=== PATIENT | female | born 1955 | race Caucasian/White ===

== ENCOUNTER 2017-11-28 13:17 | Inpatient (IN) | payer OTHER ==
[2017-11-28] MEDS ORDERED: IPRATROPIUM-ALBUTEROL 3 ML NEB INHALATION STA ×2 (13:33→14:51)
[2017-11-28] MEDS ORDERED: methylPREDNISolone SOD SUCCI 125 MG/2 ML VIAL IV STA (13:33)
[2017-11-28 14:12] LABS: Basophils % (A) 1 %; Eosinophils % (A) 1 %; HCT 40.2 % (34.0-46.0); HGB 12.9 gm/dL (11.4-16.0); Lymphocytes % (A) 22 %; MCH 25.7 pg (25.0-35.0); MCHC 32.1 g/dL (31.0-37.0); MCV 80.1 fL (80.0-100.0); Mean Platelet Volume 8.1; Monocytes # (A) 0.2 k/uL (0-1.0); Monocytes % (A) 5 %; Neutrophils # (A) 3.1 k/uL (1.3-7.7); Neutrophils % (A) 71 %; Platelet Count 164 k/uL (150-450); RBC 5.02 m/uL (3.80-5.40); RDW 14.1 % (11.5-15.5); WBC 4.4 k/uL (3.8-10.6)
[2017-11-28 14:23] LABS: ALT 155 U/L (9-52); AST 149 U/L (14-36); Albumin 4.1 g/dL (3.5-5.0); Alkaline Phosphatase 77 U/L (38-126); Anion Gap 15 mmol/L; Blood Urea Nitrogen 7 mg/dL (7-17); Calcium 9.5 mg/dL (8.4-10.2); Carbon Dioxide 24 mmol/L (22-30); Chloride 101 mmol/L (98-107); Glucose 136 mg/dL (74-99); Potassium 3.5 mmol/L (3.5-5.1); Sodium 140 mmol/L (137-145); Total Bilirubin 0.4 mg/dL (0.2-1.3); Total Protein 7.3 g/dL (6.3-8.2)
--- NOTE | 2017-11-28 14:26 | ED ---
General Adult HPI - General Chief complaint: Upper Respiratory Infection Stated complaint: FRANSISCA Time Seen by Provider: 11/28/17 13:25 Source: patient, RN notes reviewed Mode of arrival: ambulatory Limitations: no limitations - History of Present Illness Initial comments: Patient 61-year-old female with significant past medical history for asthma presenting today with a chief complaint of increased cough congestion and shortness of breath. She does admit that symptoms started 1 week ago was at the family doctor's office and received a Rocephin shot and steroids. States she was going out of and started on azithromycin and prednisone. She states took this when she came back home followed up with the family physician who again gave her another shot of steroids and antibiotics. States she still not having any improvement of the symptoms. She does not that she's been trying breathing treatments at home with little relief. Denies any other complaints or symptoms. Patient denies any recent fever, chills, chest pain, back pain, abdominal pain, nausea or vomiting, numbness or tingling, dysuria or hematuria, constipation or diarrhea, headaches or visual changes, or any other complaints. - Related Data Home Medications Medication Instructions Recorded Confirmed Albuterol Sulfate [Proventil Hfa] 2 puff INHALATION RT-Q4H PRN 11/28/17 11/28/17 Cholecalciferol [Vitamin D3] 5,000 unit PO DAILY 11/28/17 11/28/17 Clobetasol Propionate [Temovate 1 applic TOPICAL BID 11/28/17 11/28/17 0.05% Cream] Loratadine [Claritin] 10 mg PO HS 11/28/17 11/28/17 Losartan [Cozaar] 25 mg PO HS 11/28/17 11/28/17 Magnesium 30mg 30 mg PO DAILY 11/28/17 11/28/17 Metoprolol Succinate (ER) [Toprol 50 mg PO DAILY 11/28/17 11/28/17 Xl] Mometasone/Formoterol [Dulera 200 2 puff INHALATION RT-BID 11/28/17 11/28/17 Mcg/5 Mcg Inhaler] Montelukast [Singulair] 10 mg PO HS 11/28/17 11/28/17 Omeprazole 20 mg PO BID 11/28/17 11/28/17 Ranitidine HCl 150 mg PO BID 11/28/17 11/28/17 Sucralfate [Carafate] 1 gm PO AC-TID PRN 11/28/17 11/28/17 hydrOXYzine HCL [Atarax] 12.5 mg PO HS PRN 11/28/17 11/28/17 metFORMIN HCL 1,000 mg PO BID 11/28/17 11/28/17 sitaGLIPtin [Januvia] 100 mg PO DAILY 11/28/17 11/28/17 Allergies Allergy/AdvReac Type Severity Reaction Status Date / Time codeine Allergy Rash/Hives Verified 11/28/17 13:46 Review of Systems ROS Statement: Those systems with pertinent positive or pertinent negative responses have been documented in the HPI. ROS Other: All systems not noted in ROS Statement are negative. Past Medical History Past Medical History: Asthma, Diabetes Mellitus History of Any Multi-Drug Resistant Organisms: None Reported Past Surgical History: Section, Hysterectomy, Tonsillectomy Past Psychological History: No Psychological Hx Reported Smoking Status: Never smoker Past Alcohol Use History: None Reported Past Drug Use History: None Reported General Exam - General Exam Comments Initial Comments: General: The patient is awake and alert, in no distress, and does not appear acutely ill. Eye: Pupils are equal, round and reactive to light, extra-ocular movements are intact. No nystagmus. There is normal conjunctiva bilaterally. No signs of icterus. Ears, nose, mouth and throat: There are moist mucous membranes and no oral lesions. Neck: The neck is supple, there is no tenderness or JVD. Cardiovascular: There is a regular rate and rhythm. No murmur, rub or gallop is appreciated. Respiratory: Bilateral expiratory wheeze. respirations are non-labored, breath sounds are equal. No stridor, rales, or rhonchi.: Musculoskeletal: Normal ROM, no tenderness. Strength 5/5. Sensation intact. Pulses equal bilaterally 2+. Neurological: A&O x 3. CN II-XII intact, There are no obvious motor or sensory deficits. Coordination appears grossly intact. Speech is normal. Skin: Skin is warm and dry and no rashes or lesions are noted. Psychiatric: Cooperative, appropriate mood & affect, normal judgment. Limitations: no limitations Course Vital Signs 11/28/17 11/28/17 11/28/17 13:22 13:53 14:03 Temperature 98.7 F Pulse Rate 104 H 94 91 Respiratory 20 16 16 Rate Blood Pressure 108/67 O2 Sat by Pulse 94 L Oximetry 11/28/17 11/28/17 11/28/17 14:30 14:58 15:08 Temperature 98.9 F Pulse Rate 105 H 94 92 Respiratory 20 16 16 Rate Blood Pressure 125/80 O2 Sat by Pulse 92 L Oximetry Medical Decision Making - Medical Decision Making Patient reexamined at this time still has some bilateral expiratory wheeze. Her chest x-ray does show a lingular pneumonia. Patient's pulse ox remaining at 92% here in emergency room. Has been given 2 breathing treatments here in the emergency room along with steroids. Started on antibiotics cefepime and vancomycin as patient was recently treated with azithromycin and Levaquin. Patient will be admitted to the hospital. - Lab Data Result diagrams: 11/28/17 14:03 11/28/17 14:03 Lab Results 11/28/17 11/28/17 11/28/17 Range/Units 14:03 14:03 15:00 WBC 4.4 (3.8-10.6) k/uL RBC 5.02 (3.80-5.40) m/uL Hgb 12.9 (11.4-16.0) gm/dL Hct 40.2 (34.0-46.0) % MCV 80.1 (80.0-100.0) fL MCH 25.7 (25.0-35.0) pg MCHC 32.1 (31.0-37.0) g/dL RDW 14.1 (11.5-15.5) % Plt Count 164 (150-450) k/uL Neutrophils % 71 % Lymphocytes % 22 % Monocytes % 5 % Eosinophils % 1 % Basophils % 1 % Neutrophils # 3.1 (1.3-7.7) k/uL Lymphocytes # 1.0 (1.0-4.8) k/uL Monocytes # 0.2 (0-1.0) k/uL Eosinophils # 0.0 (0-0.7) k/uL Basophils # 0.0 (0-0.2) k/uL Sodium 140 (137-145) mmol/L Potassium 3.5 (3.5-5.1) mmol/L Chloride 101 (98-107) mmol/L Carbon Dioxide 24 (22-30) mmol/L Anion Gap 15 mmol/L BUN 7 (7-17) mg/dL Creatinine 0.65 (0.52-1.04) mg/dL Est GFR (MDRD) Af Amer >60 (>60 ml/min/1.73 sqM) Est GFR (MDRD) Non-Af >60 (>60 ml/min/1.73 sqM) Glucose 136 H (74-99) mg/dL Plasma Lactic Acid Joshua 3.8 H* (0.7-2.0) mmol/L Calcium 9.5 (8.4-10.2) mg/dL Total Bilirubin 0.4 (0.2-1.3) mg/dL AST 149 H (14-36) U/L ALT 155 H (9-52) U/L Alkaline Phosphatase 77 (38-126) U/L Total Protein 7.3 (6.3-8.2) g/dL Albumin 4.1 (3.5-5.0) g/dL Disposition Clinical Impression: CAP (community acquired pneumonia), Failure of outpatient treatment Disposition: ADMITTED IP TO THIS [facility] Condition: Stable Referrals: Denzel Elise MD [Primary Care Provider] - 1-2 days Time of Disposition: 15:01
--- NOTE | 2017-11-28 14:38 | XR ---
EXAMINATION TYPE: XR chest 2V DATE OF EXAM: 11/28/2017 COMPARISON: NONE INDICATION: Cough influenza pneumonia TECHNIQUE: Frontal and lateral views of the chest are obtained. FINDINGS: The heart size is normal. The pulmonary vasculature is normal. There is a mild infiltrate through the lingula. Minimal perihilar infiltrate is present.. IMPRESSION: 1. Bilateral perihilar and a lingular infiltrate. Correlate for pneumonia
[2017-11-28] MEDS ORDERED: VANCOMYCIN IV PER PHARMACY 1 EACH MISC MISCELLANE PRN (14:53)
[2017-11-28] MEDS ORDERED: CEFEPIME 2 GM in SODIUM CHLORIDE 0.9% 50 ML IVPB STA (14:53)
[2017-11-28] MEDS ORDERED: VANCOMYCIN 1,250 MG in SODIUM CHLORIDE 0.9% 250 ML IVPB STA (14:53)
[2017-11-28] MEDS ORDERED: NALOXONE 0.4 MG/ML 1 ML VIAL IV PRN (15:21)
[2017-11-28] MEDS ORDERED: ONDANSETRON 4 MG/2 ML VIAL IVP PRN (15:21)
[2017-11-28] MEDS ORDERED: IBUPROFEN 400 MG TAB PO PRN (15:21)
[2017-11-28] MEDS ORDERED: ACETAMINOPHEN TAB 325 MG TAB PO PRN (15:21)
[2017-11-28] MEDS ORDERED: SODIUM CHLORIDE 0.9% 1,000 ML IV STA ×2 (15:34)
[2017-11-28] MEDS ORDERED: SODIUM CHLORIDE 0.9% 1,000 ML IV ONE (15:43)
[2017-11-28 17:13] LABS: Glucose,Whole Blood 172 mg/dL (75-99)
[2017-11-28] MEDS ORDERED: SUCRALFATE 1 GM TAB PO PRN (18:00)
[2017-11-28] MEDS ORDERED: ALPRAZolam 0.25 MG TAB PO PRN (18:02)
[2017-11-28] MEDS ORDERED: TEMAZEPAM 15 MG CAP PO PRN (18:02)
[2017-11-28 18:07] VITALS: BMI 26.6
[2017-11-28] MEDS: PANTOPRAZOLE 40 MG TABLET PO SCH (18:45)
[2017-11-28] MEDS: metFORMIN 500 MG TAB PO SCH (18:45)
--- NOTE | 2017-11-28 19:24 | HP ---
HISTORY AND PHYSICAL DATE OF SERVICE: 11/28/2017 CHIEF COMPLAINT: Shortness of breath with cough and sputum and congestion. HISTORY OF PRESENT ILLNESS: This 61-year-old woman with a past medical history of multiple medical problems including history of asthma, diabetes mellitus, section, hysterectomy, being followed by Dr. Elise in the outpatient setting for the last several weeks. The patient had multiple courses of antibiotics including intravenous Rocephin and intramuscular Rocephin and Zithromax and steroid pack. Because of lack of improvement the patient came to [facility] and was found to have bilateral pneumonia. Patient admitted for further evaluation and treatment. There is no history of any fever, rigors. No headache, loss of consciousness, seizures. PAST MEDICAL HISTORY: Asthma, diabetes mellitus, section, hysterectomy. MEDICATIONS PRIOR TO ADMISSION: Include home medications are: 1. Toprol-XL 50 mg p.o. daily. 2. Vitamin D3 5000 daily. 3. Ranitidine 150 mg p.o. b.i.d. 4. Omeprazole 20 mg p.o. b.i.d. 5. Singular 10 mg q.h.s. 6. Proventil 2 puffs q.4h p.r.n. 7. Metformin 1000 mg p.o. b.i.d. 8. Magnesium 30 mg b.i.d. 9. Cozaar 25 mg q.h.s. 10.Januvia 100 mg p.o. daily. 12.Claritin 10 mg. 13.Temovate 0.05 b.i.d. 14.Carafate 1 g a.c. t.i.d. p.r.n. ALLERGIES: CODEINE. FAMILY HISTORY: No history of heart disease or strokes in the family. SOCIAL HISTORY: No history of smoking. No history of alcohol intake. REVIEW OF SYSTEMS: ENT: No diminished hearing or vision. CARDIOVASCULAR: No angina. RESPIRATORY: As mentioned earlier. GI: No nausea or vomiting. : No dysuria. NERVOUS SYSTEM: No numbness, weakness. ALLERGY/IMMUNOLOGY: As mentioned. MUSCULOSKELETAL: As mentioned. HEMATOLOGY: No history anemia. ENDOCRINE: History of diabetes. No hypothyroid. CONSTITUTIONAL: As mentioned earlier. DERMATOLOGY: Negative. RHEUMATOLOGY: Negative. PSYCHIATRY: As mentioned earlier. PHYSICAL EXAMINATION: Alert, oriented x3. Pulse 92, blood pressure 104/57, respirations 20, temperature 98.2, pulse ox 97% on room air. HEENT: Conjunctivae normal. Oral mucosa moist. NECK: No jugular venous distention. No carotid bruit. No lymph node enlargement. CARDIOVASCULAR: S1, S2. RESPIRATORY: Breath sounds diminished in the bases. Breathing efforts are markedly increased. Bilateral scattered rhonchi and expiratory wheezing and crackles mainly in the bases posteriorly. ABDOMEN: Soft, nontender. No mass palpable. LEGS: No edema, no swelling. NERVOUS SYSTEM: Higher functions as mentioned earlier. Moves all four limbs. No focal motor deficits LYMPHATICS: No lymphadenopathy in the neck, axillae, groin. SKIN: No ulcers, rash, bleeding. LAB STUDIES: At this time shows CBC within normal limits. Glucose 136. Lactic acid 3.8. LFTs are noted. ASSESSMENT: 1. Acute bronchial asthma acute exacerbation with bibasilar pneumonia possibly gram- negative. 2. Elevated lactic acid with possible sepsis. 3. Increased AST, ALT, possibly hepatitis secondary to pneumonia. 4. Asthma. 5. Diabetes mellitus type 2. 6. History of section. 7. History of hysterectomy. 8. History of tonsillectomy. RECOMMENDATIONS AND DISCUSSION: This 61-year-old woman who presented with multiple complex medical issues, will monitor the patient closely. Continue the current management and symptomatic treatment. Will initiate broad-spectrum IV antibiotics, intensive bronchodilators and also steroids. Otherwise, patient is started on combination of and vancomycin. Once the patient is better, we can downgrade antibiotics. Otherwise I will monitor the patient closely currently. I would also recommend insulin drip if the sugars are more than 250. Otherwise, continue to monitor. DVT prophylaxis. Prognosis guarded because of multiple complex medical issues. Further recommendations to follow. A copy of dictation forwarded to Dr. Denzel Elise who is the primary physician. Home medication are reconciled. MMODL / IJN: [id number] / MTDD
[2017-11-28] MEDS ORDERED: IPRATROPIUM-ALBUTEROL 3 ML NEB INHALATION SCH (20:00)
[2017-11-28] MEDS ORDERED: NON-FORMULARY DRUG (Mometasone/Formoterol [Dulera 200 Mcg/5 Mcg Inhaler] 2 PUFF) INHALATION SCH (20:00)
[2017-11-28 20:16] LABS: Glucose,Whole Blood 231 mg/dL (75-99)
[2017-11-28] MEDS: FORMOTEROL FUMARATE 20 MCG/2 ML NEBU INHALATION SCH (20:35)
[2017-11-28] MEDS: BUDESONIDE 1 MG/2 ML NEBU INHALATION SCH (20:35)
[2017-11-28] MEDS ORDERED: IPRATROPIUM-ALBUTEROL 3 ML NEB INHALATION PRN (20:41)
[2017-11-28] MEDS: methylPREDNISolone SOD SUCCI 125 MG/2 ML VIAL IV SCH (21:02)
[2017-11-28] MEDS: CLOBETASOL PROP 0.05% CR 15GM TOPICAL SCH (21:02)
[2017-11-28] MEDS: MONTELUKAST 10 MG TAB PO SCH (21:03)
[2017-11-28] MEDS: INSULIN ASPART 100 UNIT/ML 1 ML 10 ML VIAL SQ SCH (21:03)
[2017-11-28] MEDS: LORATADINE 10 MG TAB PO SCH (21:03)
[2017-11-28] MEDS: FAMOTIDINE 20 MG TAB PO SCH (21:03)
[2017-11-28] MEDS: LOSARTAN 25 MG TAB PO SCH (21:45)
[2017-11-28] MEDS: CEFEPIME 2 GM in SODIUM CHLORIDE 0.9% 50 ML IVPB SCH (23:55)
[2017-11-29] MEDS: methylPREDNISolone SOD SUCCI 125 MG/2 ML VIAL IV SCH ×4 (01:26→17:57)
[2017-11-29] MEDS ORDERED: VANCOMYCIN 1,250 MG in SODIUM CHLORIDE 0.9% 250 ML IVPB SCH (06:00)
[2017-11-29 06:55] LABS: Glucose,Whole Blood 217 mg/dL (75-99)
[2017-11-29 07:25] LABS: Basophils % (A) 0 %; Eosinophils % (A) 1 %; HCT 35.4 % (34.0-46.0); Hypochromasia Slight; Lymphocytes # (A) 0.5 k/uL (1.0-4.8); Lymphocytes % (A) 18 %; MCH 25.1 pg (25.0-35.0); MCHC 31.1 g/dL (31.0-37.0); MCV 80.8 fL (80.0-100.0); Mean Platelet Volume 8.3; Monocytes # (A) 0.1 k/uL (0-1.0); Monocytes % (A) 3 %; Neutrophils # (A) 2.1 k/uL (1.3-7.7); Neutrophils % (A) 78 %; Platelet Count 172 k/uL (150-450); RBC 4.38 m/uL (3.80-5.40); RDW 14.1 % (11.5-15.5); WBC 2.7 k/uL (3.8-10.6)
[2017-11-29] MEDS ORDERED: PANTOPRAZOLE 40 MG TABLET PO SCH (07:30)
[2017-11-29 07:38] LABS: ALT 112 U/L (9-52); AST 75 U/L (14-36); Albumin 3.3 g/dL (3.5-5.0); Alkaline Phosphatase 66 U/L (38-126); Anion Gap 11 mmol/L; Blood Urea Nitrogen 8 mg/dL (7-17); Calcium 9.2 mg/dL (8.4-10.2); Carbon Dioxide 22 mmol/L (22-30); Chloride 105 mmol/L (98-107); Glucose 222 mg/dL (74-99); Potassium 3.8 mmol/L (3.5-5.1); Sodium 138 mmol/L (137-145); Total Bilirubin 0.3 mg/dL (0.2-1.3); Total Protein 6.2 g/dL (6.3-8.2)
[2017-11-29] MEDS: metFORMIN 500 MG TAB PO SCH ×2 (07:56→17:55)
[2017-11-29] MEDS: PANTOPRAZOLE 40 MG TABLET PO SCH ×2 (07:56→17:55)
[2017-11-29] MEDS: MAGNESIUM OXIDE 400 MG TAB PO SCH (07:56)
[2017-11-29] MEDS: METOPROLOL SUCCINATE (ER) 50 MG TAB.ER.24H PO SCH (07:56)
[2017-11-29] MEDS: CLOBETASOL PROP 0.05% CR 15GM TOPICAL SCH ×2 (07:57→22:01)
[2017-11-29] MEDS: CEFEPIME 2 GM in SODIUM CHLORIDE 0.9% 50 ML IVPB SCH (07:57)
[2017-11-29] MEDS: INSULIN ASPART 100 UNIT/ML 1 ML 10 ML VIAL SQ SCH ×4 (07:57→22:31)
[2017-11-29] MEDS: FAMOTIDINE 20 MG TAB PO SCH ×2 (07:58→22:02)
[2017-11-29] MEDS: FORMOTEROL FUMARATE 20 MCG/2 ML NEBU INHALATION SCH ×2 (08:03→18:56)
[2017-11-29] MEDS: IPRATROPIUM-ALBUTEROL 3 ML NEB INHALATION SCH ×4 (08:03→18:56)
[2017-11-29] MEDS: BUDESONIDE 1 MG/2 ML NEBU INHALATION SCH ×2 (08:03→18:56)
[2017-11-29] MEDS ORDERED: LINAGLIPTIN 5 MG TABLET PO SCH (09:00)
[2017-11-29] MEDS: NICOTINE 14MG/24HR PATCH TRANSDERM SCH (10:00)
[2017-11-29 11:10] LABS: Glucose,Whole Blood 177 mg/dL (75-99)
--- NOTE | 2017-11-29 11:17 | P.CNPUL ---
History of Present Illness Consult date: 11/29/17 Reason for consult: dyspnea, cough, asthma, pneumonia, abnormal CXR/CT Chief complaint: Shortness of breath, cough, upper respiratory infection History of present illness: Consultation dated 11/29/2017 This is a 61-year-old female with a history of chronic bronchial asthma. Her asthma is relatively mild controlled on a rescue inhaler Singulair and a combination long-acting beta agonist and inhaled corticosteroid. The last week and a half or so she hasn't been feeling well. She saw her family doctor in [place] and was prescribed a Depo-Medrol shot a Rocephin injection and sent on her way with a Z-Lenard and a Medrol Dosepak. She did not get any better and she came back and he got similar treatment. The patient states that her complaints included increasing shortness of breath chest congestion coughing wheezing. There is no fever or chills. The patient feels like she initially had influenza. She apparently was not tested but given a prescription for Tamiflu but lost it. She never took the Tamiflu. She eventually came into the emergency room where she was evaluated and found to have some patchy bilateral infiltrates and was admitted with a diagnosis of pneumonia. Likely, her asthma was a bit active as well. She sees my partner for her as much as relatively well-controlled as mentioned above. The patient seemed be resting relatively well. Maybe feels a bit better today than she did yesterday in the emergency department. She is a nonsmoker. Works as a massage therapist. Review of Systems A 12 point review of system is positive for shortness breath chest tightness wheezing cough chest congestion and minimal phlegm production. No fever or chills at the current time. Likely had the flu maybe 7-10 days ago and did have fever at that time. She was never tested for influenza, was given a prescription for Tamiflu, but never took it because she lost the prescription. Past Medical History Past Medical History: Asthma, Diabetes Mellitus History of Any Multi-Drug Resistant Organisms: None Reported Past Surgical History: Section, Hysterectomy, Tonsillectomy Past Anesthesia/Blood Transfusion Reactions: No Reported Reaction Past Psychological History: No Psychological Hx Reported Smoking Status: Never smoker Past Alcohol Use History: None Reported Past Drug Use History: None Reported - Past Family History Father Family Medical History: Diabetes Mellitus Mother Family Medical History: Dementia, Osteoarthritis (OA) Medications and Allergies Home Medications Medication Instructions Recorded Confirmed Type Albuterol Sulfate [Proventil Hfa] 2 puff INHALATION RT-Q4H PRN 11/28/17 History Cholecalciferol [Vitamin D3] 5,000 unit PO DAILY 11/28/17 11/28/17 History Clobetasol Propionate [Temovate 1 applic TOPICAL BID 11/28/17 11/28/17 History 0.05% Cream] Loratadine [Claritin] 10 mg PO HS 11/28/17 11/28/17 History Losartan [Cozaar] 25 mg PO HS 11/28/17 11/28/17 History Magnesium 30mg 30 mg PO DAILY 11/28/17 11/28/17 History Metoprolol Succinate (ER) [Toprol 50 mg PO DAILY 11/28/17 11/28/17 History Xl] Mometasone/Formoterol [Dulera 200 2 puff INHALATION RT-BID 11/28/17 11/28/17 History Mcg/5 Mcg Inhaler] Montelukast [Singulair] 10 mg PO HS 11/28/17 11/28/17 History Omeprazole 20 mg PO BID 11/28/17 11/28/17 History Ranitidine HCl 150 mg PO BID 11/28/17 11/28/17 History Sucralfate [Carafate] 1 gm PO AC-TID PRN 11/28/17 11/28/17 History hydrOXYzine HCL [Atarax] 12.5 mg PO HS PRN 11/28/17 11/28/17 History metFORMIN HCL 1,000 mg PO BID 11/28/17 11/28/17 History sitaGLIPtin [Januvia] 100 mg PO DAILY 11/28/17 11/28/17 History Allergies Allergy/AdvReac Type Severity Reaction Status Date / Time codeine Allergy Rash/Hives Verified 11/28/17 13:46 Physical Exam Osteopathic Statement: *. No significant issues noted on an osteopathic structural exam other than those noted in the History and Physical/Consult. Vitals: Vital Signs Temp Pulse Pulse Resp BP BP Pulse Ox 11/29/17 08:23 118 H 11/29/17 08:15 115 H 11/29/17 08:03 113 H 11/29/17 08:00 105 H 18 11/29/17 07:00 98.1 F 105 H 18 125/59 92 L 11/29/17 05:34 84 11/29/17 05:26 84 11/28/17 23:55 16 11/28/17 22:49 97.4 F L 91 16 113/55 95 11/28/17 22:48 97.4 F L 91 16 113/55 95 11/28/17 20:49 84 11/28/17 20:35 84 11/28/17 16:15 98.3 F 99 18 135/63 98 11/28/17 15:31 98.2 F 92 20 104/57 97 11/28/17 15:08 92 16 11/28/17 14:58 94 16 11/28/17 14:30 98.9 F 105 H 20 125/80 92 L 11/28/17 14:03 91 16 11/28/17 13:53 94 16 11/28/17 13:22 98.7 F 104 H 20 108/67 94 L Intake and Output 11/28/17 11/29/17 11/29/17 22:59 06:59 14:59 Intake Total 590 1040 Balance 590 1040 Intake: Intake, IV Titration 800 Amount Sodium Chloride 0.9% 1, 800 000 ml @ 100 mls/hr IV . Q10H STA Rx#:[id number] Oral 590 240 Other: Voiding Method Toilet # Voids 2 1 Weight 70.307 kg No acute distress, oriented 3. HEENT examination is grossly unremarkable. Mucous membranes are moist. No oral lesions. Neck supple. Full range of motion. No adenopathy thyromegaly or neck vein distention. Cardiovascular examination reveals regular rhythm rate. S1-S2 normal. No S3 or S4. No discernible murmur noted. Lungs reveal few scattered rhonchi bilaterally. There is slight prolongation on forced maneuver. Some minimal high-pitched wheezes are noted. Breath sounds are equal bilaterally. Most adventitious lung sounds are noted in the left lung. Abdomen soft bowel sounds are heard. No masses or tenderness. Extremities are intact. No cyanosis clubbing or edema. Skin is without rash or lesion. Neurologic examination is brief but nonfocal. Results - Laboratory Findings CBC and BMP: 11/29/17 06:48 11/29/17 06:48 Abnormal lab findings: Abnormal Labs 0311/28/17 11/28/17 14:03 15:00 17:11 WBC Hgb Lymphocytes # Creatinine Glucose 136 H POC Glucose (mg/dL) 172 H Plasma Lactic Acid Joshua 3.8 H* AST 149 H ALT 155 H Total Protein Albumin 11/28/17 11/28/17 11/29/17 19:01 20:15 06:48 WBC 2.7 L Hgb 11.0 L Lymphocytes # 0.5 L Creatinine Glucose POC Glucose (mg/dL) 231 H Plasma Lactic Acid Joshua 3.2 H* AST ALT Total Protein Albumin 11/29/17 11/29/17 06:48 06:53 WBC Hgb Lymphocytes # Creatinine 0.44 L Glucose 222 H POC Glucose (mg/dL) 217 H Plasma Lactic Acid Joshua AST 75 H ALT 112 H Total Protein 6.2 L Albumin 3.3 L - Diagnostic Findings Chest x-ray: image reviewed (Patient interviewed and examined. Labs medications and x-rays are reviewed.) Assessment and Plan Assessment: Assessment Bilateral patchy pneumonia with mild exacerbation of asthma in a patient who may have had influenza 7 or 10 days ago. Multiple environmental ALLERGIES Vitamin D deficiency Hypertension Diabetes mellitus Gastroesophageal reflux disease Previous history of hysterectomy and tonsillectomy Lifelong nonsmoker. Plan: Plan dated 11/29/2017 X-rays labs and medications are all reviewed. The patient's a bit better today than she was yesterday. We'll make sure that she is on appropriate medications including short acting beta agonist, short acting muscarinic antagonist, long- acting beta agonist, inhaled corticosteroids, systemic corticosteroids, and antibiotics. Additional recommendations and suggestions are forthcoming. Prognosis is guarded. We'll continue to follow closely. Time with Patient: Greater than 30
[2017-11-29] MEDS ORDERED: AZITHROMYCIN 500 MG TAB PO SCH (12:00)
[2017-11-29] MEDS ORDERED: SODIUM CHLORIDE 0.9% 1,000 ML IV ONE (12:08)
[2017-11-29] MEDS: CHOLECALCIFEROL 1,000 UNIT TAB PO SCH (12:21)
[2017-11-29] MEDS ORDERED: SODIUM CHLORIDE 0.9% 500 ML IV ONE (16:21)
[2017-11-29] MEDS ORDERED: VANCOMYCIN IV PER PHARMACY 1 EACH MISC MISCELLANE PRN (16:40)
[2017-11-29] MEDS ORDERED: PIPERACILLIN-TAZOBACTAM 3.375 GM in DEXTROSE/WATER 1 50ML.BAG IVPB SCH (17:00)
[2017-11-29 17:06] LABS: Glucose,Whole Blood 194 mg/dL (75-99)
[2017-11-29] MEDS: VANCOMYCIN 1,250 MG in SODIUM CHLORIDE 0.9% 250 ML IVPB SCH (17:53)
[2017-11-29 17:56] LABS: Hemoglobin A1C 8.2 % (4.0-6.0)
--- NOTE | 2017-11-29 19:16 | PN ---
PROGRESS NOTE DATE OF SERVICE: 11/29/2017 This 61-year-old woman is admitted with cough and sputum with possible bibasilar pneumonia. The patient also has features of sepsis. Lactic acid elevated. Patient has severe shortness of breath. Dr. Erazo is following the patient closely. PAST MEDICAL HISTORY: Reviewed. REVIEW OF SYSTEMS: CARDIOVASCULAR: No angina. RESPIRATORY: As mentioned earlier. GI: No nausea. : No dysuria. NERVOUS SYSTEM: No numbness, weakness. CURRENT MEDICATIONS: Current medications are reviewed and include: 1. Tylenol 650 q.6h p.r.n. 2. DuoNeb q.i.d. and p.r.n. 3. Xanax 0.5 q.h.s. 4. Pulmicort 1 mg b.i.d. 5. Vitamin D3 5000 daily. 6. Temovate 1 application b.i.d. 7. Pepcid 20 mg b.i.d. 8. Perforomist 20 mg b.i.d. 9. Atarax 12.5 mg q.h.s. 10.Motrin 400 mg q.6h p.r.n. 11.NovoLog q.a.c. and at bedtime. 12.Tradjenta 5 mg. 13.Claritin 10 mg daily. 14.Cozaar 25 mg q.h.s. 15.Magnesium oxide 400 mg daily. 16.Glucophage 1000 mg b.i.d. 17.Solu-Medrol 60 IV q.6. 18.Toprol-XL 50 mg p.o. daily. 19.Narcan 0.2 q.2h p.r.n. 20.Habitrol 14 daily. 21.Zofran 4 mg IV q.8. 22.Protonix 40 mg b.i.d. 23.Zosyn 3.5 IV q.8h. 24.Carafate 1 g a.c. t.i.d. 25.Restoril 50 mg q.h.s. p.r.n. 26.Vancomycin 1.25 mg q.8h. PHYSICAL EXAM: Patient is alert and oriented x3. Pulse 112. The patient is extremely short of breath. The blood pressure is 140/61, respiration 18, temperature 98 degrees, pulse ox 98% room air. HEENT: Conjunctivae normal. Oral mucosa moist. NECK: No jugular venous distention. CARDIOVASCULAR: S1, S2. RESPIRATORY: Breath sounds diminished in the bases. Bilateral scattered rhonchi and crackles. Expiratory wheezing also present. ABDOMEN: Soft, nontender. No mass palpable. LEGS: No edema. NERVOUS SYSTEM: Higher function as mentioned earlier, moves all 4 limbs, no focal deficits. LYMPHATIC: No lymphadenopathy in the neck, axillae, groin. SKIN: No ulcer, rash or bleeding. LAB STUDIES: WBC 2.2, hemoglobin 11, 217. Lactic acid 5 and 6.1. ASSESSMENT: 1. Acute bronchial asthma acute exacerbation with bibasilar pneumonia possibly gram- negative with sepsis, present on admission. 2. Elevated lactic acid with sepsis. 3. Increased AST, ALT possibly hepatitis secondary to pneumonia. 4. Asthma. 5. Diabetes mellitus type 2. 6. section. 7. History of hysterectomy. 8. History of tonsillectomy. RECOMMENDATIONS AND DISCUSSION: I recommend to continue current management, continue symptomatic treatment with bronchodilators. Continue with empiric antibiotics. Closely follow. Guarded prognosis. Further recommendations to follow. MMODL / IJN: [id number] / MTDD
[2017-11-29] MEDS: PIPERACILLIN-TAZOBACTAM 3.375 GM in DEXTROSE/WATER 1 50ML.BAG IVPB SCH (20:01)
[2017-11-29 20:06] LABS: Glucose,Whole Blood 278 mg/dL (75-99)
[2017-11-29] MEDS ORDERED: INSULIN REGULAR 100 UNIT in SODIUM CHLORIDE 0.9% 100 ML IV SCH (22:00)
[2017-11-29] MEDS: LOSARTAN 25 MG TAB PO SCH (22:02)
[2017-11-29] MEDS: LORATADINE 10 MG TAB PO SCH (22:02)
[2017-11-29] MEDS: MONTELUKAST 10 MG TAB PO SCH (22:02)
[2017-11-29 22:21] LABS: Glucose,Whole Blood 188 mg/dL (75-99)
[2017-11-29 22:55] LABS: Glucose,Whole Blood 185 mg/dL (75-99)
--- NOTE | 2017-11-29 23:52 | CONS ---
CONSULTATION DATE OF SERVICE: 11/29/2017. REASON FOR CONSULTATION: Pneumonia and antibiotic recommendation. HISTORY OF PRESENT ILLNESS: The patient is a 61-year-old female with a past medical history of asthma, started getting sick about 2 weeks ago. 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 The very next day she started with a runny nose, sore throat, and generalized body aches. Apparently the patient went to a family doctor who did give her a dose of Rocephin and steroids. The patient was started on Zithromax and prednisone. No flu testing was done at that time. With these symptoms not improving, she went back in to be evaluated by the physician where the patient's antibiotic was switched over to her Levaquin. However, the patient's symptoms continued to get worse. Her main symptom has been increasing shortness of breath with minimal exertion. The patient also have a cough and bringing up some whitish to yellow sputum. No hemoptysis. No significant chest pain. No nausea, vomiting, abdominal pain, or any diarrhea. With these symptoms, the patient came to the [facility] ER where the patient was evaluated by the ER physician. Chest x-ray showed bilateral perihilar and lingular infiltrate, could be related to pneumonia. The patient has been started on Zithromax and Rocephin and admitted to the hospital. ID was consulted for further recommendations regarding antibiotic therapy. REVIEW OF SYSTEMS: CONSTITUTIONAL: Positive for weakness along with some chills. EYES: No complaints. ENT: As per HPI. RESPIRATORY: As per HPI. CARDIOVASCULAR: No complaint. GENITOURINARY: No complaints. GASTROINTESTINAL: No complaint. MUSCULOSKELETAL: No complaint. INTEGUMENTARY: No complaint. PSYCHOLOGICAL: No complaint. ENDOCRINE: No complaint. NEUROLOGIC: No complaint. PAST MEDICAL HISTORY: Significant for asthma, diabetes mellitus. PAST SURGICAL HISTORY: , hysterectomy, tonsillectomy. SOCIAL HISTORY: No history of smoking, drinking, or drug use. FAMILY HISTORY: No pertinent findings noticed. ALLERGIES: CODEINE. MEDICATIONS: Include the patient is currently on Rocephin, Zithromax, Xanax, Pulmicort, vitamin D3, Pepcid, antibiotics, Motrin, Tradjenta, Claritin, Cozaar, Mag oxide, Glucophage, Solu- Medrol, Toprol-XL, Singulair, Narcan, Zofran (Protonix). EXAMINATION: Blood pressure is 114/54 with a pulse of 110, temperature of 98. She is 90% on room air. GENERAL DESCRIPTION: A middle aged female lying in bed in no distress. No tachypnea or accessory muscle of respiration use. HEENT: Shows no pallor or scleral icterus. Oral mucosa is dry. Minimal surrounding erythema. No thrush. NECK: Trachea central, no thyromegaly. LUNGS: Unlabored breathing. Decreased breath sounds. Occasional wheeze. HEART: Heart S1, S2. Regular rate and rhythm. ABDOMEN: Soft, no tenderness. No guarding or rigidity. EXTREMITIES: No edema of the feet. SKIN: No rashes. No masses palpable. NEUROLOGIC: The patient is awake, alert, oriented x3. Mood affect normal. LABS: Hemoglobin 11, white count 2.7, BUN of 8, creatinine 0.44. White count has been normal. Lactic acid 3.2 up to 5.0. Liver enzymes slightly elevated. Influenza serology has been negative. Chest x-ray with bilateral perihilar infiltrate. DIAGNOSTIC IMPRESSION AND PLAN: Patient admitted to the hospital with increasing shortness of breath and cough. The symptoms has been going on for almost 2 weeks. Patient has failed outpatient Zithromax as well as Levaquin therapy. The patient initially had symptoms more likely of acute influenza-type picture, now with pneumonia, likely post influenza pneumonia, for which we will need to cover for the resistant gram-positive as well as gram-negative pathogen to be the likely etiology. PLAN: 1. We will try to obtain sputum for Gram stain culture. 2. Discontinue Rocephin and Zithromax. The patient failed dosed antibiotic in the outpatient setting. 3. We will start the patient on vancomycin pharmacy to dose, target 15, avoid nephrotoxicity, watch kidney function very closely. 4. Zosyn 3.375 every 8 hours. 5. Depending upon the clinical response as well as cultures, will adjust her medications further if needed. Thank you for this consultation. Will follow this patient along with you. MMODL / IJN: [id number] /
[2017-11-30] MEDS: methylPREDNISolone SOD SUCCI 125 MG/2 ML VIAL IV SCH ×5 (00:19→23:38)
[2017-11-30] MEDS: VANCOMYCIN 1,250 MG in SODIUM CHLORIDE 0.9% 250 ML IVPB SCH ×4 (00:19→23:37)
[2017-11-30 00:37] LABS: Glucose,Whole Blood 144 mg/dL (75-99)
[2017-11-30] MEDS: PIPERACILLIN-TAZOBACTAM 3.375 GM in DEXTROSE/WATER 1 50ML.BAG IVPB SCH ×3 (02:23→18:35)
[2017-11-30 05:03] LABS: Glucose,Whole Blood 165 mg/dL (75-99)
[2017-11-30 06:58] LABS: Glucose,Whole Blood 141 mg/dL (75-99)
[2017-11-30] MEDS ORDERED: VANCOMYCIN TROUGH DUE 1 EACH MISC MISCELLANE ONE (07:00)
[2017-11-30] MEDS: BUDESONIDE 1 MG/2 ML NEBU INHALATION SCH ×2 (07:14→19:14)
[2017-11-30] MEDS: IPRATROPIUM-ALBUTEROL 3 ML NEB INHALATION SCH ×4 (07:14→19:14)
[2017-11-30] MEDS: FORMOTEROL FUMARATE 20 MCG/2 ML NEBU INHALATION SCH ×2 (07:14→19:14)
[2017-11-30] MEDS: metFORMIN 500 MG TAB PO SCH ×2 (07:17→17:20)
[2017-11-30] MEDS: PANTOPRAZOLE 40 MG TABLET PO SCH ×2 (07:17→17:20)
[2017-11-30] MEDS: FAMOTIDINE 20 MG TAB PO SCH ×2 (07:17→21:13)
[2017-11-30 07:18] LABS: Basophils % (A) 0 %; Eosinophils % (A) 0 %; HCT 31.9 % (34.0-46.0); HGB 9.9 gm/dL (11.4-16.0); Lymphocytes # (A) 0.8 k/uL (1.0-4.8); Lymphocytes % (A) 10 %; MCV 80.6 fL (80.0-100.0); Mean Platelet Volume 8.3; Monocytes # (A) 0.4 k/uL (0-1.0); Monocytes % (A) 4 %; Neutrophils # (A) 7.2 k/uL (1.3-7.7); Neutrophils % (A) 85 %; Platelet Count 201 k/uL (150-450); RBC 3.95 m/uL (3.80-5.40); RDW 14.4 % (11.5-15.5); WBC 8.5 k/uL (3.8-10.6)
[2017-11-30] MEDS: NICOTINE 14MG/24HR PATCH TRANSDERM SCH ×2 (07:18→08:41)
[2017-11-30] MEDS: METOPROLOL SUCCINATE (ER) 50 MG TAB.ER.24H PO SCH (07:18)
[2017-11-30] MEDS: MAGNESIUM OXIDE 400 MG TAB PO SCH (07:18)
[2017-11-30] MEDS: CLOBETASOL PROP 0.05% CR 15GM TOPICAL SCH ×2 (07:19→21:13)
[2017-11-30 07:33] LABS: ALT 80 U/L (9-52); AST 47 U/L (14-36); Albumin 2.8 g/dL (3.5-5.0); Alkaline Phosphatase 49 U/L (38-126); Anion Gap 11 mmol/L; Blood Urea Nitrogen 9 mg/dL (7-17); Calcium 8.9 mg/dL (8.4-10.2); Carbon Dioxide 22 mmol/L (22-30); Chloride 109 mmol/L (98-107); Glucose 140 mg/dL (74-99); Potassium 3.4 mmol/L (3.5-5.1); Sodium 142 mmol/L (137-145); Total Bilirubin 0.3 mg/dL (0.2-1.3); Total Protein 5.4 g/dL (6.3-8.2)
[2017-11-30] MEDS ORDERED: cefTRIAXone IN SWFI 1,000 MG/10 ML SYRINGE IVP SCH (09:00)
[2017-11-30 11:12] LABS: Glucose,Whole Blood 212 mg/dL (75-99)
[2017-11-30] MEDS: 0.9% NACL WITH KCL 40 MEQ/L 1,000 ML IV SCH ×2 (11:55→19:50)
[2017-11-30] MEDS: CHOLECALCIFEROL 1,000 UNIT TAB PO SCH (11:56)
--- NOTE | 2017-11-30 12:03 | XR ---
EXAMINATION TYPE: XR chest 1V portable DATE OF EXAM: 11/30/2017 COMPARISON: Prior chest x-ray 11/28/2017 HISTORY: Pneumonia TECHNIQUE: Single frontal view of the chest is obtained. FINDINGS: Bilateral patchy areas of airspace disease are again noted, some of which are more conspic uous. No evident pneumothorax or pleural effusion. Heart size is stable. Patient is rotated. IMPRESSION: Findings could represent bilateral pneumonia, correlate, follow-up is recommended.
--- NOTE | 2017-11-30 16:06 | P.PN ---
Subjective Progress Note Date: 11/30/17 61-year-old female patient is being seen in follow-up. The patient is a lifetime nonsmoker. She has history of bronchial asthma maintained on a combination of Dulera and Singulair on outpatient basis. She is also diabetic. She came in for pneumonia, asthma exacerbation and some mild leukocytosis. Her lactic acid level has been fluctuating still and a venous lactate was high as 6.1. After achieving it was a level of 3.2 at this noontime the lactic acid came back at 5.7. The patient is was resuscitated IV fluids. The patient is also covered with broad-spectrum antibiotics and currently the patient is receiving a combination of Zosyn and vancomycin. Renal function is within normal limits. The patient is taking metformin yet the patient did not take any contrast material. The patient has no leukocytosis and the white cell count is at 8.5. A follow-up chest x-ray was done today and the patient was found to have bilateral pneumonia and bilateral patchy airspace disease was noted some of which are more conspicuous. There is no evidence of any pleural effusion or pneumothorax. Patient remains on 2 L of oxygen nasal cannula and the pulse ox is around 96%. Vancomycin trough was 17.9 from today. 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 The patient check negative for influenza. Objective - Vital Signs Vital signs: Vital Signs Temp 97.5 F L 11/30/17 15:44 Pulse 80 11/30/17 15:44 Resp 16 11/30/17 15:44 BP 138/65 11/30/17 15:44 Pulse Ox 96 11/30/17 15:44 Intake & Output 11/29/17 11/30/17 11/30/17 18:59 06:59 18:59 Intake Total 200 5.459 1400 Balance 200 5.459 1400 Intake: Intake, IV Titration 5.459 950 Amount 0.9% NaCl with KCl 40 Meq 150 /l 1,000 ml @ 75 mls/hr IV .[id number] [facility] Rx#: [id number] Insulin Regular 100 unit 5.459 In Sodium Chloride 0.9% 100 ml @ Titrate IV .Q0M [facility] Rx#:[id number] Piperacillin-Tazobactam 3 50 .375 gm In Dextrose/Water 1 50ml.bag @ 12.5 mls/hr IVPB Q8H [facility] Rx#: [id number] Sodium Chloride 0.9% 500 500 ml @ 999 mls/hr IV .Q31M [facility] Rx#:[id number] Vancomycin 1,250 mg In 250 Sodium Chloride 0.9% 250 ml @ 125 mls/hr IVPB Q8HR [facility] Rx#:[id number] Oral 200 450 Other: Voiding Method Toilet Toilet Toilet # Voids 3 1 4 # Bowel Movements 1 - Exam No acute distress, oriented 3. HEENT examination is grossly unremarkable. Mucous membranes are moist. No oral lesions. Neck supple. Full range of motion. No adenopathy thyromegaly or neck vein distention. Cardiovascular examination reveals regular rhythm rate. S1-S2 normal. No S3 or S4. No discernible murmur noted. Lungs reveal few scattered rhonchi bilaterally. There is slight prolongation on forced maneuver. Some minimal high-pitched wheezes are noted. Breath sounds are equal bilaterally. Most adventitious lung sounds are noted in the left lung. Abdomen soft bowel sounds are heard. No masses or tenderness. Extremities are intact. No cyanosis clubbing or edema. Skin is without rash or lesion. Neurologic examination is brief but nonfocal. - Labs CBC & Chem 7: 11/30/17 07:00 11/30/17 07:00 Labs: Abnormal Lab Results - Last 24 Hours (Table) 11/29/17 11/29/17 11/29/17 Range/Units 06:48 17:04 20:01 Hgb (11.4-16.0) gm/dL Hct (34.0-46.0) % Lymphocytes # (1.0-4.8) k/uL Potassium (3.5-5.1) mmol/L Chloride (98-107) mmol/L Glucose (74-99) mg/dL POC Glucose (mg/dL) 194 H 278 H (75-99) mg/dL Hemoglobin A1c 8.2 H (4.0-6.0) % Plasma Lactic Acid Joshua (0.7-2.0) mmol/L AST (14-36) U/L ALT (9-52) U/L Total Protein (6.3-8.2) g/dL Albumin (3.5-5.0) g/dL 11/29/17 11/29/17 11/29/17 Range/Units 20:17 22:18 22:51 Hgb (11.4-16.0) gm/dL Hct (34.0-46.0) % Lymphocytes # (1.0-4.8) k/uL Potassium (3.5-5.1) mmol/L Chloride (98-107) mmol/L Glucose (74-99) mg/dL POC Glucose (mg/dL) 188 H 185 H (75-99) mg/dL Hemoglobin A1c (4.0-6.0) % Plasma Lactic Acid Joshua 5.5 H* (0.7-2.0) mmol/L AST (14-36) U/L ALT (9-52) U/L Total Protein (6.3-8.2) g/dL Albumin (3.5-5.0) g/dL 11/30/17 11/30/17 11/30/17 Range/Units 00:00 00:36 04:59 Hgb (11.4-16.0) gm/dL Hct (34.0-46.0) % Lymphocytes # (1.0-4.8) k/uL Potassium (3.5-5.1) mmol/L Chloride (98-107) mmol/L Glucose (74-99) mg/dL POC Glucose (mg/dL) 144 H 165 H (75-99) mg/dL Hemoglobin A1c (4.0-6.0) % Plasma Lactic Acid Joshua 5.1 H* (0.7-2.0) mmol/L AST (14-36) U/L ALT (9-52) U/L Total Protein (6.3-8.2) g/dL Albumin (3.5-5.0) g/dL 11/30/17 11/30/17 11/30/17 Range/Units 06:56 07:00 07:00 Hgb 9.9 L (11.4-16.0) gm/dL Hct 31.9 L (34.0-46.0) % Lymphocytes # 0.8 L (1.0-4.8) k/uL Potassium 3.4 L (3.5-5.1) mmol/L Chloride 109 H (98-107) mmol/L Glucose 140 H (74-99) mg/dL POC Glucose (mg/dL) 141 H (75-99) mg/dL Hemoglobin A1c (4.0-6.0) % Plasma Lactic Acid Joshua (0.7-2.0) mmol/L AST 47 H (14-36) U/L ALT 80 H (9-52) U/L Total Protein 5.4 L (6.3-8.2) g/dL Albumin 2.8 L (3.5-5.0) g/dL 11/30/17 11/30/17 11/30/17 Range/Units 07:00 11:05 11:45 Hgb (11.4-16.0) gm/dL Hct (34.0-46.0) % Lymphocytes # (1.0-4.8) k/uL Potassium (3.5-5.1) mmol/L Chloride (98-107) mmol/L Glucose (74-99) mg/dL POC Glucose (mg/dL) 212 H (75-99) mg/dL Hemoglobin A1c (4.0-6.0) % Plasma Lactic Acid Joshua 3.2 H* 5.7 H* (0.7-2.0) mmol/L AST (14-36) U/L ALT (9-52) U/L Total Protein (6.3-8.2) g/dL Albumin (3.5-5.0) g/dL Microbiology - Last 24 Hours (Table) 11/28/17 14:03 Blood Culture - Preliminary Blood No Growth after 24 hours Assessment and Plan Plan: Assessment -Bilateral patchy pneumonia with mild exacerbation of asthma in a patient who may have had influenza 7 or 10 days ago. Possibility of a superinfection with a bacterial pneumonia cannot be completely ruled out. Influenza screen was negative during this current admission. Patient and accommodation of Zosyn and vancomycin. The patient still has persistent poorly patchy infiltrates which are more conspicuous. Lactic acid level is also fluctuating and after he dropped, the patient lactic acid level is up to 5.7. -Multiple environmental ALLERGIES -Vitamin D deficiency -Hypertension -Diabetes mellitus -Gastroesophageal reflux disease -Previous history of hysterectomy and tonsillectomy -Lifelong nonsmoker. Plan Continue same treatment and consider bronchoscopy if no improvement in the patchy right the pulmonary infiltrates. Repeat chest x-ray in the morning. We will plan for bronchoscopy if no improvement. Monitor lactic acid levels.
[2017-11-30 17:07] LABS: Glucose,Whole Blood 223 mg/dL (75-99)
--- NOTE | 2017-11-30 19:53 | PN ---
PROGRESS NOTE DATE OF SERVICE: 11/30/2017. INTERVAL HISTORY: This 61-year-old woman who was admitted with acute bronchial asthma acute exacerbation bibasilar pneumonia. She also had features of sepsis. No chest pain. No palpitations. No fever. EXAM: Alert and oriented times three. Pulse 80, blood pressure 130/64, respiration 16, temperature is 97.4, pulse of 97% on 3 L. HEENT: Conjunctivae normal. Neck: No jugular venous distention. Cardiovascular: S1, S2 muffled. Respiratory: Breath sounds diminished at the bases. A few scattered rhonchi. No crackles and expiratory wheezing also present. Abdomen is soft, nontender. Legs are no edema, no swelling. Central nervous system: No focal deficits. LABS: Hemoglobin 9.9, and sodium 142, potassium 3.4. Plasma lactic acid 3.2 and 5.7. ASSESSMENT: 1. Acute bronchial asthma acute exacerbation with bibasilar pneumonia possibly gram- negative with sepsis present on admission. 2. Elevated lactic acid sepsis. 3. Increased AST/ALT possibly hepatitis secondary to pneumonia. 4. Asthma. 5. Diabetes type 2. 6. section. 7. History of hysterectomy. 8. History of tonsillectomy. RECOMMENDATIONS AND DISCUSSION: Recommend to continue current medication, continue with monitoring and symptomatic treatment. Otherwise at this time I would recommend continued antibiotics, IV fluids, closely follow with Pulmonary and Infectious Disease. Guarded prognosis. Further recommendations to follow. MMODL / IJN: [id number] /
[2017-11-30 20:01] LABS: Glucose,Whole Blood 230 mg/dL (75-99)
[2017-11-30] MEDS: INSULIN ASPART 100 UNIT/ML 1 ML 10 ML VIAL SQ SCH (21:12)
[2017-11-30] MEDS: LORATADINE 10 MG TAB PO SCH (21:13)
[2017-11-30] MEDS: LOSARTAN 25 MG TAB PO SCH (21:14)
[2017-11-30] MEDS: MONTELUKAST 10 MG TAB PO SCH (21:14)
--- NOTE | 2017-11-30 23:14 | PN ---
PROGRESS NOTE DATE OF SERVICE: 11/30/2017. REASON FOR FOLLOWUP VISIT: Pneumonia. INTERVAL HISTORY: The patient is afebrile. She is breathing slightly comfortably. She did have some cough and was bringing up some sputum. Was able to sputum sample. No chest pain. No nausea, vomiting. No abdominal pain, no diarrhea. EXAMINATION: Blood pressure 137/61 with a pulse of 84, temperature 97.7. She is 91% on room air. GENERAL DESCRIPTION: A middle-aged female up in the bed in no distress. RESPIRATORY SYSTEM: Unlabored breathing, decreased . No wheeze. HEART: S1, S2. Regular rate and rhythm. ABDOMEN: Soft, no tenderness. EXTREMITIES: No edema of the feet. LABS: Hemoglobin 9.1, white count 8.5. down to 4.4. Blood culture negative. Sputum is currently pending. DIAGNOSTIC IMPRESSION AND PLAN: Patient in the hospital with pneumonia, likely post influenza. Continue patient on Zosyn and vanc while waiting for the sputum cultures to finalize. Family present at bedside. Their questions were answered. MMODL / IJN: [id number] /
[2017-12-01] MEDS: PIPERACILLIN-TAZOBACTAM 3.375 GM in DEXTROSE/WATER 1 50ML.BAG IVPB SCH ×3 (01:56→19:03)
[2017-12-01] MEDS: 0.9% NACL WITH KCL 40 MEQ/L 1,000 ML IV SCH ×3 (03:03→23:45)
[2017-12-01] MEDS: methylPREDNISolone SOD SUCCI 125 MG/2 ML VIAL IV SCH ×4 (05:30→23:45)
[2017-12-01 06:56] LABS: Glucose,Whole Blood 276 mg/dL (75-99)
--- NOTE | 2017-12-01 07:20 | XR ---
EXAMINATION TYPE: XR chest 2V DATE OF EXAM: 12/01/2017 COMPARISON: 11/30/2017 TECHNIQUE: PA and lateral views submitted. HISTORY: Pneumonia FINDINGS: Bilateral areas of infiltrate stable. No sizable pleural effusion or pneumothorax. Heart size stable. IMPRESSION: 1. Diffuse bilateral areas of infiltrate are stable. May be on the basis of pneumonia. Follow resolut ion to exclude other etiologies including CHF or neoplasm.
[2017-12-01] MEDS: FORMOTEROL FUMARATE 20 MCG/2 ML NEBU INHALATION SCH ×2 (07:29→18:56)
[2017-12-01] MEDS: BUDESONIDE 1 MG/2 ML NEBU INHALATION SCH ×2 (07:29→18:56)
[2017-12-01] MEDS: IPRATROPIUM-ALBUTEROL 3 ML NEB INHALATION SCH ×4 (07:29→18:56)
[2017-12-01 07:30] LABS: Basophils % (A) 0 %; Eosinophils % (A) 0 %; HCT 31.8 % (34.0-46.0); HGB 9.8 gm/dL (11.4-16.0); Hypochromasia Slight; Lymphocytes # (A) 0.6 k/uL (1.0-4.8); Lymphocytes % (A) 10 %; MCH 24.6 pg (25.0-35.0); MCHC 30.7 g/dL (31.0-37.0); MCV 80.1 fL (80.0-100.0); Mean Platelet Volume 8.7; Monocytes # (A) 0.2 k/uL (0-1.0); Monocytes % (A) 3 %; Neutrophils # (A) 5.9 k/uL (1.3-7.7); Neutrophils % (A) 87 %; Platelet Count 216 k/uL (150-450); RBC 3.97 m/uL (3.80-5.40); RDW 14.9 % (11.5-15.5); WBC 6.8 k/uL (3.8-10.6)
[2017-12-01] MEDS: INSULIN ASPART 100 UNIT/ML 1 ML 10 ML VIAL SQ SCH ×4 (07:33→22:23)
[2017-12-01] MEDS: metFORMIN 500 MG TAB PO SCH ×2 (07:34→17:28)
[2017-12-01] MEDS: VANCOMYCIN 1,250 MG in SODIUM CHLORIDE 0.9% 250 ML IVPB SCH ×2 (07:34→16:26)
[2017-12-01] MEDS: PANTOPRAZOLE 40 MG TABLET PO SCH ×2 (07:34→17:28)
[2017-12-01] MEDS: MAGNESIUM OXIDE 400 MG TAB PO SCH (07:35)
[2017-12-01] MEDS: NICOTINE 14MG/24HR PATCH TRANSDERM SCH (07:35)
[2017-12-01] MEDS: FAMOTIDINE 20 MG TAB PO SCH ×2 (07:36→22:11)
[2017-12-01] MEDS: METOPROLOL SUCCINATE (ER) 50 MG TAB.ER.24H PO SCH (07:36)
[2017-12-01] MEDS: CLOBETASOL PROP 0.05% CR 15GM TOPICAL SCH ×2 (07:37→22:11)
[2017-12-01 07:58] LABS: ALT 75 U/L (9-52); AST 50 U/L (14-36); Albumin 2.9 g/dL (3.5-5.0); Alkaline Phosphatase 51 U/L (38-126); Anion Gap 13 mmol/L; Blood Urea Nitrogen 10 mg/dL (7-17); Calcium 8.7 mg/dL (8.4-10.2); Carbon Dioxide 19 mmol/L (22-30); Chloride 110 mmol/L (98-107); Glucose 241 mg/dL (74-99); Potassium 4.1 mmol/L (3.5-5.1); Sodium 142 mmol/L (137-145); Total Bilirubin 0.3 mg/dL (0.2-1.3); Total Protein 5.6 g/dL (6.3-8.2)
[2017-12-01 11:20] LABS: Glucose,Whole Blood 175 mg/dL (75-99)
--- NOTE | 2017-12-01 12:04 | P.PN ---
Subjective Progress Note Date: 12/01/17 61-year-old female patient is being seen in follow-up. The patient is a lifetime nonsmoker. She has history of bronchial asthma maintained on a combination of Dulera and Singulair on outpatient basis. She is also diabetic. She came in for pneumonia, asthma exacerbation and some mild leukocytosis. Her lactic acid level has been fluctuating still and a venous lactate was high as 6.1. After achieving it was a level of 3.2 at this noontime the lactic acid came back at 5.7. The patient is was resuscitated IV fluids. The patient is also covered with broad-spectrum antibiotics and currently the patient is receiving a combination of Zosyn and vancomycin. Renal function is within normal limits. The patient is taking metformin yet the patient did not take any contrast material. The patient has no leukocytosis and the white cell count is at 8.5. A follow-up chest x-ray was done today and the patient was found to have bilateral pneumonia and bilateral patchy airspace disease was noted some of which are more conspicuous. There is no evidence of any pleural effusion or pneumothorax. Patient remains on 2 L of oxygen nasal cannula and the pulse ox is around 96%. Vancomycin trough was 17.9 from today. 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 The patient check negative for influenza. On 12/01/2017 the patient is being seen in the follow-up. Systolic the same. The patient is still hypoxic on 3 L of oxygen by nasal cannula saturating on 90% . She is still having difficulties in breathing. Loose diarrhea. No fever or chills. A repeat chest x-ray was done today and it showed bilateral pulmonary infiltrates slightly worse compared to yesterday. Note that the patient's influenza screen was negative. Since admission the patient was kept on a combination of Zosyn and vancomycin. Cultures of been all negative. Note that the patient received also Rocephin on outpatient basis through her primary care physician. Based on all this, a CAT scan of the chest will be done with concentration a bronchoscopy in a.m. if no improvement and all worsening of the pulmonary infiltrates. The chest x-ray from today showed diffuse bilateral pulmonary infiltrates. This is most likely consistent with pneumonia. Objective - Vital Signs Vital signs: Vital Signs Temp 97.6 F 12/01/17 07:37 Pulse 80 12/01/17 11:48 Resp 18 12/01/17 07:37 BP 137/65 12/01/17 07:37 Pulse Ox 90 L 12/01/17 07:37 Intake & Output 11/30/17 12/01/17 12/01/17 18:59 06:59 18:59 Intake Total 1400 Balance 1400 Intake: Intake, IV Titration 950 Amount 0.9% NaCl with KCl 40 Meq 150 /l 1,000 ml @ 125 mls/hr IV .Q8H [facility] Rx#:[id number] Piperacillin-Tazobactam 3 50 .375 gm In Dextrose/Water 1 50ml.bag @ 12.5 mls/hr IVPB Q8H [facility] Rx#: [id number] Sodium Chloride 0.9% 500 500 ml @ 999 mls/hr IV .Q31M [facility] Rx#:[id number] Vancomycin 1,250 mg In 250 Sodium Chloride 0.9% 250 ml @ 125 mls/hr IVPB Q8HR [facility] Rx#:[id number] Oral 450 Other: Voiding Method Toilet Toilet Toilet # Voids 4 1 1 # Bowel Movements 1 1 - Exam No acute distress, oriented 3. HEENT examination is grossly unremarkable. Mucous membranes are moist. No oral lesions. Neck supple. Full range of motion. No adenopathy thyromegaly or neck vein distention. Cardiovascular examination reveals regular rhythm rate. S1-S2 normal. No S3 or S4. No discernible murmur noted. Lungs reveal few scattered rhonchi bilaterally. There is slight prolongation on forced maneuver. Some minimal high-pitched wheezes are noted. Breath sounds are equal bilaterally. Most adventitious lung sounds are noted in the left lung. Abdomen soft bowel sounds are heard. No masses or tenderness. Extremities are intact. No cyanosis clubbing or edema. Skin is without rash or lesion. Neurologic examination is brief but nonfocal. - Labs CBC & Chem 7: 12/01/17 07:04 12/01/17 07:04 Labs: Abnormal Lab Results - Last 24 Hours (Table) 11/30/17 11/30/17 11/30/17 Range/Units 11:45 17:06 17:30 Hgb (11.4-16.0) gm/dL Hct (34.0-46.0) % MCH (25.0-35.0) pg MCHC (31.0-37.0) g/dL Lymphocytes # (1.0-4.8) k/uL Chloride (98-107) mmol/L Carbon Dioxide (22-30) mmol/L Creatinine (0.52-1.04) mg/dL Glucose (74-99) mg/dL POC Glucose (mg/dL) 223 H (75-99) mg/dL Plasma Lactic Acid Joshua 5.7 H* 4.4 H* (0.7-2.0) mmol/L AST (14-36) U/L ALT (9-52) U/L Total Protein (6.3-8.2) g/dL Albumin (3.5-5.0) g/dL 11/30/17 11/30/17 12/01/17 Range/Units 19:59 21:21 06:54 Hgb (11.4-16.0) gm/dL Hct (34.0-46.0) % MCH (25.0-35.0) pg MCHC (31.0-37.0) g/dL Lymphocytes # (1.0-4.8) k/uL Chloride (98-107) mmol/L Carbon Dioxide (22-30) mmol/L Creatinine (0.52-1.04) mg/dL Glucose (74-99) mg/dL POC Glucose (mg/dL) 230 H 276 H (75-99) mg/dL Plasma Lactic Acid Joshua 6.9 H* (0.7-2.0) mmol/L AST (14-36) U/L ALT (9-52) U/L Total Protein (6.3-8.2) g/dL Albumin (3.5-5.0) g/dL 12/01/17 12/01/17 12/01/17 Range/Units 07:04 07:04 07:04 Hgb 9.8 L (11.4-16.0) gm/dL Hct 31.8 L (34.0-46.0) % MCH 24.6 L (25.0-35.0) pg MCHC 30.7 L (31.0-37.0) g/dL Lymphocytes # 0.6 L (1.0-4.8) k/uL Chloride 110 H (98-107) mmol/L Carbon Dioxide 19 L (22-30) mmol/L Creatinine 0.50 L (0.52-1.04) mg/dL Glucose 241 H (74-99) mg/dL POC Glucose (mg/dL) (75-99) mg/dL Plasma Lactic Acid Joshua 4.9 H* (0.7-2.0) mmol/L AST 50 H (14-36) U/L ALT 75 H (9-52) U/L Total Protein 5.6 L (6.3-8.2) g/dL Albumin 2.9 L (3.5-5.0) g/dL 12/01/17 12/01/17 Range/Units 11:18 11:18 Hgb (11.4-16.0) gm/dL Hct (34.0-46.0) % MCH (25.0-35.0) pg MCHC (31.0-37.0) g/dL Lymphocytes # (1.0-4.8) k/uL Chloride (98-107) mmol/L Carbon Dioxide (22-30) mmol/L Creatinine (0.52-1.04) mg/dL Glucose (74-99) mg/dL POC Glucose (mg/dL) 175 H (75-99) mg/dL Plasma Lactic Acid Joshua 6.5 H* (0.7-2.0) mmol/L AST (14-36) U/L ALT (9-52) U/L Total Protein (6.3-8.2) g/dL Albumin (3.5-5.0) g/dL Microbiology - Last 24 Hours (Table) 11/30/17 07:30 Gram Stain - Preliminary Sputum 11/28/17 14:03 Blood Culture - Preliminary Blood No Growth after 48 hours Assessment and Plan Plan: Assessment -Bilateral patchy pneumonia with mild exacerbation of asthma in a patient who may have had influenza 7 or 10 days ago. Possibility of a superinfection with a bacterial pneumonia cannot be completely ruled out. Influenza screen was negative during this current admission. Patient and accommodation of Zosyn and vancomycin. The patient still has persistent poorly patchy infiltrates which are more conspicuous. Lactic acid level is also fluctuating and after he dropped, the patient lactic acid level has been fluctuating in the most recent lactic acid level is down to 4.7. Nevertheless, despite hydration antibiotic treatment the patient lactic acid level never normalized. Rule out drug effect causing some degree of lactic acidosis. In any rate, the patient is still being treated with a combination of Zosyn and vancomycin on today's evaluation there is worsening of the bilateral pulmonary filtrates more so on the left. Will need a CAT scan of the chest with possible bronchoscopy in a.m. -Multiple environmental ALLERGIES -Vitamin D deficiency -Hypertension -Diabetes mellitus -Gastroesophageal reflux disease -Previous history of hysterectomy and tonsillectomy -Lifelong nonsmoker. Plan We'll proceed with a CAT scan of the chest. We'll proceed with a bronchoscopy in a.m. Continue same antibiotic coverage for now. Note that the patient was not covered for any atypical microbes. Would consider addition of Levaquin. Sent also Legionella urine antigen. We'll continue to follow. We'll monitor lactic acid levels.
[2017-12-01] MEDS: CHOLECALCIFEROL 1,000 UNIT TAB PO SCH (12:36)
--- NOTE | 2017-12-01 14:12 | CT ---
EXAMINATION TYPE: CT chest wo con DATE OF EXAM: 12/01/2017 COMPARISON: Chest x-ray same date HISTORY: Pneumonia-bilaterally CT DLP: 616 mGycm. Automated Exposure Control for Dose Reduction was Utilized. TECHNIQUE: CT scan of the thorax is performed without IV contrast. FINDINGS: Lack of contrast could compromise sensitivity. LUNGS: The lungs are remarkable for bilateral areas of groundglass opacity both peripherally, and the re is a peribronchial distribution in upper and lower lobes. Nodular density along the right hemidia phragm on axial image 34 may represent local consolidation rather than mass. There are small bilatera l pleural effusions, no pneumothorax seen. Some mild prominence of reticular densities noted towards the lung bases, interlobular septal lines. The tracheobronchial tree is patent. MEDIASTINUM: Lack of IV contrast is noted to limit evaluation for mediastinal and especially hilar ad enopathy. There are no definitive greater than 1 cm hilar or mediastinal lymph nodes. No cardiomega ly or pericardial effusion is seen. OTHER: Liver shows low attenuation possibly due to hepatic steatosis. Patient is post cholecystectomy . IMPRESSION: Consider cryptogenic organizing pneumonia, chronic eosinophilic pneumonia, alveolar prote inosis.
[2017-12-01 17:01] LABS: Glucose,Whole Blood 181 mg/dL (75-99)
--- NOTE | 2017-12-01 18:18 | PN ---
PROGRESS NOTE DATE OF SERVICE: 12/01/2017 This 61-year-old woman who was admitted with acute acute exacerbation also had bilateral pneumonia. The chest x-ray showed bilateral pneumonia. The lactic acid level is still elevated. CT scan showed possible cryptogenic organizing pneumonia or chronic eosinophilic pneumonia or alveolar proteinosis. Prominent reticular densities noted. Dr. Peraza is tentatively planning bronchoscopy. No chest pain. No palpitations. No fever. On exam, alert and oriented x3. Pulse 80, blood pressure 138/60, respiration 18, temperature 97.0, pulse ox 94% on 2 L. HEENT: Conjunctivae normal. NECK: No jugular venous distention. CARDIOVASCULAR SYSTEM: S1, S2 muffled. RESPIRATORY SYSTEM: Breath sounds diminished at the bases. A few scattered rhonchi and crackles. ABDOMEN: Soft, non-tender. No mass palpable. LEGS: No edema. No swelling. NERVOUS SYSTEM: No focal deficit. LABS: Hemoglobin 8.8, sodium 142, potassium 4.1, glucose 241. Albumin is 2.9. ASSESSMENT: 1. Acute bronchial asthma, acute exacerbation, with possible bibasilar pneumonia , possibly Gram-negative with sepsis, present on admission. 2. Elevated lactic acid and sepsis. 3. Rule out alveolar proteinosis and other interstitial opacities causing opacities. 4. Increased AST, ALT, possibly hepatitis secondary to pneumonia. 5. Asthma. 6. Diabetes mellitus, type 2. 7. section. 8. History of hysterectomy. 9. History of tonsillectomy. RECOMMENDATIONS AND DISCUSSION: I recommend to continue current medication, continue symptomatic treatment. Otherwise at this time I would recommend continuing with the broad-spectrum IV antibiotics , bronchodilators, steroids and closely follow with Dr. Peraza. Possible bronchoscopy. Further recommendations to follow. MMODL / IJN: [id number] / MTDD
[2017-12-01 19:50] LABS: Glucose,Whole Blood 237 mg/dL (75-99)
[2017-12-01 20:02] LABS: Appearance,Urine Clear (Clear); Bilirubin,Urine Negative (Negative); Blood,Urine Negative (Negative); Color,Urine Light Yellow; Glucose,Urine (UA) Trace (Negative); Ketones,Urine Negative (Negative); Leukocyte Esterase,Urine Negative (Negative); Nitrite,Urine Negative (Negative); Protein,Urine Negative (Negative); Urobilinogen,Urine <2.0 mg/dL (<2.0)
--- NOTE | 2017-12-01 21:24 | PN ---
PROGRESS NOTE DATE OF SERVICE: 12/01/2017 REASON FOR FOLLOWUP: Pneumonia. INTERVAL HISTORY: The patient is afebrile. She seems to be breathing slightly more comfortably today. No nausea. No vomiting. Cough is less productive. No chest pain. No abdominal pain. No diarrhea. PHYSICAL EXAMINATION: Blood pressure is 132/63 with a pulse of 80, temperature 97.1. She is 95% on 2 L nasal cannula. General description is a middle-aged female lying in bed in no distress. RESPIRATORY SYSTEM: Unlabored breathing. Decreased intensity of breath sounds. No wheeze. HEART: S1, S2. Regular rate and rhythm. ABDOMEN: Soft. No tenderness. EXTREMITIES: No edema of the feet. LABS: Hemoglobin 9.8, white count of 6.8. BUN of 10, creatinine 0.50. Sputum with Jenise albicans. Blood culture negative so far. DIAGNOSTIC IMPRESSION AND PLAN: Patient with shortness of breath, multifactorial, with a component of possible pneumonia with CT suggestive of cryptogenic organizing pneumonia as well as pneumonitis. Sputum with jenise. Currently on Zosyn, Solu-Medrol and vancomycin. As no resistant organism has been grown, discontinue the vancomycin. Continue with supportive care. MMODL / IJN: [id number] /
[2017-12-01] MEDS: MONTELUKAST 10 MG TAB PO SCH (22:11)
[2017-12-01] MEDS: LORATADINE 10 MG TAB PO SCH (22:11)
[2017-12-01] MEDS: LOSARTAN 25 MG TAB PO SCH (22:12)
[2017-12-02] MEDS: PIPERACILLIN-TAZOBACTAM 3.375 GM in DEXTROSE/WATER 1 50ML.BAG IVPB SCH ×3 (02:31→19:03)
[2017-12-02] MEDS: 0.9% NACL WITH KCL 40 MEQ/L 1,000 ML IV SCH (05:44)
[2017-12-02] MEDS: methylPREDNISolone SOD SUCCI 125 MG/2 ML VIAL IV SCH ×3 (06:02→17:49)
[2017-12-02] MEDS ORDERED: FUROSEMIDE 10 MG/ML 4 ML VIAL IV STA (06:26)
[2017-12-02 07:11] LABS: Glucose,Whole Blood 198 mg/dL (75-99)
[2017-12-02] MEDS: FORMOTEROL FUMARATE 20 MCG/2 ML NEBU INHALATION SCH ×2 (07:22→20:23)
[2017-12-02] MEDS: BUDESONIDE 1 MG/2 ML NEBU INHALATION SCH ×2 (07:22→20:23)
[2017-12-02] MEDS: IPRATROPIUM-ALBUTEROL 3 ML NEB INHALATION SCH ×4 (07:22→20:23)
[2017-12-02] MEDS: FAMOTIDINE 20 MG TAB PO SCH ×2 (08:12→20:33)
[2017-12-02] MEDS: PANTOPRAZOLE 40 MG TABLET PO SCH ×2 (08:12→17:49)
[2017-12-02] MEDS: metFORMIN 500 MG TAB PO SCH ×2 (08:12→17:49)
[2017-12-02] MEDS: INSULIN ASPART 100 UNIT/ML 1 ML 10 ML VIAL SQ SCH ×4 (08:12→20:33)
[2017-12-02] MEDS: NICOTINE 14MG/24HR PATCH TRANSDERM SCH (08:12)
[2017-12-02] MEDS: METOPROLOL SUCCINATE (ER) 50 MG TAB.ER.24H PO SCH (08:13)
[2017-12-02] MEDS: MAGNESIUM OXIDE 400 MG TAB PO SCH (08:13)
[2017-12-02] MEDS: CLOBETASOL PROP 0.05% CR 15GM TOPICAL SCH ×2 (08:14→20:34)
[2017-12-02 08:58] LABS: Basophils % (A) 0 %; Eosinophils % (A) 0 %; HCT 34.1 % (34.0-46.0); Lymphocytes # (A) 0.8 k/uL (1.0-4.8); Lymphocytes % (A) 9 %; MCH 25.1 pg (25.0-35.0); MCHC 32.2 g/dL (31.0-37.0); Mean Platelet Volume 8.4; Monocytes # (A) 0.3 k/uL (0-1.0); Monocytes % (A) 3 %; Neutrophils # (A) 8.3 k/uL (1.3-7.7); Neutrophils % (A) 88 %; Platelet Count 249 k/uL (150-450); RBC 4.37 m/uL (3.80-5.40); RDW 14.9 % (11.5-15.5); WBC 9.4 k/uL (3.8-10.6)
[2017-12-02 09:18] LABS: ALT 96 U/L (9-52); AST 64 U/L (14-36); Albumin 3.6 g/dL (3.5-5.0); Alkaline Phosphatase 62 U/L (38-126); Anion Gap 12 mmol/L; Blood Urea Nitrogen 11 mg/dL (7-17); Calcium 9.3 mg/dL (8.4-10.2); Carbon Dioxide 25 mmol/L (22-30); Chloride 103 mmol/L (98-107); Glucose 218 mg/dL (74-99); Potassium 3.9 mmol/L (3.5-5.1); Sodium 140 mmol/L (137-145); Total Bilirubin 0.7 mg/dL (0.2-1.3); Total Protein 6.4 g/dL (6.3-8.2)
[2017-12-02 11:08] LABS: Glucose,Whole Blood 218 mg/dL (75-99)
[2017-12-02] MEDS ORDERED: LIDOCAINE 2% INJ 20 MG/ML INTRATRACH ONE ×2 (11:44→12:48)
[2017-12-02] MEDS: CHOLECALCIFEROL 1,000 UNIT TAB PO SCH (11:59)
[2017-12-02] MEDS ORDERED: IV FLUID CONTINUATION 500 ML IV ONE ×2 (12:04)
[2017-12-02] MEDS ORDERED: LIDOCAINE 1% INJ 10MG/ML (20 ML MDV) ONE (12:10)
[2017-12-02] MEDS ORDERED: KETAMINE 10 MG/ML 20 ML VIAL ONE (12:10)
[2017-12-02] MEDS ORDERED: GLYCOPYRROLATE 0.2 MG/ML 2 ML VIAL ONE (12:10)
--- NOTE | 2017-12-02 12:59 | P.PN ---
Subjective Progress Note Date: 12/02/17 61-year-old female patient is being seen in follow-up. The patient is a lifetime nonsmoker. She has history of bronchial asthma maintained on a combination of Dulera and Singulair on outpatient basis. She is also diabetic. She came in for pneumonia, asthma exacerbation and some mild leukocytosis. Her lactic acid level has been fluctuating still and a venous lactate was high as 6.1. After achieving it was a level of 3.2 at this noontime the lactic acid came back at 5.7. The patient is was resuscitated IV fluids. The patient is also covered with broad-spectrum antibiotics and currently the patient is receiving a combination of Zosyn and vancomycin. Renal function is within normal limits. The patient is taking metformin yet the patient did not take any contrast material. The patient has no leukocytosis and the white cell count is at 8.5. A follow-up chest x-ray was done today and the patient was found to have bilateral pneumonia and bilateral patchy airspace disease was noted some of which are more conspicuous. There is no evidence of any pleural effusion or pneumothorax. Patient remains on 2 L of oxygen nasal cannula and the pulse ox is around 96%. Vancomycin trough was 17.9 from today. 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 The patient check negative for influenza. On 12/01/2017 the patient is being seen in the follow-up. Systolic the same. The patient is still hypoxic on 3 L of oxygen by nasal cannula saturating on 90% . She is still having difficulties in breathing. Loose diarrhea. No fever or chills. A repeat chest x-ray was done today and it showed bilateral pulmonary infiltrates slightly worse compared to yesterday. Note that the patient's influenza screen was negative. Since admission the patient was kept on a combination of Zosyn and vancomycin. Cultures of been all negative. Note that the patient received also Rocephin on outpatient basis through her primary care physician. Based on all this, a CAT scan of the chest will be done with concentration a bronchoscopy in a.m. if no improvement and all worsening of the pulmonary infiltrates. The chest x-ray from today showed diffuse bilateral pulmonary infiltrates. This is most likely consistent with pneumonia. On 12/02/2017 of seeing this patient for a follow-up. The patient is being treated for multilobar pneumonia. I was concerned that the patient was not showing the signs of improvement that she is supposed to get with broad- spectrum antibiotic coverage. Based on that, I performed a CAT scan of the chest that was completed yesterday showed multilobar pneumonia with more involvement of the left upper lobe in the lingular segment and to lesser extent in the lower lobes bilaterally. Based on this, and based on her ongoing hypoxemia and respiratory distress, I planned to proceed with a bronchoscopy and obtain a lavage from the left lung to establish an microbial diagnosis. The patient is on Zosyn and vancomycin. Levaquin will be added. The patient is also on IV Solu-Medrol. The patient was seen preoperatively of the bronchoscopy suite. The patient was on 3 L of oxygen by nasal cannula. The patient was completed and the patient will be moved back to the medical floor. An infection disease consultation will be also obtained. She is hemodynamically stable at this point. An echocardiogram was also added. A dose of Lasix was also given to the patient yesterday. She is having progressive worsening shortness of breath Objective - Vital Signs Vital signs: Vital Signs Temp 97.5 F L 12/02/17 08:27 Pulse 80 12/02/17 11:37 Resp 20 12/02/17 07:08 BP 145/85 12/02/17 07:08 Pulse Ox 92 L 12/02/17 07:08 Intake & Output 12/01/17 12/02/17 12/02/17 18:59 06:59 18:59 Intake Total 1300 1425 Balance 1300 1425 Intake: IV 1125 0.9% NaCl with KCl 40 Meq 1125 /l 1,000 ml @ 125 mls/hr IV .Q8H VAUGHN Rx#:[id number] Intake, IV Titration 1300 100 Amount 0.9% NaCl with KCl 40 Meq 1000 /l 1,000 ml @ 125 mls/hr IV .Q8H VAUGHN Rx#:[id number] Piperacillin-Tazobactam 3 50 100 .375 gm In Dextrose/Water 1 50ml.bag @ 12.5 mls/hr IVPB Q8H VAUGHN Rx#: [id number] Vancomycin 1,250 mg In 250 Sodium Chloride 0.9% 250 ml @ 125 mls/hr IVPB Q8HR VAUGHN Rx#:[id number] Oral 200 Other: Voiding Method Toilet Toilet Toilet # Voids 4 1 # Bowel Movements 1 1 - Exam No acute distress, oriented 3. HEENT examination is grossly unremarkable. Mucous membranes are moist. No oral lesions. Neck supple. Full range of motion. No adenopathy thyromegaly or neck vein distention. Cardiovascular examination reveals regular rhythm rate. S1-S2 normal. No S3 or S4. No discernible murmur noted. Lungs reveal few scattered rhonchi bilaterally. There is slight prolongation on forced maneuver. Some minimal high-pitched wheezes are noted. Breath sounds are equal bilaterally. Most adventitious lung sounds are noted in the left lung. Abdomen soft bowel sounds are heard. No masses or tenderness. Extremities are intact. No cyanosis clubbing or edema. Skin is without rash or lesion. Neurologic examination is brief but nonfocal. - Labs CBC & Chem 7: 12/02/17 08:07 12/02/17 08:07 Labs: Abnormal Lab Results - Last 24 Hours (Table) 12/01/17 12/01/17 12/01/17 Range/Units 16:59 19:27 19:48 Hgb (11.4-16.0) gm/dL MCV (80.0-100.0) fL Neutrophils # (1.3-7.7) k/uL Lymphocytes # (1.0-4.8) k/uL Glucose (74-99) mg/dL POC Glucose (mg/dL) 181 H 237 H (75-99) mg/dL Plasma Lactic Acid Joshua (0.7-2.0) mmol/L AST (14-36) U/L ALT (9-52) U/L Urine Glucose (UA) Trace H (Negative) 12/02/17 12/02/17 12/02/17 Range/Units 07:10 08:07 08:07 Hgb 11.0 L (11.4-16.0) gm/dL MCV 78.0 L (80.0-100.0) fL Neutrophils # 8.3 H (1.3-7.7) k/uL Lymphocytes # 0.8 L (1.0-4.8) k/uL Glucose 218 H (74-99) mg/dL POC Glucose (mg/dL) 198 H (75-99) mg/dL Plasma Lactic Acid Joshua (0.7-2.0) mmol/L AST 64 H (14-36) U/L ALT 96 H (9-52) U/L Urine Glucose (UA) (Negative) 12/02/17 12/02/17 Range/Units 11:07 11:40 Hgb (11.4-16.0) gm/dL MCV (80.0-100.0) fL Neutrophils # (1.3-7.7) k/uL Lymphocytes # (1.0-4.8) k/uL Glucose (74-99) mg/dL POC Glucose (mg/dL) 218 H (75-99) mg/dL Plasma Lactic Acid Joshua 2.9 H* (0.7-2.0) mmol/L AST (14-36) U/L ALT (9-52) U/L Urine Glucose (UA) (Negative) Microbiology - Last 24 Hours (Table) 11/30/17 07:30 Gram Stain - Final Sputum Sputum Culture - Final Jenise albicans 11/28/17 14:03 Blood Culture - Preliminary Blood No Growth after 72 hours Assessment and Plan Plan: Assessment -Bilateral patchy pneumonia with mild exacerbation of asthma in a patient who may have had influenza 7 or 10 days ago. Possibility of a superinfection with a bacterial pneumonia cannot be completely ruled out. Influenza screen was negative during this current admission. Patient and accommodation of Zosyn and vancomycin. The patient still has persistent poorly patchy infiltrates which are more conspicuous. Lactic acid level is also fluctuating and after he dropped, the patient lactic acid level has been fluctuating in the most recent lactic acid level is down to 4.7. Nevertheless, despite hydration antibiotic treatment the patient lactic acid level never normalized. Rule out drug effect causing some degree of lactic acidosis. In any rate, the patient is still being treated with a combination of Zosyn and vancomycin on today's evaluation there is worsening of the bilateral pulmonary filtrates more so on the left. Will need a CAT scan of the chest with possible bronchoscopy in a.m. On 12/03/2007 and I'm seeing this patient for a follow-up. There is extensive bilateral pulmonary infiltrates with groundglass infiltration and some patchy infiltration with peribronchial distribution in the upper and lower lobes more so on the left. The patient underwent a bronchoscopy today and the bronchial lavage of the lingula was obtained. Unable to do the biopsy and the patient was quite unstable and she would desaturate easily under conscious sedation. The patient completed the procedure without any complication. Levaquin will be added to broaden antibiotic coverage. -Multiple environmental ALLERGIES -Vitamin D deficiency -Hypertension -Diabetes mellitus -Gastroesophageal reflux disease -Previous history of hysterectomy and tonsillectomy -Lifelong nonsmoker. Plan The patient underwent the procedure. Postprocedure she was placed on 6 L of oxygen by nasal cannula to maintain a saturation above 90%. The patient will be kept on the same antibiotic coverage. Levaquin will be added. Continue IV Solu-Medrol. Continue bronchodilators. Mode this patient to selective with telemetry with the intention of possibly moving into intensive care unit if her condition remains unchanged and oriented there is any worsening. Meanwhile, the lactic acid level has dropped down to 2.9 and the patient does not have any significant leukocytosis. Echocardiogram is still pending. We'll continue to follow.
[2017-12-02] MEDS ORDERED: LEVOFLOXACIN 750MG-D5W PMX 750 MG in DEXTROSE/WATER 1 150ML.BAG IVPB SCH (13:00)
--- NOTE | 2017-12-02 13:05 | P.PCN ---
Date of Procedure: 12/02/17 Preoperative Diagnosis: Bilateral pneumonia, acute hypoxic respiratory failure Postoperative Diagnosis: Acute hypoxic respiratory failure, bilateral pneumonia Procedure(s) Performed: bronchoscopy, BAL Anesthesia: INDIRA Surgeon: Soy Peraza Estimated Blood Loss (ml): 0 Pathology: none sent Condition: other Disposition: PACU Operative Findings: The patient was brought into the bronchoscopy suite. Preoperatively, the patient wasn't liters of oxygen on nasal cannula and she was saturating around 90-91%. The patient was not using his muscles of breathing. She was awake and alert. The patient was given a total of 20 mg of ketamine dropped down to 80%. I was able to provide that a high flow oxygen through nasal cannula in addition to a facemask. After waking 4 on 2 minutes, pulse ox came up to 90-91% . At that point, I proceeded with a bronchoscopy and a very rapid fashion and the procedure took less than the minutes. I was easily able to pass the bronchoscope through the left nostril and passed pharynx and larynx and quick examination of the vocal cords was done and 1% lidocaine was applied a total of 2 MIs and following that I intubated this patient and move the bronchoscope to the superior segment of the lingula with a quick bronchioloalveolar lavage was done. A total of 80 amount of fluid was infused and 25-30 mL infection back. Unable to complete the examination as I was concerned that the patient would desaturate as the patient WAS dropping again her pulse oximeter down to 88% range and she was becoming progressively more tachycardic. A quick therapeutic airway suctioning was done. The visualized airways into the trachea back and mainstem bronchi the various segments of the upper and lower lobes bilaterally and all of these airways were patent. No mucous plugging was identified. Underlying bronchial mucosa was somewhat inflamed and erythematous. Bronchoscope was removed. Following that the patient was kept on [address] simple facemask. Her heart rate today is rate 120. I think she is settling down. We'll observe for another 30 minutes and is stable she can go back to the medical floor. Otherwise I'll take her to a monitored bed in the intensive care unit. We will update the family on her condition. The bronchial lavage will be sent for microbial analysis.
[2017-12-02 16:23] LABS: Appearance,BF Bloody; Nucleated Cells, Body Fluid 125 /uL; RBC, Body Fluid 19650 /uL
[2017-12-02 16:24] LABS: Mononuclear WBC,Body Fluid 94 %; Polynuclear WBC,Body Fluid 6 %; Total Cells Counted,Body Fluid 100
--- NOTE | 2017-12-02 17:07 | ECHOF ---
Referral Reason:CHF MEASUREMENTS -------- HEIGHT: 162.6 cm WEIGHT: 70.3 kg BP: 137/65 RVIDd: 2.6 cm (< 3.3) IVSd: 1.0 cm (0.6 - 1.1) LVIDd: 4.1 cm (3.9 - 5.3) LVPWd: 0.9 cm (0.6 - 1.1) IVSs: 1.5 cm LVIDs: 2.7 cm LVPWs: 1.6 cm LA Diam: 3.1 cm (2.7 - 3.8) LAESV Index (A-L): 26.37 ml/m Ao Diam: 2.7 cm (2.0 - 3.7) AV Cusp: 1.8 cm (1.5 - 2.6) MV EXCURSION: 15.510 mm (> 18.000) MV EF SLOPE: 174 mm/s (70 - 150) EPSS: 0.5 cm MV E Guillermo: 1.28 m/s MV DecT: 114 ms MV A Guillermo: 0.99 m/s MV E/A Ratio: 1.29 RAP: 5.00 mmHg RVSP: 35.69 mmHg FINDINGS -------- Sinus rhythm. This was a technically good study. The left ventricular size is normal. Left ventricular wall thickness is normal. Overall left vent ricular systolic function is normal with, an EF between 60 - 65 %. The right ventricle is normal in size. Normal LA size by volume 22+/-6 ml/m2. The right atrium is normal in size. The aortic valve is trileaflet and appears structurally normal. Mild mitral annular calcification present. Mild mitral regurgitation is present. Mild tricuspid regurgitation present. There is mild pulmonary hypertension. The right ventricular systolic pressure, as measured by Doppler, is 35.69mmHg. There is no pulmonic regurgitation present. The aortic root size is normal. Normal inferior vena cava with normal inspiratory collapse consistent with estimated right atrial pre ssure of 5 mmHg. The inferior vena cava is mildly dilated. There is no pericardial effusion. CONCLUSIONS -------- 1. Sinus rhythm. 2. This was a technically good study. 3. The left ventricular size is normal. 4. Left ventricular wall thickness is normal. 5. Overall left ventricular systolic function is normal with, an EF between 60 - 65 %. 6. The right ventricle is normal in size. 7. Normal LA size by volume 22+/-6 ml/m2. 8. The right atrium is normal in size. 9. The aortic valve is trileaflet and appears structurally normal. 10. Mild mitral annular calcification present. 11. Mild mitral regurgitation is present. 12. Mild tricuspid regurgitation present. 13. There is mild pulmonary hypertension. 14. The right ventricular systolic pressure, as measured by Doppler, is 35.69mmHg. 15. There is no pulmonic regurgitation present. 16. The aortic root size is normal. 17. Normal inferior vena cava with normal inspiratory collapse consistent with estimated right atrial pressure of 5 mmHg. 18. The inferior vena cava is mildly dilated. 19. There is no pericardial effusion. SHOP BLACKSMITH: Hiral Fragoso RDCS
[2017-12-02 17:14] LABS: Glucose,Whole Blood 194 mg/dL (75-99)
[2017-12-02 20:00] LABS: Glucose,Whole Blood 201 mg/dL (75-99)
[2017-12-02] MEDS: MONTELUKAST 10 MG TAB PO SCH (20:33)
[2017-12-02] MEDS: LORATADINE 10 MG TAB PO SCH (20:33)
[2017-12-02] MEDS: LOSARTAN 25 MG TAB PO SCH (20:33)
--- NOTE | 2017-12-02 20:49 | PN ---
PROGRESS NOTE DATE OF SERVICE: 12/02/2017 This 61-year-old woman was admitted with bilateral pneumonia, is improving. The patient also had hypoxic respiratory failure. Patient underwent a bronchoscopy and a BAL by Dr. Peraza to rule out other etiologies. No chest pain. No palpitation. EXAM: Alert and oriented x3. Pulse 101, blood pressure 130/60, respirations 16, temperature normal, pulse ox 100% on 3L. HEENT: Conjunctivae normal. NECK: No jugular venous distention. CARDIOVASCULAR: S1, S2 muffled. RESPIRATORY: Breath sounds diminished in the bases. A few scattered rhonchi. No crackles. ABDOMEN: Soft. LEGS: No edema. NERVOUS SYSTEM: No focal deficits. LABS: WBC 9, hemoglobin is 11 and glucose is 218. ASSESSMENT: 1. Acute bronchial asthma acute exacerbation with possible bibasilar pneumonia, possibly gram-negative sepsis, present on admission. 2. Elevated lactic acid and sepsis. 3. Status post bronchoscopy. 4. Increased AST, ALT possibly hepatitis secondary to pneumonia. 5. Asthma. 6. Diabetes mellitus type 2. 7. History of section. 8. History of hysterectomy. 9. History of tonsillectomy. RECOMMENDATIONS AND DISCUSSION: I recommend continuing current medical management and symptomatic treatment. Otherwise at this time, I recommend continuing the antibiotics, steroids and . Otherwise, continue to follow with Dr. Peraza. The ejection fraction was found to be 60% -65% on 2D echo. Further recommendations to follow. MMODL / IJN: [id number] / MTDD
--- NOTE | 2017-12-02 22:49 | PN ---
PROGRESS NOTE DATE OF SERVICE: 12/02/2017. REASON FOR FOLLOWUP: Pneumonia. INTERVAL HISTORY: The patient is afebrile. She was seen on rounds this morning. The patient waiting for her bronch to be done this afternoon. The patient remains symptom being shortness of breath. Minimal exertion. She did have some cough which is dry in nature. No nausea, vomiting, abdominal pain, no diarrhea. EXAMINATION: Blood pressure 133/68 with a pulse of 84, temperature of 98. She is 100% on 3 L nasal cannula. General description is an elderly female up in the bed in no distress. Respiratory system: Unlabored breathing with decreased breath sounds at the bases. No wheeze. Heart S1, S2 regular rate and rhythm. Abdomen soft, no tenderness. LABS: Lactic acid 1.9. Sputum with Jenise albicans. Bronch culture currently pending. DIAGNOSTIC IMPRESSION AND PLAN: Patient with pneumonia failing outpatient Zithromax and Levaquin currently on Zosyn and Levaquin today. Waiting for the bronch culture to finalize to adjust medication further if needed. Continue supportive care. MMODL / IJN: [id number] /
[2017-12-03] MEDS: methylPREDNISolone SOD SUCCI 125 MG/2 ML VIAL IV SCH ×5 (00:21→23:19)
[2017-12-03] MEDS: hydrOXYzine HCL 25 MG TAB PO PRN ×2 (01:19→21:25)
[2017-12-03] MEDS: PIPERACILLIN-TAZOBACTAM 3.375 GM in DEXTROSE/WATER 1 50ML.BAG IVPB SCH ×3 (02:23→17:28)
[2017-12-03] MEDS: FORMOTEROL FUMARATE 20 MCG/2 ML NEBU INHALATION SCH ×2 (06:55→19:32)
[2017-12-03] MEDS: BUDESONIDE 1 MG/2 ML NEBU INHALATION SCH ×2 (06:55→19:32)
[2017-12-03] MEDS: IPRATROPIUM-ALBUTEROL 3 ML NEB INHALATION SCH ×4 (06:55→19:32)
[2017-12-03 07:13] LABS: Glucose,Whole Blood 231 mg/dL (75-99)
[2017-12-03 07:43] LABS: Basophils % (A) 0 %; Eosinophils % (A) 0 %; HCT 33.5 % (34.0-46.0); HGB 11.1 gm/dL (11.4-16.0); Lymphocytes # (A) 0.7 k/uL (1.0-4.8); Lymphocytes % (A) 9 %; MCH 26.1 pg (25.0-35.0); MCHC 33.1 g/dL (31.0-37.0); MCV 78.9 fL (80.0-100.0); Mean Platelet Volume 7.9; Monocytes # (A) 0.3 k/uL (0-1.0); Monocytes % (A) 4 %; Neutrophils # (A) 7.1 k/uL (1.3-7.7); Neutrophils % (A) 86 %; Platelet Count 226 k/uL (150-450); RBC 4.25 m/uL (3.80-5.40); RDW 14.5 % (11.5-15.5); WBC 8.3 k/uL (3.8-10.6)
[2017-12-03] MEDS: INSULIN ASPART 100 UNIT/ML 1 ML 10 ML VIAL SQ SCH ×4 (07:53→21:24)
[2017-12-03] MEDS: metFORMIN 500 MG TAB PO SCH ×2 (08:00→17:23)
[2017-12-03] MEDS: FAMOTIDINE 20 MG TAB PO SCH ×2 (08:00→20:01)
[2017-12-03] MEDS: PANTOPRAZOLE 40 MG TABLET PO SCH ×2 (08:00→17:24)
[2017-12-03] MEDS: METOPROLOL SUCCINATE (ER) 50 MG TAB.ER.24H PO SCH (08:01)
[2017-12-03] MEDS: NICOTINE 14MG/24HR PATCH TRANSDERM SCH (08:01)
[2017-12-03] MEDS: CLOBETASOL PROP 0.05% CR 15GM TOPICAL SCH ×2 (08:01→19:58)
[2017-12-03] MEDS: MAGNESIUM OXIDE 400 MG TAB PO SCH (08:01)
[2017-12-03 08:02] LABS: Albumin 3.1 g/dL (3.5-5.0); Anion Gap 10 mmol/L; Calcium 8.6 mg/dL (8.4-10.2); Carbon Dioxide 25 mmol/L (22-30); Chloride 102 mmol/L (98-107); Glucose 223 mg/dL (74-99); Sodium 137 mmol/L (137-145); Total Bilirubin 0.8 mg/dL (0.2-1.3); Total Protein 5.7 g/dL (6.3-8.2)
[2017-12-03 08:09] LABS: ALT 105 U/L (9-52); AST 72 U/L (14-36); Alkaline Phosphatase 46 U/L (38-126); Blood Urea Nitrogen 11 mg/dL (7-17); Potassium 3.9 mmol/L (3.5-5.1)
[2017-12-03 11:03] LABS: Glucose,Whole Blood 194 mg/dL (75-99)
[2017-12-03] MEDS: CHOLECALCIFEROL 1,000 UNIT TAB PO SCH (12:39)
--- NOTE | 2017-12-03 15:12 | P.PN ---
Subjective Progress Note Date: 12/03/17 61-year-old female patient is being seen in follow-up. The patient is a lifetime nonsmoker. She has history of bronchial asthma maintained on a combination of Dulera and Singulair on outpatient basis. She is also diabetic. She came in for pneumonia, asthma exacerbation and some mild leukocytosis. Her lactic acid level has been fluctuating still and a venous lactate was high as 6.1. After achieving it was a level of 3.2 at this noontime the lactic acid came back at 5.7. The patient is was resuscitated IV fluids. The patient is also covered with broad-spectrum antibiotics and currently the patient is receiving a combination of Zosyn and vancomycin. Renal function is within normal limits. The patient is taking metformin yet the patient did not take any contrast material. The patient has no leukocytosis and the white cell count is at 8.5. A follow-up chest x-ray was done today and the patient was found to have bilateral pneumonia and bilateral patchy airspace disease was noted some of which are more conspicuous. There is no evidence of any pleural effusion or pneumothorax. Patient remains on 2 L of oxygen nasal cannula and the pulse ox is around 96%. Vancomycin trough was 17.9 from today. 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 The patient check negative for influenza. On 12/01/2017 the patient is being seen in the follow-up. Systolic the same. The patient is still hypoxic on 3 L of oxygen by nasal cannula saturating on 90% . She is still having difficulties in breathing. Loose diarrhea. No fever or chills. A repeat chest x-ray was done today and it showed bilateral pulmonary infiltrates slightly worse compared to yesterday. Note that the patient's influenza screen was negative. Since admission the patient was kept on a combination of Zosyn and vancomycin. Cultures of been all negative. Note that the patient received also Rocephin on outpatient basis through her primary care physician. Based on all this, a CAT scan of the chest will be done with concentration a bronchoscopy in a.m. if no improvement and all worsening of the pulmonary infiltrates. The chest x-ray from today showed diffuse bilateral pulmonary infiltrates. This is most likely consistent with pneumonia. On 12/02/2017 of seeing this patient for a follow-up. The patient is being treated for multilobar pneumonia. I was concerned that the patient was not showing the signs of improvement that she is supposed to get with broad- spectrum antibiotic coverage. Based on that, I performed a CAT scan of the chest that was completed yesterday showed multilobar pneumonia with more involvement of the left upper lobe in the lingular segment and to lesser extent in the lower lobes bilaterally. Based on this, and based on her ongoing hypoxemia and respiratory distress, I planned to proceed with a bronchoscopy and obtain a lavage from the left lung to establish an microbial diagnosis. The patient is on Zosyn and vancomycin. Levaquin will be added. The patient is also on IV Solu-Medrol. The patient was seen preoperatively of the bronchoscopy suite. The patient was on 3 L of oxygen by nasal cannula. The patient was completed and the patient will be moved back to the medical floor. An infection disease consultation will be also obtained. She is hemodynamically stable at this point. An echocardiogram was also added. A dose of Lasix was also given to the patient yesterday. She is having progressive worsening shortness of breath. On 12/04/2007 and I'm seeing this patient for a follow-up. The patient is being treated for multilobar pneumonia and she is currently on a broad-spectrum antibiotics including a combination of Levaquin and Zosyn and vancomycin. The patient underwent a bronchoscopy yesterday and the bronchioloalveolar lavage is still pending for now. The patient is feeling much better on today's evaluation. She is less short of breath. She is breathing easier. Chest is less tight. There has been improvement in them will to continue same treatment pending the follow-up chest x-ray and pending the results of the bronchioloalveolar lavage. No nausea. No vomiting. No diarrhea. No abdominal pain. She is on systemic steroids. She is afebrile for now. Pulse ox is 92% liters of oxygen by nasal cannula. White cell count is not elevated. The lactic acid level finally dropped down to 1.9. The cell count from the bronchioloalveolar lavage showed mononuclear predominance. Objective - Vital Signs Vital signs: Vital Signs Temp 97.6 F 12/03/17 14:50 Pulse 95 12/03/17 14:50 Resp 18 12/03/17 14:50 BP 120/59 12/03/17 14:50 Pulse Ox 92 L 12/03/17 14:50 Intake & Output 0312/03/17 12/03/17 18:59 06:59 18:59 Intake Total 125 50 50 Balance 125 50 50 Intake: IV 75 Intake, IV Titration 50 50 50 Amount Piperacillin-Tazobactam 3 50 50 50 .375 gm In Dextrose/Water 1 50ml.bag @ 12.5 mls/hr IVPB Q8H COUNT INCLUDES THE [facility] Rx#: [id number] Other: Voiding Method Toilet Toilet Toilet # Voids 3 1 - Exam No acute distress, oriented 3. HEENT examination is grossly unremarkable. Mucous membranes are moist. No oral lesions. Neck supple. Full range of motion. No adenopathy thyromegaly or neck vein distention. Cardiovascular examination reveals regular rhythm rate. S1-S2 normal. No S3 or S4. No discernible murmur noted. Lungs reveal few scattered rhonchi bilaterally. There is slight prolongation on forced maneuver. Some minimal high-pitched wheezes are noted. Breath sounds are equal bilaterally. Most adventitious lung sounds are noted in the left lung. Abdomen soft bowel sounds are heard. No masses or tenderness. Extremities are intact. No cyanosis clubbing or edema. Skin is without rash or lesion. Neurologic examination is brief but nonfocal. - Labs CBC & Chem 7: 12/03/17 07:22 12/03/17 07:22 Labs: Abnormal Lab Results - Last 24 Hours (Table) 12/02/17 12/02/17 12/03/17 Range/Units 17:12 19:59 07:01 Hgb (11.4-16.0) gm/dL Hct (34.0-46.0) % MCV (80.0-100.0) fL Lymphocytes # (1.0-4.8) k/uL Creatinine (0.52-1.04) mg/dL Glucose (74-99) mg/dL POC Glucose (mg/dL) 194 H 201 H 231 H (75-99) mg/dL AST (14-36) U/L ALT (9-52) U/L Total Protein (6.3-8.2) g/dL Albumin (3.5-5.0) g/dL 12/03/17 12/03/17 12/03/17 Range/Units 07:22 07:22 11:01 Hgb 11.1 L (11.4-16.0) gm/dL Hct 33.5 L (34.0-46.0) % MCV 78.9 L (80.0-100.0) fL Lymphocytes # 0.7 L (1.0-4.8) k/uL Creatinine 0.51 L (0.52-1.04) mg/dL Glucose 223 H (74-99) mg/dL POC Glucose (mg/dL) 194 H (75-99) mg/dL AST 72 H (14-36) U/L ALT 105 H (9-52) U/L Total Protein 5.7 L (6.3-8.2) g/dL Albumin 3.1 L (3.5-5.0) g/dL Microbiology - Last 24 Hours (Table) 12/02/17 12:48 Gram Stain - Preliminary Bronchoalviolar Lavage - Right Bronchial Washings Culture - Preliminary 12/02/17 12:48 Fungal Culture - Preliminary Bronchoalviolar Lavage - Right 12/02/17 12:48 Acid Fast Bacilli Culture - Preliminary Bronchoalviolar Lavage - Right 11/28/17 14:03 Blood Culture - Preliminary Blood No Growth after 96 hours 11/30/17 07:30 Gram Stain - Final Sputum Sputum Culture - Final Jenise albicans Assessment and Plan Plan: Assessment -Bilateral patchy pneumonia with mild exacerbation of asthma in a patient who may have had influenza 7 or 10 days ago. Possibility of a superinfection with a bacterial pneumonia cannot be completely ruled out. Influenza screen was negative during this current admission. Patient and accommodation of Zosyn and vancomycin. The patient still has persistent poorly patchy infiltrates which are more conspicuous. Lactic acid level is also fluctuating and after he dropped, the patient lactic acid level has been fluctuating in the most recent lactic acid level is down to 4.7. Nevertheless, despite hydration antibiotic treatment the patient lactic acid level never normalized. Rule out drug effect causing some degree of lactic acidosis. In any rate, the patient is still being treated with a combination of Zosyn and vancomycin on today's evaluation there is worsening of the bilateral pulmonary filtrates more so on the left. Will need a CAT scan of the chest with possible bronchoscopy in a.m. On 12/03/2007 and I'm seeing this patient for a follow-up. There is extensive bilateral pulmonary infiltrates with groundglass infiltration and some patchy infiltration with peribronchial distribution in the upper and lower lobes more so on the left. The patient underwent a bronchoscopy today and the bronchial lavage of the lingula was obtained. Unable to do the biopsy and the patient was quite unstable and she would desaturate easily under conscious sedation. The patient completed the procedure without any complication. Levaquin will be added to broaden antibiotic coverage. On 12/03/2017, the patient is feeling better and the patient is less short of breath compared to yesterday. Oxygenation is improved and the patient is currently down to 2 L of oxygen by nasal cannula saturating around 92-93%. Bronchoscopy was done and the lavage cultures are still pending for now. Meanwhile, continue the bronchodilators and a combination of antibiotics including Zosyn and Levaquin and vancomycin. -Multiple environmental ALLERGIES -Vitamin D deficiency -Hypertension -Diabetes mellitus -Gastroesophageal reflux disease -Previous history of hysterectomy and tonsillectomy -Lifelong nonsmoker. Plan Repeat chest x-ray in the morning with PA and lateral views. Continue same antibiotic coverage. Awaiting the results of the bronchioloalveolar lavage. Clinically improved. We'll continue to follow make further recommendations based on her progress. ID is on the case. No gastrointestinal complaints. Cut down the fluids to KVO. The echocardiogram showed a preserved LV function with an ejection fraction of 6065% and the PA pressure is estimated to be at 35. No other abnormalities noted on the echocardiogram.
[2017-12-03 16:54] LABS: Glucose,Whole Blood 254 mg/dL (75-99)
[2017-12-03] MEDS: LEVOFLOXACIN 750 MG TAB PO SCH (17:23)
[2017-12-03] MEDS: LORATADINE 10 MG TAB PO SCH (20:01)
[2017-12-03] MEDS: MONTELUKAST 10 MG TAB PO SCH (20:01)
[2017-12-03 20:21] LABS: Glucose,Whole Blood 144 mg/dL (75-99)
[2017-12-03] MEDS: LOSARTAN 25 MG TAB PO SCH (21:25)
--- NOTE | 2017-12-03 23:26 | PN ---
PROGRESS NOTE DATE OF SERVICE: 12/03/2017 REASON FOR FOLLOWUP: Pneumonia. INTERVAL HISTORY: The patient is afebrile. She seems to be breathing more comfortably. Her cough has decreased in intensity. It is mostly dry in nature. No chest pain. No nausea, vomiting or abdominal pain and no diarrhea. PHYSICAL EXAMINATION: Blood pressure is 120/57 with a pulse of 95, temperature 97.6. She is 92% on 2 L nasal cannula. General description is a middle-aged female up in the bed in no distress. RESPIRATORY SYSTEM: Unlabored breathing. Some decreased breath sounds. No wheeze or crackle. HEART: S1, S2. Regular rate and rhythm. ABDOMEN: Soft. No tenderness. LABS: Hemoglobin is 11.1 with white count of 8.3, BUN of 11, creatinine 0.51. Bronch culture so far negative. Sputum with Jenise albicans. DIAGNOSTIC IMPRESSION AND PLAN: Patient admitted to hospital with difficulty breathing and cough which is likely multifactorial with a concern about likely pneumonia. So far culture has been negative for any resistant pathogen. If the patient continues to improve, she may be able to finish therapy with oral Levaquin. Family present at the bedside. Their questions were answered. MMODL / IJN: [id number] /
[2017-12-04] MEDS: PIPERACILLIN-TAZOBACTAM 3.375 GM in DEXTROSE/WATER 1 50ML.BAG IVPB SCH ×2 (02:13→09:51)
[2017-12-04] MEDS: ENOXAPARIN 40 MG/0.4 ML SYRINGE SQ SCH ×2 (02:14→08:15)
--- NOTE | 2017-12-04 03:56 | PN ---
PROGRESS NOTE DATE OF SERVICE: December 03, 2017. PRESENT COMPLAINT: Tired. INTERVAL HISTORY: This patient admitted with symptoms starting at least a week prior to presentation to the hospital and seen by family doctor, given antibiotic steroids to which she did not improve. She was congested, short of breath. Came to the hospital. Was put on broad- spectrum antibiotics, steroids. Did undergo bronchoscopy with lavage was carried out. The patient's breathing is better. Did actually tolerate some diet, actually today. No fever. Lungs field opened up. REVIEW OF SYSTEMS: Done for constitutional, cardiovascular, GI, pulmonary, relevant findings as above. CURRENT MEDICATIONS: Reviewed that include DuoNeb, nebulized Pulmicort, insulin, IV Solu-Medrol, IV Zosyn. PHYSICAL EXAMINATION: On examination, afebrile, pulse 80, respiration 16, blood pressure 138/65, pulse ox 96% on 3 L. General appearance sitting up comfortable. EYES: Pupils equal. Conjunctivae are normal. HEENT: External appearance of nose and ears normal. Oral cavity normal. Neck JVD not raised. Mass not palpable. Respiratory effort lungs fair entry. Cardiovascular 1st and 2nd sounds normal. No edema. ABDOMEN: Soft, nontender. Liver and spleen not palpable. Psychiatry: Alert and oriented times three. Mood and affect slightly anxious-appearing. INVESTIGATIONS: White count 8.3, hemoglobin 11.1, platelets 226, lymphocytes 0.7, potassium 3.9, BUN 11, creatinine 0.51. Accu-Cheks are noted. ASSESSMENT: 1. This is a patient who has had bilateral infiltrates, having failed outpatient treatment and given also broad-spectrum antibiotics here and what is interesting patient never had a fever, no white count in spite of being on high dose of steroids. Had bilateral infiltrates, which actually responded very well to bronchoscopy. Workup remains in place. It may be noted that the patient had also some associated elevated LFTs. 2. Moderate persistent asthma with acute exacerbation. 3. Diabetes mellitus type 2, uncontrolled from steroids on IV insulin drip. PLAN: We will check the patient's hemoglobin panel and also after talking to the patient, we will check an HIV. The other consideration is this patient may have underlying BOOP and she is already on steroids for the same. We will likely consider scaling back on antibiotics once the culture results are back. Care was discussed with the patient. Follow. MMODL / IJN: [id number] /
[2017-12-04 07:12] LABS: Glucose,Whole Blood 215 mg/dL (75-99)
[2017-12-04] MEDS: BUDESONIDE 1 MG/2 ML NEBU INHALATION SCH (07:44)
[2017-12-04] MEDS: IPRATROPIUM-ALBUTEROL 3 ML NEB INHALATION SCH ×4 (07:44→19:48)
[2017-12-04] MEDS: FORMOTEROL FUMARATE 20 MCG/2 ML NEBU INHALATION SCH ×2 (07:44→19:48)
[2017-12-04 07:56] LABS: Basophils % (A) 0 %; Eosinophils % (A) 0 %; HGB 10.3 gm/dL (11.4-16.0); Lymphocytes # (A) 0.8 k/uL (1.0-4.8); Lymphocytes % (A) 9 %; MCHC 33.4 g/dL (31.0-37.0); MCV 77.9 fL (80.0-100.0); Mean Platelet Volume 8.2; Monocytes # (A) 0.4 k/uL (0-1.0); Monocytes % (A) 5 %; Neutrophils # (A) 7.6 k/uL (1.3-7.7); Neutrophils % (A) 85 %; Platelet Count 231 k/uL (150-450); RBC 3.98 m/uL (3.80-5.40); RDW 14.6 % (11.5-15.5); WBC 8.9 k/uL (3.8-10.6)
[2017-12-04] MEDS: INSULIN ASPART 100 UNIT/ML 1 ML 10 ML VIAL SQ SCH ×4 (08:09→20:30)
[2017-12-04] MEDS: metFORMIN 500 MG TAB PO SCH ×2 (08:15→17:30)
[2017-12-04] MEDS: METOPROLOL SUCCINATE (ER) 50 MG TAB.ER.24H PO SCH (08:15)
[2017-12-04] MEDS: methylPREDNISolone SOD SUCCI 40 MG/ML 1 ML VIAL IV SCH ×2 (08:15→15:55)
[2017-12-04] MEDS: MAGNESIUM OXIDE 400 MG TAB PO SCH (08:15)
[2017-12-04] MEDS: FAMOTIDINE 20 MG TAB PO SCH ×2 (08:15→20:30)
[2017-12-04] MEDS: PANTOPRAZOLE 40 MG TABLET PO SCH ×2 (08:15→17:30)
[2017-12-04] MEDS: CLOBETASOL PROP 0.05% CR 15GM TOPICAL SCH ×2 (08:16→20:30)
[2017-12-04] MEDS: NICOTINE 14MG/24HR PATCH TRANSDERM SCH (08:16)
[2017-12-04 08:22] LABS: ALT 94 U/L (9-52); AST 54 U/L (14-36); Albumin 3.1 g/dL (3.5-5.0); Alkaline Phosphatase 55 U/L (38-126); Anion Gap 10 mmol/L; Blood Urea Nitrogen 11 mg/dL (7-17); Calcium 8.7 mg/dL (8.4-10.2); Carbon Dioxide 29 mmol/L (22-30); Chloride 98 mmol/L (98-107); Glucose 205 mg/dL (74-99); Potassium 3.3 mmol/L (3.5-5.1); Sodium 137 mmol/L (137-145); Total Bilirubin 0.6 mg/dL (0.2-1.3); Total Protein 5.6 g/dL (6.3-8.2)
--- NOTE | 2017-12-04 08:28 | XR ---
EXAMINATION TYPE: XR chest 2V DATE OF EXAM: 12/04/2017 COMPARISON: Prior chest x-ray 12/01/2017 HISTORY: Follow-up pneumonia TECHNIQUE: Frontal and lateral views of the chest are obtained. FINDINGS: Airspace disease is somewhat improved. No pneumothorax or pleural effusion. Heart size is stable. IMPRESSION: Improvement in patient's airspace disease.
[2017-12-04 09:26] LABS: T4, Free (Free Thyroxine) 1.61 ng/dL (0.78-2.19)
[2017-12-04 11:35] LABS: Glucose,Whole Blood 187 mg/dL (75-99)
[2017-12-04] MEDS: CHOLECALCIFEROL 1,000 UNIT TAB PO SCH (12:40)
[2017-12-04] MEDS: METHIMAZOLE 5 MG TAB PO SCH (15:56)
--- NOTE | 2017-12-04 16:21 | PN ---
PROGRESS NOTE DATE OF SERVICE: 12/04/2017 REASON FOR FOLLOWUP: Pneumonia. INTERVAL HISTORY: The patient is afebrile. She seems to be breathing more comfortably. She did have some problem with palpitations, burning of the heart this morning. An EKG has been ordered. Discharge has been put on hold. No nausea, no vomiting. No abdominal pain and no diarrhea. PHYSICAL EXAMINATION: Blood pressure is 124/65 with a pulse of 70, temperature of 98.2. She is 94% on room air. General description is a middle-aged female up in the bed in no distress. RESPIRATORY SYSTEM: Unlabored breathing with decreased intensity of breath sounds. No wheeze. HEART: S1, S2. Regular rate and rhythm. ABDOMEN: Soft. No tenderness. LABS: Hemoglobin is 10.3, white count 8.9, BUN of 11, creatinine 0.54. Bronch culture is so far negative. DIAGNOSTIC IMPRESSION AND PLAN: Patient admitted to hospital with pneumonia. So far sputum has been negative for any resistant pathogen. Jenise is more likely colonized. Antibiotic is to continue in the form of Levaquin for another week. Plan of care was discussed with the pr manager as well as the admitting physician. MMODL / IJN: [id number] /
[2017-12-04 17:02] LABS: Glucose,Whole Blood 160 mg/dL (75-99)
[2017-12-04] MEDS: LEVOFLOXACIN 750 MG TAB PO SCH (17:29)
--- NOTE | 2017-12-04 17:46 | P.PN ---
Subjective Progress Note Date: 12/04/17 61-year-old female patient is being seen in follow-up. The patient is a lifetime nonsmoker. She has history of bronchial asthma maintained on a combination of Dulera and Singulair on outpatient basis. She is also diabetic. She came in for pneumonia, asthma exacerbation and some mild leukocytosis. Her lactic acid level has been fluctuating still and a venous lactate was high as 6.1. After achieving it was a level of 3.2 at this noontime the lactic acid came back at 5.7. The patient is was resuscitated IV fluids. The patient is also covered with broad-spectrum antibiotics and currently the patient is receiving a combination of Zosyn and vancomycin. Renal function is within normal limits. The patient is taking metformin yet the patient did not take any contrast material. The patient has no leukocytosis and the white cell count is at 8.5. A follow-up chest x-ray was done today and the patient was found to have bilateral pneumonia and bilateral patchy airspace disease was noted some of which are more conspicuous. There is no evidence of any pleural effusion or pneumothorax. Patient remains on 2 L of oxygen nasal cannula and the pulse ox is around 96%. Vancomycin trough was 17.9 from today. 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 The patient check negative for influenza. On 12/01/2017 the patient is being seen in the follow-up. Systolic the same. The patient is still hypoxic on 3 L of oxygen by nasal cannula saturating on 90% . She is still having difficulties in breathing. Loose diarrhea. No fever or chills. A repeat chest x-ray was done today and it showed bilateral pulmonary infiltrates slightly worse compared to yesterday. Note that the patient's influenza screen was negative. Since admission the patient was kept on a combination of Zosyn and vancomycin. Cultures of been all negative. Note that the patient received also Rocephin on outpatient basis through her primary care physician. Based on all this, a CAT scan of the chest will be done with concentration a bronchoscopy in a.m. if no improvement and all worsening of the pulmonary infiltrates. The chest x-ray from today showed diffuse bilateral pulmonary infiltrates. This is most likely consistent with pneumonia. On 12/02/2017 of seeing this patient for a follow-up. The patient is being treated for multilobar pneumonia. I was concerned that the patient was not showing the signs of improvement that she is supposed to get with broad- spectrum antibiotic coverage. Based on that, I performed a CAT scan of the chest that was completed yesterday showed multilobar pneumonia with more involvement of the left upper lobe in the lingular segment and to lesser extent in the lower lobes bilaterally. Based on this, and based on her ongoing hypoxemia and respiratory distress, I planned to proceed with a bronchoscopy and obtain a lavage from the left lung to establish an microbial diagnosis. The patient is on Zosyn and vancomycin. Levaquin will be added. The patient is also on IV Solu-Medrol. The patient was seen preoperatively of the bronchoscopy suite. The patient was on 3 L of oxygen by nasal cannula. The patient was completed and the patient will be moved back to the medical floor. An infection disease consultation will be also obtained. She is hemodynamically stable at this point. An echocardiogram was also added. A dose of Lasix was also given to the patient yesterday. She is having progressive worsening shortness of breath. On 12/04/2007 and I'm seeing this patient for a follow-up. The patient is being treated for multilobar pneumonia and she is currently on a broad-spectrum antibiotics including a combination of Levaquin and Zosyn and vancomycin. The patient underwent a bronchoscopy yesterday and the bronchioloalveolar lavage is still pending for now. The patient is feeling much better on today's evaluation. She is less short of breath. She is breathing easier. Chest is less tight. There has been improvement in them will to continue same treatment pending the follow-up chest x-ray and pending the results of the bronchioloalveolar lavage. No nausea. No vomiting. No diarrhea. No abdominal pain. She is on systemic steroids. She is afebrile for now. Pulse ox is 92% liters of oxygen by nasal cannula. White cell count is not elevated. The lactic acid level finally dropped down to 1.9. The cell count from the bronchioloalveolar lavage showed mononuclear predominance. On 12/04/2017 I'm seeing this patient in follow-up. The patient doing extremely well. No specific complaints. She is improving. The bronchoscopy was completed. The bronchioloalveolar lavage showed no microbial growth. The viral cultures were all negative. The bacteria cultures are all negative. Legionella urine antigen was negative. Influenza screen was negative. Clinically the patient is improving. The chest x-ray from today is showing improvement in the right the pulmonary infiltrates. Oxygenation is improving and the patient is currently on 2 L and on room air she maintain a saturation above 90%. She is on IV Solu-Medrol. Antibiotics will be simplified. She is ambulating. No other significant events over the past 24 hours. Objective - Vital Signs Vital signs: Vital Signs Temp 98.2 F 12/04/17 15:43 Pulse 82 12/04/17 15:45 Resp 16 12/04/17 15:45 BP 124/65 12/04/17 15:43 Pulse Ox 94 L 12/04/17 15:43 Intake & Output 12/03/17 12/04/17 12/04/17 18:59 06:59 18:59 Intake Total 50 450 50 Balance 50 450 50 Weight 70.307 kg Intake: Intake, IV Titration 50 50 50 Amount Piperacillin-Tazobactam 3 50 50 50 .375 gm In Dextrose/Water 1 50ml.bag @ 12.5 mls/hr IVPB Q8H [facility] Rx#: [id number] Oral 400 Other: Voiding Method Toilet Toilet Toilet # Voids 2 - Exam No acute distress, oriented 3. HEENT examination is grossly unremarkable. Mucous membranes are moist. No oral lesions. Neck supple. Full range of motion. No adenopathy thyromegaly or neck vein distention. Cardiovascular examination reveals regular rhythm rate. S1-S2 normal. No S3 or S4. No discernible murmur noted. Lungs diminished breath sound bilaterally otherwise clear and there is improvement in the previous described pulmonary crackles. Abdomen soft bowel sounds are heard. No masses or tenderness. Extremities are intact. No cyanosis clubbing or edema. Skin is without rash or lesion. Neurologic examination is brief but nonfocal. - Labs CBC & Chem 7: 12/04/17 07:00 12/04/17 07:00 Labs: Abnormal Lab Results - Last 24 Hours (Table) 12/03/17 12/04/17 12/04/17 Range/Units 20:18 07:00 07:00 Hgb 10.3 L (11.4-16.0) gm/dL Hct 31.0 L (34.0-46.0) % MCV 77.9 L (80.0-100.0) fL Lymphocytes # 0.8 L (1.0-4.8) k/uL Potassium 3.3 L (3.5-5.1) mmol/L Glucose 205 H (74-99) mg/dL POC Glucose (mg/dL) 144 H (75-99) mg/dL AST 54 H (14-36) U/L ALT 94 H (9-52) U/L Total Protein 5.6 L (6.3-8.2) g/dL Albumin 3.1 L (3.5-5.0) g/dL TSH 0.242 L (0.465-4.680) mIU/L 12/04/17 12/04/17 12/04/17 Range/Units 07:11 11:33 16:56 Hgb (11.4-16.0) gm/dL Hct (34.0-46.0) % MCV (80.0-100.0) fL Lymphocytes # (1.0-4.8) k/uL Potassium (3.5-5.1) mmol/L Glucose (74-99) mg/dL POC Glucose (mg/dL) 215 H 187 H 160 H (75-99) mg/dL AST (14-36) U/L ALT (9-52) U/L Total Protein (6.3-8.2) g/dL Albumin (3.5-5.0) g/dL TSH (0.465-4.680) mIU/L Microbiology - Last 24 Hours (Table) 11/28/17 14:03 Blood Culture - Final Blood No Growth after 144 hours 12/02/17 12:48 Gram Stain - Final Bronchoalviolar Lavage - Right Bronchial Washings Culture - Final Jenise albicans 12/02/17 12:48 Acid Fast Bacilli Smear - Final Bronchoalviolar Lavage - Right Acid Fast Bacilli Culture - Preliminary Assessment and Plan Plan: Assessment -Bilateral patchy pneumonia with mild exacerbation of asthma in a patient who may have had influenza 7 or 10 days ago. Possibility of a superinfection with a bacterial pneumonia cannot be completely ruled out. Influenza screen was negative during this current admission. Patient and accommodation of Zosyn and vancomycin. The patient still has persistent poorly patchy infiltrates which are more conspicuous. Lactic acid level is also fluctuating and after he dropped, the patient lactic acid level has been fluctuating in the most recent lactic acid level is down to 4.7. Nevertheless, despite hydration antibiotic treatment the patient lactic acid level never normalized. Rule out drug effect causing some degree of lactic acidosis. In any rate, the patient is still being treated with a combination of Zosyn and vancomycin on today's evaluation there is worsening of the bilateral pulmonary filtrates more so on the left. Will need a CAT scan of the chest with possible bronchoscopy in a.m. On 12/03/2007 and I'm seeing this patient for a follow-up. There is extensive bilateral pulmonary infiltrates with groundglass infiltration and some patchy infiltration with peribronchial distribution in the upper and lower lobes more so on the left. The patient underwent a bronchoscopy today and the bronchial lavage of the lingula was obtained. Unable to do the biopsy and the patient was quite unstable and she would desaturate easily under conscious sedation. The patient completed the procedure without any complication. Levaquin will be added to broaden antibiotic coverage. On 12/03/2017, the patient is feeling better and the patient is less short of breath compared to yesterday. Oxygenation is improved and the patient is currently down to 2 L of oxygen by nasal cannula saturating around 92-93%. Bronchoscopy was done and the lavage cultures are still pending for now. Meanwhile, continue the bronchodilators and a combination of antibiotics including Zosyn and Levaquin and vancomycin. On 12/04/2017, all of the cultures are still negative from the bronchial alveolar lavage. Clinically the patient is improving and the patient is oxygenating much better. Respiratory distress also improving. -Multiple environmental ALLERGIES -Vitamin D deficiency -Hypertension -Diabetes mellitus -Gastroesophageal reflux disease -Previous history of hysterectomy and tonsillectomy -Lifelong nonsmoker. Plan The patient will be taken of Zosyn and vancomycin. Continue Levaquin. The steroids will be tapered down to prednisone as of tomorrow. Exact cause of this pneumonia is not clear although is improving. Rule out a postinfectious bloop. We will discharge this patient home on Levaquin and prednisone burst taper to be followed up on outpatient basis and hopefully she will be discharged within next 24 hours. I'm very much encouraged by her progress and she is doing much better for now.
--- NOTE | 2017-12-04 19:36 | PN ---
PROGRESS NOTE DATE OF SERVICE: 12/04/17 PRESENTING COMPLAINT: Cough. INTERVAL HISTORY: This patient presented with respiratory symptoms, significant x-ray findings, status post bronchoscopy that was unremarkable. Clinically, she has improved quite a bit. Cough has gone down. Breathing is better. Having some palpitations, occasionally. There has been no fever. REVIEW OF SYSTEMS: Done for constitutional, cardiovascular, GI, pulmonary; relevant findings as above. CURRENT MEDICATIONS: Reviewed include IV Zosyn and IV Solu-Medrol. PHYSICAL EXAMINATION: Temperature 98.2, pulse 70, respirations 18, blood pressure 125/65, pulse ox 94% on room air. GENERAL APPEARANCE: Sitting up. EYES: Pupils equal. Conjunctivae normal. exophthalmos. HEENT: External appearance of nose and ears normal. Oral cavity normal. NECK: JVD not raised. Mass not palpable. RESPIRATORY: Effort normal. Lungs improved air entry. CARDIOVASCULAR: 1st and 2nd sounds normal. No edema. ABDOMEN: Soft, nontender. Liver and spleen not palpable. PSYCHIATRY: Alert and oriented x3. Mood and affect anxious-appearing. INVESTIGATIONS: White count 8.9, hemoglobin 10.3, potassium 3.3. Accu-Cheks noted. AST 54, ALT 94. TSH 0.242, free T4 1.61. ASSESSMENT: 1. This is a patient with bilateral infiltrates, symptomatic. All the cultures have come back negative including Legionella. Viral cultures are negative from bronchoscopy. I discussed with Dr. Peraza's. The patient has been switched yesterday to Levaquin to cover the atypical organism and Zosyn can be discontinued. 2. Moderate persistent asthma with acute exacerbation. 3. Diabetes mellitus type 2, uncontrolled from steroids and IV insulin drip. 4. Hyperthyroidism in a patient who is clinically anxious, has exophthalmos. TSH is rather low, though the free T4 is on the higher side but clinically patient does look like to be hyperthyroid. Hence, will treat her for the same. PLAN: Discussed with Dr. Peraza. At this point we will keep the patient on Levaquin. Also discussed with Dr. Devine from Infectious Disease. IV Zosyn is being discontinued. Will DC the Solu-Medrol. We will put the patient on methimazole. The patient is already on beta darion. Just repeat a chest x-ray. Will have the patient follow with Dr. Staley from Endocrinology. Total time spent today was about 40-45 minutes with over 25 minutes of discussion. MMODL / IJN: [id number] /
[2017-12-04 19:53] LABS: Glucose,Whole Blood 237 mg/dL (75-99)
[2017-12-04] MEDS: MONTELUKAST 10 MG TAB PO SCH (20:31)
[2017-12-04] MEDS: LOSARTAN 25 MG TAB PO SCH (20:35)
[2017-12-04] MEDS ORDERED: MELATONIN 5 MG TABLET PO SCH (21:00)
[2017-12-04 23:11] VITALS: TEMP 97
[2017-12-05 06:40] LABS: Glucose,Whole Blood 120 mg/dL (75-99)
[2017-12-05] MEDS: FORMOTEROL FUMARATE 20 MCG/2 ML NEBU INHALATION SCH (07:06)
[2017-12-05] MEDS: IPRATROPIUM-ALBUTEROL 3 ML NEB INHALATION SCH ×2 (07:06→10:45)
[2017-12-05] MEDS: PANTOPRAZOLE 40 MG TABLET PO SCH (07:31)
[2017-12-05] MEDS: ENOXAPARIN 40 MG/0.4 ML SYRINGE SQ SCH (07:32)
[2017-12-05] MEDS: CLOBETASOL PROP 0.05% CR 15GM TOPICAL SCH (07:32)
[2017-12-05] MEDS: FAMOTIDINE 20 MG TAB PO SCH (07:32)
[2017-12-05] MEDS: metFORMIN 500 MG TAB PO SCH (07:32)
[2017-12-05] MEDS: METOPROLOL SUCCINATE (ER) 50 MG TAB.ER.24H PO SCH (07:33)
[2017-12-05] MEDS: MAGNESIUM OXIDE 400 MG TAB PO SCH (07:33)
[2017-12-05 07:34] LABS: Basophils % (A) 0 %; Eosinophils % (A) 0 %; HCT 30.8 % (34.0-46.0); HGB 10.2 gm/dL (11.4-16.0); Lymphocytes # (A) 1.7 k/uL (1.0-4.8); Lymphocytes % (A) 20 %; MCH 25.8 pg (25.0-35.0); MCHC 33.1 g/dL (31.0-37.0); Mean Platelet Volume 7.6; Monocytes # (A) 0.4 k/uL (0-1.0); Monocytes % (A) 4 %; Neutrophils # (A) 6.5 k/uL (1.3-7.7); Neutrophils % (A) 75 %; Platelet Count 246 k/uL (150-450); RBC 3.94 m/uL (3.80-5.40); RDW 14.7 % (11.5-15.5); WBC 8.7 k/uL (3.8-10.6)
[2017-12-05] MEDS: INSULIN ASPART 100 UNIT/ML 1 ML 10 ML VIAL SQ SCH ×2 (07:37→13:31)
[2017-12-05 08:00] LABS: ALT 145 U/L (9-52); AST 116 U/L (14-36); Albumin 2.9 g/dL (3.5-5.0); Alkaline Phosphatase 50 U/L (38-126); Anion Gap 8 mmol/L; Blood Urea Nitrogen 10 mg/dL (7-17); Calcium 8.7 mg/dL (8.4-10.2); Carbon Dioxide 29 mmol/L (22-30); Chloride 102 mmol/L (98-107); Glucose 113 mg/dL (74-99); Potassium 3.1 mmol/L (3.5-5.1); Sodium 139 mmol/L (137-145); Total Bilirubin 0.5 mg/dL (0.2-1.3); Total Protein 5.2 g/dL (6.3-8.2)
[2017-12-05 08:02] VITALS: BP 138/63; RESP 18
[2017-12-05] MEDS ORDERED: predniSONE 20 MG TAB PO SCH (09:00)
[2017-12-05] MEDS: METHIMAZOLE 5 MG TAB PO SCH (09:12)
[2017-12-05] MEDS ORDERED: POTASSIUM CHLORIDE ER 20 MEQ TAB.ER PO STA (10:32)
[2017-12-05 10:56] VITALS: PULSE 92
[2017-12-05 11:44] LABS: Glucose,Whole Blood 237 mg/dL (75-99)
[2017-12-05] MEDS: CHOLECALCIFEROL 1,000 UNIT TAB PO SCH (12:06)
--- NOTE | 2017-12-05 16:16 | P.PN ---
Subjective Progress Note Date: 12/05/17 Principal diagnosis: Acute hypoxic respiratory failure secondary to bilateral pneumonia. 61-year-old female patient is being seen in follow-up. The patient is a lifetime nonsmoker. She has history of bronchial asthma maintained on a combination of Dulera and Singulair on outpatient basis. She is also diabetic. She came in for pneumonia, asthma exacerbation and some mild leukocytosis. Her lactic acid level has been fluctuating still and a venous lactate was high as 6.1. After achieving it was a level of 3.2 at this noontime the lactic acid came back at 5.7. The patient is was resuscitated IV fluids. The patient is also covered with broad-spectrum antibiotics and currently the patient is receiving a combination of Zosyn and vancomycin. Renal function is within normal limits. The patient is taking metformin yet the patient did not take any contrast material. The patient has no leukocytosis and the white cell count is at 8.5. A follow-up chest x-ray was done today and the patient was found to have bilateral pneumonia and bilateral patchy airspace disease was noted some of which are more conspicuous. There is no evidence of any pleural effusion or pneumothorax. Patient remains on 2 L of oxygen nasal cannula and the pulse ox is around 96%. Vancomycin trough was 17.9 from today. 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 The patient check negative for influenza. On 12/01/2017 the patient is being seen in the follow-up. Systolic the same. The patient is still hypoxic on 3 L of oxygen by nasal cannula saturating on 90% . She is still having difficulties in breathing. Loose diarrhea. No fever or chills. A repeat chest x-ray was done today and it showed bilateral pulmonary infiltrates slightly worse compared to yesterday. Note that the patient's influenza screen was negative. Since admission the patient was kept on a combination of Zosyn and vancomycin. Cultures of been all negative. Note that the patient received also Rocephin on outpatient basis through her primary care physician. Based on all this, a CAT scan of the chest will be done with concentration a bronchoscopy in a.m. if no improvement and all worsening of the pulmonary infiltrates. The chest x-ray from today showed diffuse bilateral pulmonary infiltrates. This is most likely consistent with pneumonia. On 12/02/2017 of seeing this patient for a follow-up. The patient is being treated for multilobar pneumonia. I was concerned that the patient was not showing the signs of improvement that she is supposed to get with broad- spectrum antibiotic coverage. Based on that, I performed a CAT scan of the chest that was completed yesterday showed multilobar pneumonia with more involvement of the left upper lobe in the lingular segment and to lesser extent in the lower lobes bilaterally. Based on this, and based on her ongoing hypoxemia and respiratory distress, I planned to proceed with a bronchoscopy and obtain a lavage from the left lung to establish an microbial diagnosis. The patient is on Zosyn and vancomycin. Levaquin will be added. The patient is also on IV Solu-Medrol. The patient was seen preoperatively of the bronchoscopy suite. The patient was on 3 L of oxygen by nasal cannula. The patient was completed and the patient will be moved back to the medical floor. An infection disease consultation will be also obtained. She is hemodynamically stable at this point. An echocardiogram was also added. A dose of Lasix was also given to the patient yesterday. She is having progressive worsening shortness of breath. On 12/04/2007 and I'm seeing this patient for a follow-up. The patient is being treated for multilobar pneumonia and she is currently on a broad-spectrum antibiotics including a combination of Levaquin and Zosyn and vancomycin. The patient underwent a bronchoscopy yesterday and the bronchioloalveolar lavage is still pending for now. The patient is feeling much better on today's evaluation. She is less short of breath. She is breathing easier. Chest is less tight. There has been improvement in them will to continue same treatment pending the follow-up chest x-ray and pending the results of the bronchioloalveolar lavage. No nausea. No vomiting. No diarrhea. No abdominal pain. She is on systemic steroids. She is afebrile for now. Pulse ox is 92% liters of oxygen by nasal cannula. White cell count is not elevated. The lactic acid level finally dropped down to 1.9. The cell count from the bronchioloalveolar lavage showed mononuclear predominance. On 12/04/2017 I'm seeing this patient in follow-up. The patient doing extremely well. No specific complaints. She is improving. The bronchoscopy was completed. The bronchioloalveolar lavage showed no microbial growth. The viral cultures were all negative. The bacteria cultures are all negative. Legionella urine antigen was negative. Influenza screen was negative. Clinically the patient is improving. The chest x-ray from today is showing improvement in the right the pulmonary infiltrates. Oxygenation is improving and the patient is currently on 2 L and on room air she maintain a saturation above 90%. She is on IV Solu-Medrol. Antibiotics will be simplified. She is ambulating. No other significant events over the past 24 hours. The patient is seen again today 12/05/2017 in follow-up in the regular medical floor. She is awake and alert in no acute distress. She was back to her baseline. She is anxious to go home. She denies any worsening shortness of breath, cough or congestion. No chills or night sweats. Obtaining good O2 saturations in the 90s on room air. She's been afebrile. Hemodynamically stable. Bronchial wash findings revealed no growth. Objective - Vital Signs Vital signs: Vital Signs Temp 97 F L 12/04/17 23:10 Pulse 92 12/05/17 10:55 Resp 18 12/05/17 08:02 BP 138/63 12/05/17 08:02 Pulse Ox 96 12/05/17 08:02 Intake & Output 12/04/17 12/05/17 12/05/17 18:59 06:59 18:59 Intake Total 50 490 Balance 50 490 Weight 70.307 kg Intake: Intake, IV Titration 50 Amount Piperacillin-Tazobactam 3 50 .375 gm In Dextrose/Water 1 50ml.bag @ 12.5 mls/hr IVPB Q8H [facility] Rx#: [id number] Oral 490 Other: Voiding Method Toilet Toilet Toilet # Voids 2 - Exam GENERAL EXAM: Alert, active, comfortable in no apparent distress. HEAD: Normocephalic. EYES: Normal reaction of pupils, equal size. NOSE: Clear with pink turbinates. THROAT: No erythema or exudates. NECK: No masses, no JVD. CHEST: No chest wall deformity. LUNGS: Equal air entry with no crackles, wheeze, rhonchi or dullness. CVS: S1 and S2 normal with no audible murmur, regular rhythm. ABDOMEN: No hepatosplenomegaly, normal bowel sounds, no guarding or rigidity. SPINE: No scoliosis or deformity SKIN: No rashes CENTRAL NERVOUS SYSTEM: No focal deficits, tone is normal in all 4 extremities. EXTREMITIES: There is no peripheral edema. No clubbing, no cyanosis. Peripheral pulses are intact. - Labs CBC & Chem 7: 12/05/17 07:13 12/05/17 07:13 Labs: Abnormal Lab Results - Last 24 Hours (Table) 12/04/17 12/04/17 12/04/17 Range/Units 07:00 16:56 19:50 Hgb (11.4-16.0) gm/dL Hct (34.0-46.0) % MCV (80.0-100.0) fL Potassium (3.5-5.1) mmol/L Glucose (74-99) mg/dL POC Glucose (mg/dL) 160 H 237 H (75-99) mg/dL AST (14-36) U/L ALT (9-52) U/L Total Protein (6.3-8.2) g/dL Albumin (3.5-5.0) g/dL T-Suppressor Cells 102 L (190-832) cell/ul Total T Cells 518 L (704-2138) cell/ul Absolute CD4 [place] 403 L (443-1471) cell/ul CD4/CD8 Ratio 4.0 H (1.0-3.7) % CD19 Cells 26 H (4-25) % 12/05/17 12/05/17 12/05/17 Range/Units 06:39 07:13 07:13 Hgb 10.2 L (11.4-16.0) gm/dL Hct 30.8 L (34.0-46.0) % MCV 78.0 L (80.0-100.0) fL Potassium 3.1 L (3.5-5.1) mmol/L Glucose 113 H (74-99) mg/dL POC Glucose (mg/dL) 120 H (75-99) mg/dL AST 116 H (14-36) U/L ALT 145 H (9-52) U/L Total Protein 5.2 L (6.3-8.2) g/dL Albumin 2.9 L (3.5-5.0) g/dL T-Suppressor Cells (190-832) cell/ul Total T Cells (704-2138) cell/ul Absolute CD4 [place] (443-1471) cell/ul CD4/CD8 Ratio (1.0-3.7) % CD19 Cells (4-25) % 12/05/17 Range/Units 11:38 Hgb (11.4-16.0) gm/dL Hct (34.0-46.0) % MCV (80.0-100.0) fL Potassium (3.5-5.1) mmol/L Glucose (74-99) mg/dL POC Glucose (mg/dL) 237 H (75-99) mg/dL AST (14-36) U/L ALT (9-52) U/L Total Protein (6.3-8.2) g/dL Albumin (3.5-5.0) g/dL T-Suppressor Cells (190-832) cell/ul Total T Cells (704-2138) cell/ul Absolute CD4 [place] (443-1471) cell/ul CD4/CD8 Ratio (1.0-3.7) % CD19 Cells (4-25) % Microbiology - Last 24 Hours (Table) 11/28/17 14:03 Blood Culture - Final Blood No Growth after 144 hours 12/02/17 12:48 Gram Stain - Final Bronchoalviolar Lavage - Right Bronchial Washings Culture - Final Jenise albicans Assessment and Plan Assessment: Assessment -Bilateral patchy pneumonia with mild exacerbation of asthma in a patient who may have had influenza 7 or 10 days ago. Possibility of a superinfection with a bacterial pneumonia cannot be completely ruled out. Influenza screen was negative during this current admission. Patient and accommodation of Zosyn and vancomycin. The patient still has persistent poorly patchy infiltrates which are more conspicuous. Lactic acid level is also fluctuating and after he dropped, the patient lactic acid level has been fluctuating in the most recent lactic acid level is down to 4.7. Nevertheless, despite hydration antibiotic treatment the patient lactic acid level never normalized. Rule out drug effect causing some degree of lactic acidosis. In any rate, the patient is still being treated with a combination of Zosyn and vancomycin on today's evaluation there is worsening of the bilateral pulmonary filtrates more so on the left. Will need a CAT scan of the chest with possible bronchoscopy in a.m. On 12/03/2007 and I'm seeing this patient for a follow-up. There is extensive bilateral pulmonary infiltrates with groundglass infiltration and some patchy infiltration with peribronchial distribution in the upper and lower lobes more so on the left. The patient underwent a bronchoscopy today and the bronchial lavage of the lingula was obtained. Unable to do the biopsy and the patient was quite unstable and she would desaturate easily under conscious sedation. The patient completed the procedure without any complication. Levaquin will be added to broaden antibiotic coverage. On 12/03/2017, the patient is feeling better and the patient is less short of breath compared to yesterday. Oxygenation is improved and the patient is currently down to 2 L of oxygen by nasal cannula saturating around 92-93%. Bronchoscopy was done and the lavage cultures are still pending for now. Meanwhile, continue the bronchodilators and a combination of antibiotics including Zosyn and Levaquin and vancomycin. On 12/04/2017, all of the cultures are still negative from the bronchial alveolar lavage. Clinically the patient is improving and the patient is oxygenating much better. Respiratory distress also improving. On 12/05/2017, the patient is nearly back to her baseline. She will be discharged home on oral antibiotics and a prednisone taper. -Multiple environmental ALLERGIES -Vitamin D deficiency -Hypertension -Diabetes mellitus -Gastroesophageal reflux disease -Previous history of hysterectomy and tonsillectomy -Lifelong nonsmoker. Plan The patient was seen and evaluated by Dr. Peraza. She is stable from the pulmonary standpoint. She is cleared for discharge. Complete her course of antibiotics. Complete a prednisone taper. She'll follow-up in our office in 1- 2 weeks' time. We will repeat a chest x-ray then. She is however encouraged to call sooner with any recurrence of symptoms or other questions or concerns. I, the cosigning physician, performed a history & physical examination of the patient. Lungs sounds are clear. Maintaining good O2 saturations in the 90s on room air. I discussed the assessment and plan of care with my nurse practitioner, Heather Santamaria. I attest to the above note as dictated by her.
--- NOTE | 2017-12-05 19:22 | DS ---
DISCHARGE SUMMARY DATE OF ADMISSION: November 28, 2017. DATE OF DISCHARGE: December 05, 2017. FINAL DIAGNOSES: 1. Bilateral pneumonia from atypical organisms present on admission. 2. Moderate persistent asthma with acute exacerbation. 3. Diabetes mellitus type 2, uncontrolled from steroids. 4. Possible hyperthyroidism. HOSPITAL COURSE: This patient presented with failed outpatient treatment of pneumonia, was rather symptomatic here initially. Did undergo bronchoscopy, not much secretions were found except for some inflammation. The patient's bacterial workup came back to be negative. Viral screen was negative. The patient may have atypical pneumonia or BOOP is also in the differential. The patient's hemoglobin workup is still pending. Initially patient did show some decrease in the T-cell line. This will be worked up as an outpatient. I did discuss with Dr. Olivier today. Clinically patient has exophthalmos low TSH and does get palpitations and she may have hyperthyroidism. Sister has Graves disease. She will follow up with Dr. Simons from Endocrinology luis an outpatient. This was discussed with the patient. Several questions were answered. EXAM: Lungs improved air entry. Cardiovascular first and second sounds normal. DISCHARGE MEDICATIONS: 1. Vitamin D3 5000 units p.o. daily. 2. Temovate 0.05% 1 topical b.i.d. 3. Claritin 10 mg q.h.s. 4. Cozaar 25 mg q.h.s. 5. Magnesium. 6. Toprol XL 50 mg a day. 7. Singulair 10 mg q.h.s. 8. Metformin 1000 mg b.i.d. 9. Januvia 100 mg p.o. daily. 10.Proventil 2 puffs q.4h p.r.n. 11.Levaquin 750 mg a day 7 days. 12.Tapazole 10 mg p.o. daily. 13.Dulera 2 puffs b.i.d. 14.Omeprazole 20 mg b.i.d. 15.Prednisone taper. FOLLOWUP: Follow up with Dr. Simons from Endocrinology in 1 week, Dr. Elise in 3 days, Dr. Peraza in 1 week. Discussion and discharge planning more than 35 minutes. PROCEDURE: Bronchoscopy. MMODL / IJN: [id number] /
--- NOTE | 2017-12-07 14:27 | CDI ---
Last Revision, August 2017 Documentation Clarification Form Date: 12/07/17 From: Dary Trace Sol Guillen, Cylinder Honer between 8:30 am & 5 pm Elis Admit Date: 11/28/2017 3:13:00 PM Patient Name: Irma Graf Visit Number: [id number] Discharge Date: 12/05/17 ATTENTION: The Clinical Documentation Specialists (CDI) and [facility] Coding Staff appreciate your assistance in clarifying documentation. Please respond to the clarification below the line at the bottom and electronically sign. The CDI & [facility] Coding staff will review the response and follow-up if needed. Please note: Queries are made part of the Legal Health Record. If you have any questions, please contact the author of this message via ITS. Dr. Aníbal Fragoso The patient has uncontrolled diabetes type 2 from steroids, as indicated on progress note 12/03, 12/04 and discharge summary. Clinical Indicators: glucose:172,231,217,177,194,278,188,185,...212,223,230,276, 175,181,237,198,218,194,201,231,194,254,... Treatment: IV Insulin drip In order to capture the severity of Illness and necessary documentation specificity, please clarify uncontrolled: Hyperglycemia Hypoglycemia Other, please specify Unable to Determine Please continue to document in your progress notes and discharge summary in order to capture severity of illness and risk of mortality. Include clinical findings that support your diagnosis. MTDD
== END 2017-12-05 14:05 | disposition home or self-care (01) | DRG 853 ==
LOC: EC 13:17 → 5MS5E 15:13
PROVIDERS: ADMIT Hospitalist; ATTEND Hospitalist
PROC: 0B9H8ZX Drainage of Lung Lingula, Via Natural or Artificial Opening Endoscopic, Diagnostic (ICD-10-PCS; principal; 2017-12-02 12:10)
DX: A41.50 Gram-negative sepsis, unspecified (principal); J15.6 Pneumonia due to other Gram-negative bacteria; J96.01 Acute respiratory failure with hypoxia; J45.41 Moderate persistent asthma with (acute) exacerbation; H05.20 Unspecified exophthalmos; K21.9 Gastro-esophageal reflux disease without esophagitis; K75.9 Inflammatory liver disease, unspecified; E55.9 Vitamin D deficiency, unspecified; I10 Essential (primary) hypertension; E05.90 Thyrotoxicosis, unspecified without thyrotoxic crisis or storm; E11.9 Type 2 diabetes mellitus without complications; Z79.84 Long term (current) use of oral hypoglycemic drugs; Z79.51 Long term (current) use of inhaled steroids; Z79.899 Other long term (current) drug therapy; Z90.710 Acquired absence of both cervix and uterus; Z88.5 Allergy status to narcotic agent
CPT/HCPCS: 31624; 36415; 71045; 71046; 71250; 80053; 80202; 81003; 83036; 83605; 84439; 84443; 85025; 86355; 86357; 86359; 86360; 87040; 87070; 87102; 87116; 87205; 87206; 87252; 87449; 87496; 87498; 87502; 87529; 87541; 87634; 87798; 88108; 88305; 89050; 93005; 93306; 94640; 94760; 96365; 96375; 99284

== ENCOUNTER → 2017-12-28 | Outpatient (CLI) | payer OTHER ==
[2017-12-28 12:57] LABS: ALT 135 U/L (9-52); AST 96 U/L (14-36); Albumin 4.4 g/dL (3.5-5.0); Alkaline Phosphatase 89 U/L (38-126); Anion Gap 16 mmol/L; Blood Urea Nitrogen 8 mg/dL (7-17); Calcium 10.1 mg/dL (8.4-10.2); Carbon Dioxide 21 mmol/L (22-30); Chloride 102 mmol/L (98-107); Glucose 243 mg/dL (74-99); Potassium 4.4 mmol/L (3.5-5.1); Sodium 139 mmol/L (137-145); Total Bilirubin 0.5 mg/dL (0.2-1.3); Total Protein 7.6 g/dL (6.3-8.2)
[2017-12-28 13:14] LABS: T4, Free (Free Thyroxine) 1.06 ng/dL (0.78-2.19)
== END | disposition home or self-care (01) ==
LOC: LABWHC1 12:27
PROVIDERS: ATTEND Internal Medicine Endocrinology, Diabetes & Metabolism
DX: E05.00 Thyrotoxicosis with diffuse goiter without thyrotoxic crisis or storm (principal)
CPT/HCPCS: 36415; 80053; 84439; 84443; 84445; 84480

== ENCOUNTER → 2017-12-29 | Outpatient (CLI) | payer OTHER ==
[2017-12-29 11:19] LABS: Basophils # (A) 0.1 k/uL (0-0.2); Basophils % (A) 1 %; Eosinophils # (A) 0.4 k/uL (0-0.7); Eosinophils % (A) 5 %; HGB 11.7 gm/dL (11.4-16.0); Lymphocytes % (A) 27 %; MCH 26.1 pg (25.0-35.0); MCHC 32.6 g/dL (31.0-37.0); MCV 80.1 fL (80.0-100.0); Monocytes # (A) 0.4 k/uL (0-1.0); Monocytes % (A) 6 %; Neutrophils # (A) 4.3 k/uL (1.3-7.7); Neutrophils % (A) 59 %; Platelet Count 208 k/uL (150-450); RBC 4.49 m/uL (3.80-5.40); RDW 15.2 % (11.5-15.5); WBC 7.3 k/uL (3.8-10.6)
[2017-12-29 12:49] LABS: Erythrocyte Sedimentation Rate 27 mm/hr (0-20)
[2017-12-29 16:40] LABS: Rheumatoid Factor 5 IU/mL (0-15)
[2017-12-30 13:25] LABS: IgG Subclass 3 25.5 mg/dL (11.0-85.0)
== END | disposition home or self-care (01) ==
LOC: LABWHC1 10:37
PROVIDERS: ATTEND Internal Medicine Critical Care Medicine
DX: J18.9 Pneumonia, unspecified organism (principal)
CPT/HCPCS: 36415; 82784; 82785; 82787; 85025; 85652; 86038; 86431

== ENCOUNTER → 2018-01-25 | Outpatient (CLI) | payer OTHER ==
[2018-01-25 17:13] LABS: T4, Free (Free Thyroxine) 1.01 ng/dL (0.78-2.19)
== END ==
LOC: LABWHC1 16:14
PROVIDERS: ATTEND Internal Medicine Endocrinology, Diabetes & Metabolism
DX: E05.90 Thyrotoxicosis, unspecified without thyrotoxic crisis or storm (principal)
CPT/HCPCS: 36415; 84439; 84443; 84480

== ENCOUNTER → 2018-03-08 | Outpatient (CLI) | payer OTHER ==
[2018-03-08 13:11] LABS: ALT 134 U/L (9-52); AST 136 U/L (14-36); Albumin 4.4 g/dL (3.5-5.0); Alkaline Phosphatase 73 U/L (38-126); Anion Gap 15 mmol/L; Blood Urea Nitrogen 7 mg/dL (7-17); Calcium 9.8 mg/dL (8.4-10.2); Carbon Dioxide 23 mmol/L (22-30); Chloride 104 mmol/L (98-107); Glucose 186 mg/dL (74-99); Potassium 4.7 mmol/L (3.5-5.1); Sodium 142 mmol/L (137-145); Total Bilirubin 0.4 mg/dL (0.2-1.3); Total Protein 7.1 g/dL (6.3-8.2)
== END | disposition home or self-care (01) ==
LOC: LABWHC1 11:46
PROVIDERS: ATTEND Internal Medicine Endocrinology, Diabetes & Metabolism
DX: E05.00 Thyrotoxicosis with diffuse goiter without thyrotoxic crisis or storm (principal)
CPT/HCPCS: 36415; 80053

== ENCOUNTER → 2018-04-06 | Outpatient (CLI) | payer OTHER ==
[2018-04-06 17:38] LABS: ALT 132 U/L (9-52); AST 123 U/L (14-36); Albumin 4.4 g/dL (3.5-5.0); Alkaline Phosphatase 95 U/L (38-126); Anion Gap 16 mmol/L; Blood Urea Nitrogen 14 mg/dL (7-17); Calcium 9.9 mg/dL (8.4-10.2); Carbon Dioxide 22 mmol/L (22-30); Chloride 101 mmol/L (98-107); Glucose 159 mg/dL (74-99); Potassium 4.5 mmol/L (3.5-5.1); Sodium 139 mmol/L (137-145); Total Bilirubin 0.3 mg/dL (0.2-1.3); Total Protein 7.2 g/dL (6.3-8.2)
[2018-04-06 17:49] LABS: T4, Free (Free Thyroxine) 1.05 ng/dL (0.78-2.19)
== END | disposition home or self-care (01) ==
LOC: LABWHC1 16:17
PROVIDERS: ATTEND Internal Medicine Endocrinology, Diabetes & Metabolism
DX: E05.00 Thyrotoxicosis with diffuse goiter without thyrotoxic crisis or storm (principal)
CPT/HCPCS: 36415; 80053; 84439; 84443; 84480

== ENCOUNTER → 2018-04-26 | Outpatient (CLI) | payer OTHER ==
--- NOTE | 2018-04-26 12:18 | US ---
EXAMINATION TYPE: US thyroid st tissue head/neck DATE OF EXAM: 04/26/2018 COMPARISON: CT chest December 01, 2017 CLINICAL HISTORY: E05.00 Thyrotoxicosis. Thyrotoxicosis GLAND SIZE: Right Lobe: 3.9 x 1.3 x 2.2 cm Overall Parenchyma: homogenous Left Lobe: 3.6 x 1.4 x 1.4 cm Overall Parenchyma: homogeneous Isthmus Thickness: 0.2 cm NODULES RIGHT: # of nodules measured on right: 0 LEFT: # of nodules measured on left: 1 1. 0.6 X 0.3 x 0.4 cm mixed nodule at the upper pole with well-defined margins; . This nodule is w ider than tall and shows no intranodular vascularity. Prior size: no prior ISTHMUS: # of nodules measured in the isthmus: 0 Somewhat small sized homogeneous thyroid without suspicious greater than 1 cm nodules IMPRESSION: As above
== END | disposition home or self-care (01) ==
LOC: RADUSWWP 10:56
PROVIDERS: ATTEND Internal Medicine Endocrinology, Diabetes & Metabolism
DX: E04.1 Nontoxic single thyroid nodule (principal)
CPT/HCPCS: 76536

== ENCOUNTER → 2018-05-10 | Outpatient (CLI) | payer OTHER ==
[2018-05-10 10:01] LABS: T4, Free (Free Thyroxine) 1.04 ng/dL (0.78-2.19)
== END | disposition home or self-care (01) ==
LOC: LABWHC1 08:48
PROVIDERS: ATTEND Internal Medicine Endocrinology, Diabetes & Metabolism
DX: E05.00 Thyrotoxicosis with diffuse goiter without thyrotoxic crisis or storm (principal)
CPT/HCPCS: 36415; 84439; 84443; 84480

== ENCOUNTER → 2018-06-18 | Outpatient (CLI) | payer OTHER ==
[2018-06-18 11:55] LABS: Basophils # (A) 0.1 k/uL (0-0.2); Basophils % (A) 1 %; Eosinophils # (A) 0.4 k/uL (0-0.7); Eosinophils % (A) 4 %; HGB 11.6 gm/dL (11.4-16.0); Hypochromasia Slight; Lymphocytes # (A) 2.2 k/uL (1.0-4.8); Lymphocytes % (A) 27 %; MCH 23.7 pg (25.0-35.0); MCHC 31.4 g/dL (31.0-37.0); MCV 75.5 fL (80.0-100.0); Mean Platelet Volume 7.3; Microcytosis Slight; Monocytes # (A) 0.5 k/uL (0-1.0); Monocytes % (A) 6 %; Neutrophils # (A) 4.9 k/uL (1.3-7.7); Neutrophils % (A) 60 %; Platelet Count 203 k/uL (150-450); RDW 15.8 % (11.5-15.5); WBC 8.2 k/uL (3.8-10.6)
[2018-06-18 12:26] LABS: ALT 151 U/L (9-52); AST 141 U/L (14-36); Albumin 4.5 g/dL (3.5-5.0); Alkaline Phosphatase 64 U/L (38-126); Anion Gap 14 mmol/L; Blood Urea Nitrogen 10 mg/dL (7-17); Calcium 10.3 mg/dL (8.4-10.2); Carbon Dioxide 25 mmol/L (22-30); Chloride 101 mmol/L (98-107); Glucose 141 mg/dL (74-99); Potassium 4.9 mmol/L (3.5-5.1); Sodium 140 mmol/L (137-145); Total Bilirubin 0.6 mg/dL (0.2-1.3); Total Protein 7.8 g/dL (6.3-8.2)
[2018-06-18 12:38] LABS: T4, Free (Free Thyroxine) 1.16 ng/dL (0.78-2.19)
== END | disposition home or self-care (01) ==
LOC: LABWHC1 10:36
PROVIDERS: ATTEND Internal Medicine Endocrinology, Diabetes & Metabolism
DX: E05.90 Thyrotoxicosis, unspecified without thyrotoxic crisis or storm (principal); K76.0 Fatty (change of) liver, not elsewhere classified
CPT/HCPCS: 36415; 80053; 82172; 82247; 82977; 83010; 83883; 84439; 84443; 84460; 84480; 85025

== ENCOUNTER → 2018-07-30 | Day surgery (SDC) | payer OTHER ==
[2018-07-28 10:00] VITALS: BMI 26.4
[~2018-07-30] MED LIST: LACTATED RINGERS 1,000 ML IV SCH; LIDOCAINE 1% 20 ML VIAL (10MG/ML) FOR IV START INTRADERMA ONE; LIDOCAINE 1% INJ 10MG/ML (20 ML MDV) ONE; PROPOFOL 10 MG/ML 20 ML VIAL IV ONE; fentaNYL (PF) 50 MCG/ML 2 ML AMP ONE
[2018-07-30 06:53] VITALS: TEMP 98.3
[2018-07-30 07:04] LABS: Glucose,Whole Blood 155 mg/dL (75-99)
--- NOTE | 2018-07-30 08:15 | P.PCN ---
Date of Procedure: 07/30/18 Procedure(s) Performed: Brief history: Patient is a pleasant 62-year-old white female, scheduled for an elective upper endoscopy as well as colonoscopy as a part of evaluation of long-standing history of GERD and prior history of colon polyps. Procedure performed: Esophagogastroduodenoscopy with biopsy Colonoscopy Preoperative diagnosis: Anesthesia: MAC Procedure: After informed consent was obtained from the patient was brought into the endoscopy unit and IV sedation was administered by anesthesia under continuous monitoring. Initially upper endoscopy was done. The Olympus GF 160 video endoscope was inserted inserted into the mouth and esophagus intubated without any difficulty and was gradually advanced into the stomach and duodenum and carefully examined. The bulb and second part of the duodenum appeared normal. The scope was then withdrawn into the stomach adequately insufflated with air and upon careful examination the antrum appeared normal. In the body and fundus of the stomach there are multiple gastric polyps measuring between 5 mm to 1 cm in size some of which were biopsied. The rest of the body, cardia and fundus appeared normal. The scope was then withdrawn into the esophagus. The GE junction was located at 40 cm to the incisors. It appeared regular with no erythema erosions or ulcerations. Rest of the esophagus appeared normal. Patient tolerated the procedure well. At this time the patient continued to remain sedation. Initial digital rectal examination was normal. Olympus CF 160 video colonoscope was then inserted into the rectum and gradually advanced to the cecum without any difficulty. Careful examination was performed as the scope was gradually being withdrawn. The prep was excellent. The cecum, ascending colon, transverse colon, descending colon, sigmoid colon and rectum appeared normal. Retroflexion was performed in the rectum and no lesions were noted. Patient tolerated the procedure well. Impression: 1. Upper endoscopy revealed multiple gastric polyps but no evidence of esophagitis or peptic ulcer disease 2. Colonoscopy was essentially within normal limits with no evidence of colitis or colorectal neoplasia Recommendations: Findings of this examination were discussed with the patient as well as her family. She was advised to have a repeat surveillance colonoscopy in 5 is removed because of the prior history of colon polyps
[2018-07-30 08:30] VITALS: BP 124/61; PULSE 79; RESP 16
== END ==
LOC: ORWHC2ENDO 06:23
PROVIDERS: ATTEND Internal Medicine Gastroenterology
DX: Z12.11 Encounter for screening for malignant neoplasm of colon (principal); K29.50 Unspecified chronic gastritis without bleeding; K31.7 Polyp of stomach and duodenum; Z86.010 Personal history of colon polyps; K21.9 Gastro-esophageal reflux disease without esophagitis; I47.1 Supraventricular tachycardia; J45.909 Unspecified asthma, uncomplicated; E11.9 Type 2 diabetes mellitus without complications; E05.90 Thyrotoxicosis, unspecified without thyrotoxic crisis or storm; Z79.84 Long term (current) use of oral hypoglycemic drugs; K76.0 Fatty (change of) liver, not elsewhere classified; Z79.899 Other long term (current) drug therapy; Z88.5 Allergy status to narcotic agent; Z88.8 Allergy status to other drugs, medicaments and biological substances
CPT/HCPCS: 88305; 43239; J2001; J3010; J2704; G0105

== ENCOUNTER → 2018-08-20 | Outpatient (CLI) | payer OTHER ==
[2018-08-20 17:36] LABS: T4, Free (Free Thyroxine) 1.2 ng/dL (0.80-1.80)
== END ==
LOC: LABWHC1 11:11
PROVIDERS: ATTEND Internal Medicine Endocrinology, Diabetes & Metabolism
DX: E05.90 Thyrotoxicosis, unspecified without thyrotoxic crisis or storm (principal)
CPT/HCPCS: 36415; 84439; 84443; 84480

== ENCOUNTER → 2018-12-16 | Outpatient (CLI) | payer OTHER ==
[2018-12-16 18:57] LABS: T4, Free (Free Thyroxine) 1.1 ng/dL (0.80-1.80)
== END | disposition home or self-care (01) ==
LOC: LABWHC1 11:00
PROVIDERS: ATTEND Internal Medicine Endocrinology, Diabetes & Metabolism
DX: E05.00 Thyrotoxicosis with diffuse goiter without thyrotoxic crisis or storm (principal)
CPT/HCPCS: 36415; 84439; 84443; 84480

== ENCOUNTER → 2019-01-26 | Outpatient (CLI) | payer OTHER ==
[2019-01-26 12:29] LABS: Basophils # (A) 0.1 k/uL (0-0.2); Basophils % (A) 1 %; Eosinophils # (A) 0.4 k/uL (0-0.7); Eosinophils % (A) 5 %; HCT 34.6 % (34.0-46.0); HGB 10.1 gm/dL (11.4-16.0); Hypochromasia Marked; Lymphocytes # (A) 1.7 k/uL (1.0-4.8); Lymphocytes % (A) 21 %; MCH 21.3 pg (25.0-35.0); MCHC 29.1 g/dL (31.0-37.0); MCV 73.1 fL (80.0-100.0); Mean Platelet Volume 9.1; Microcytosis Slight; Monocytes # (A) 0.5 k/uL (0-1.0); Monocytes % (A) 6 %; Neutrophils # (A) 5.3 k/uL (1.3-7.7); Neutrophils % (A) 66 %; Platelet Count 209 k/uL (150-450); RBC 4.73 m/uL (3.80-5.40); RDW 15.7 % (11.5-15.5); WBC 8.2 k/uL (3.8-10.6)
[2019-01-26 19:18] LABS: Vitamin D 25 Hydroxy 48.9 ng/mL (30.0-100.0)
[2019-01-26 19:27] LABS: T4, Free (Free Thyroxine) 1.1 ng/dL (0.80-1.80)
[2019-01-26 19:42] LABS: Albumin 4.6 g/dL (3.80-4.90); Albumin/Globulin Ratio 2.19 (1.60-3.17); Calcium 9.8 mg/dL (8.7-10.3); Globulin 2.1 g/dL (1.6-3.3); LDL Cholesterol,Calculated 116.4 mg/dL (0.0-131.0); Potassium 4.5 mmol/L (3.5-5.5); Total Bilirubin 0.5 mg/dL (0.3-1.2); Total Protein 6.7 g/dL (6.2-8.2); VLDL Calculation 38.6 mg/dL (5.00-40.00)
== END ==
LOC: LABWHC1 11:00
PROVIDERS: ATTEND Internal Medicine Endocrinology, Diabetes & Metabolism
DX: E11.9 Type 2 diabetes mellitus without complications (principal); E05.90 Thyrotoxicosis, unspecified without thyrotoxic crisis or storm; E04.1 Nontoxic single thyroid nodule
CPT/HCPCS: 36415; 80053; 80061; 82306; 84439; 84443; 84480; 85025

== ENCOUNTER → 2019-01-27 | Outpatient (CLI) | payer OTHER ==
--- NOTE | 2019-01-27 14:26 | CT ---
EXAMINATION TYPE: CT abdomen pelvis wo con DATE OF EXAM: 01/27/2019 COMPARISON: None INDICATION: LLQ PAIN DLP: 809 mGycm, Automated exposure control for dose reduction was used. CONTRAST: 0 mL of Isovue 300. Study performed without Oral Contrast TECHNIQUE: Axial images were obtained from above the diaphragm to the pubic rami in the axial plane a t 5 mm thick sections. Reconstructed images are reviewed on the computer in the coronal plane. FINDINGS: Limited CT sections are obtained the lung bases. The lung bases are clear. CT ABDOMEN: Liver: Normal Spleen: Normal Pancreas: Normal Adrenal glands: The adrenal glands are normal. Gallbladder: Normal Kidneys: No masses are evident. No hydronephrosis is present. No cysts are present. No renal stone s are evident. Aorta: Normal Inferior vena cava: Normal. CT PELVIS: Loops of bowel within the abdomen and pelvis are normal. Study is performed without oral contrast limiting bowel evaluation. Couple of scattered diverticuli are present without evidence of acute div erticulitis. No suspicious inflammatory change within the mesentery is evident. Appendix: Normal as visualized. Urinary bladder: Normal. Genitourinary structures: Uterus and ovaries are not identified. Osseous structures: No suspicious lytic or sclerotic lesions. IMPRESSIONS: 1. No suspicious abnormality to account for left lower quadrant pain.
[2019-01-27 16:26] LABS: Creatine Kinase MB 0.6 ng/mL (0.0-2.4); Troponin I <0.012 ng/mL (0.000-0.034)
[2019-01-27 23:07] LABS: Iron Saturation 7.3 (12.00-45.00)
== END ==
LOC: RADCTMAIN 13:47
PROVIDERS: ATTEND Nurse Practitioner Adult Health
DX: R10.32 Left lower quadrant pain (principal); D64.9 Anemia, unspecified; K76.9 Liver disease, unspecified; R53.83 Other fatigue; R11.0 Nausea
CPT/HCPCS: 36415; 74176; 82140; 82150; 82553; 83540; 83550; 84484

== ENCOUNTER 2019-02-07 07:29 | Day surgery (SDC) | payer OTHER ==
[2019-02-04 10:04] VITALS: BMI 26.6
[~2019-02-07 07:29] MED LIST changes: -LIDOCAINE 1% 20 ML VIAL (10MG/ML) FOR IV START INTRADERMA ONE; +LIDOCAINE 1% 20 ML VIAL (10MG/ML) FOR IV START INTRADERMA PRN; -LIDOCAINE 1% INJ 10MG/ML (20 ML MDV) ONE; -PROPOFOL 10 MG/ML 20 ML VIAL IV ONE; -fentaNYL (PF) 50 MCG/ML 2 ML AMP ONE
[2019-02-07 07:48] VITALS: TEMP 97.6
[2019-02-07] MEDS ORDERED: LIDOCAINE 1% 20 ML VIAL (10MG/ML) FOR IV START INTRADERMA ONE (07:48)
[2019-02-07] MEDS ORDERED: PROPOFOL 10 MG/ML 20 ML VIAL IV ONE (07:54)
[2019-02-07 07:55] LABS: Glucose,Whole Blood 211 mg/dL (75-99)
--- NOTE | 2019-02-07 08:49 | P.PCN ---
Date of Procedure: 02/07/19 Procedure(s) Performed: Procedures: 1. Esophagogastroduodenoscopy and biopsy. 2. Total colonoscopy. Preoperative diagnosis: Iron deficiency anemia and positive blood in the stools. Postoperative diagnosis: 1. Gastritis and numerous small/diminutive polyps in the gastric body but no ulcers or bleeding. 2. Upper Endoscopy, otherwise, within normal limits. 3. Multiple biopsies obtained from the duodenum, antrum, gastric body polyps and esophagus. 4. Colonoscopy within normal limits. Preparation: HalfLytely prep. Sedation: Was provided by anesthesia. Brief clinical history: The patient is a 63-year-old female who is scheduled for this evaluation because of finding of iron deficiency anemia. She had no overt bleeding, however, this her stools tested positive for blood. She has nonspecific abdominal symptoms. She had an upper endoscopy and colonoscopy last year part of a routine evaluation that did not show significant findings. Procedure: With the patient on her left lateral decubitus position and after informed consent and adequate sedation, I passed a Olympus-GIF H190 video upper endoscope through the cricopharyngeus down the esophagus. The esophagus appeared healthy. GE junction was around 38 cm from the incisors and there was no definite hiatal hernia. The endoscope was then passed into the stomach which was insufflated with air and inspected in detail including the retroflex view in the cardia. There was diffuse mottling and erythema most obvious in the antrum and prepyloric area and numerous small/diminutive polyps scattered in the gastric body but there were no ulcers or bleeding. Pyloric channel, duodenal bulb, post bulbar area and descending duodenum appeared within normal limits. I obtained biopsies from the duodenum, antrum and esophagus as well as the gastric body polyps then the endoscope was withdrawn and I proceeded to perform the colonoscopy. Perianal area did not show any fissures or fistulas. There were no masses felt on digital rectal examination. The Olympus CFH 190L video colonoscope was then inserted in the rectum in the usual fashion and advanced to the cecum. The mucosa appeared healthy. No polyps or tumors were seen or any obvious diverticular disease or other pathology or any evidence of bleeding. I retroflexed the endoscope in the rectum before the endoscope was withdrawn. The patient tolerated the procedure well. Plan: The patient was reassured. Consideration can be given for a capsule endoscopy if she continues to manifest iron deficiency anemia and evidence of blood in her stools. She will follow-up with you as planned.
[2019-02-07 08:51] VITALS: RESP 16
[2019-02-07 09:05] VITALS: BP 153/80; PULSE 89
[2019-02-07 09:24] LABS: Glucose,Whole Blood 194 mg/dL (75-99)
== END 2019-02-07 09:39 | disposition home or self-care (01) ==
LOC: ORWHC2ENDO 07:29
DX: K31.7 Polyp of stomach and duodenum (principal); K29.50 Unspecified chronic gastritis without bleeding; D50.9 Iron deficiency anemia, unspecified; K92.1 Melena; K21.9 Gastro-esophageal reflux disease without esophagitis; E11.9 Type 2 diabetes mellitus without complications; K76.0 Fatty (change of) liver, not elsewhere classified; M19.90 Unspecified osteoarthritis, unspecified site; E07.9 Disorder of thyroid, unspecified; J45.909 Unspecified asthma, uncomplicated; G47.33 Obstructive sleep apnea (adult) (pediatric); Z99.89 Dependence on other enabling machines and devices; Z79.51 Long term (current) use of inhaled steroids; Z79.84 Long term (current) use of oral hypoglycemic drugs; Z79.899 Other long term (current) drug therapy; Z88.5 Allergy status to narcotic agent; Z88.8 Allergy status to other drugs, medicaments and biological substances
CPT/HCPCS: 88305; 45378; 43239; J2704

== ENCOUNTER → 2019-05-07 | Outpatient (CLI) | payer OTHER ==
[2019-05-07 11:27] LABS: Anisocytosis Slight; Basophils # (A) 0.1 k/uL (0-0.2); Basophils % (A) 1 %; Eosinophils # (A) 0.4 k/uL (0-0.7); Eosinophils % (A) 7 %; HCT 34.7 % (34.0-46.0); HGB 10.6 gm/dL (11.4-16.0); Hypochromasia Slight; Lymphocytes # (A) 1.7 k/uL (1.0-4.8); Lymphocytes % (A) 27 %; MCH 23.6 pg (25.0-35.0); MCHC 30.6 g/dL (31.0-37.0); Microcytosis Slight; Monocytes # (A) 0.4 k/uL (0-1.0); Monocytes % (A) 6 %; Neutrophils # (A) 3.6 k/uL (1.3-7.7); Neutrophils % (A) 57 %; Platelet Count 161 k/uL (150-450); WBC 6.3 k/uL (3.8-10.6)
[2019-05-07 16:36] LABS: African American GFR (CKD) 90.3 (60.0-200.0); Albumin 4.3 g/dL (3.80-4.90); Albumin/Globulin Ratio 1.87 (1.60-3.17); Anion Gap 12.9 mmol/L (4.00-12.00); BUN/Creat Ratio 12.5 Ratio (12.00-20.00); Calcium 9.4 mg/dL (8.7-10.3); Carbon Dioxide 23.1 mmol/L (21.6-31.8); Globulin 2.3 g/dL (1.6-3.3); Potassium 4.4 mmol/L (3.5-5.5); Total Bilirubin 0.4 mg/dL (0.3-1.2); Total Protein 6.6 g/dL (6.2-8.2)
[2019-05-07 16:50] LABS: Iron Saturation 7.28 (12.00-45.00)
== END | disposition home or self-care (01) ==
LOC: LABWHC1 11:01
PROVIDERS: ATTEND Nurse Practitioner Adult Health
DX: D50.9 Iron deficiency anemia, unspecified (principal)
CPT/HCPCS: 36415; 80053; 82728; 83540; 83550; 85025

== ENCOUNTER → 2019-07-28 | Outpatient (CLI) | payer OTHER ==
--- NOTE | 2019-07-28 15:03 | FL ---
EXAMINATION TYPE: FL small bowel follow through DATE OF EXAM: 07/28/2019 1:01 PM COMPARISON: NONE HISTORY: D50.9 iron deficiency anemia The patient ingested thin liquid barium without difficulty. Small bowel follow-through was performed with transit time of 240 minutes. Small bowel loops appear to be of normal caliber and demonstrate normal mucosal fold pattern. No evidence for intrinsic or extrinsic mass. No evidence for mucosal a bnormality. I do not see evidence for Crohn's disease. Normal-appearing terminal ileum. IMPRESSION: Unremarkable study
== END | disposition home or self-care (01) ==
LOC: RADFLMAIN 07:53
PROVIDERS: ATTEND Nurse Practitioner
DX: D50.9 Iron deficiency anemia, unspecified (principal)
CPT/HCPCS: 74250

== ENCOUNTER → 2019-08-01 | Outpatient (CLI) | payer OTHER ==
--- NOTE | 2019-08-01 11:41 | US ---
EXAMINATION TYPE: US thyroid st tissue head/neck DATE OF EXAM: 08/01/2019 COMPARISON: US 04/26/2018 CLINICAL HISTORY: E04.1 Nontoxic single thyroid nodule. Hyperthyroidism, thyroid nodule GLAND SIZE: Right Lobe: 4.7 x 1.0 x 1.8 cm Overall Parenchyma: homogenous Left Lobe: 3.8 x 1.3 x 1.1 cm Overall Parenchyma: homogeneous Isthmus Thickness: 0.2 cm NODULES RIGHT: # of nodules measured on right: 0 LEFT: # of nodules measured on left: 1 1. 0.6 X 0.4 x 0.4 cm hypoechoic mixed nodule at the upper pole with well-defined margins. This nod ule is wider than tall and shows no intranodular vascularity. There is internal ring down artifact james ggesting colloid in a benign etiology. Prior size: 0.6 x 0.3 x 0.4 cm ISTHMUS: # of nodules measured in the isthmus: 0 Bilateral neck scanned, no evidence of lymphadenopathy. IMPRESSION: Similar size of the cystic left thyroid nodule with findings suggesting a benign colloid cyst.
[2019-08-01 12:57] LABS: T4, Free (Free Thyroxine) 1.04 ng/dL (0.78-2.19)
== END | disposition home or self-care (01) ==
LOC: RADUSWWP 10:52
PROVIDERS: ATTEND Internal Medicine Endocrinology, Diabetes & Metabolism
DX: E04.1 Nontoxic single thyroid nodule (principal); E05.90 Thyrotoxicosis, unspecified without thyrotoxic crisis or storm
CPT/HCPCS: 36415; 76536; 84439; 84443; 84480

== ENCOUNTER → 2019-08-18 | Outpatient (CLI) | payer OTHER ==
[2019-08-18 12:44] LABS: Basophils # (A) 0.1 k/uL (0-0.2); Basophils % (A) 1 %; Eosinophils # (A) 4.6 k/uL (0-0.7); Eosinophils % (A) 40 %; HCT 40.5 % (34.0-46.0); HGB 13.4 gm/dL (11.4-16.0); Lymphocytes # (A) 2.3 k/uL (1.0-4.8); Lymphocytes % (A) 20 %; MCH 28.3 pg (25.0-35.0); MCV 85.9 fL (80.0-100.0); Mean Platelet Volume 7.1; Monocytes # (A) 0.5 k/uL (0-1.0); Monocytes % (A) 4 %; Neutrophils # (A) 3.9 k/uL (1.3-7.7); Neutrophils % (A) 34 %; Platelet Count 212 k/uL (150-450); RBC 4.72 m/uL (3.80-5.40); RDW 15.4 % (11.5-15.5); WBC 11.4 k/uL (3.8-10.6)
[2019-08-18 13:18] LABS: Poikilocytosis (M) Present
[2019-08-18 20:55] LABS: % Iron Saturation 11.89 (12.00-45.00); ALT 78 U/L (8-44); AST 65 U/L (13-35); Albumin/Globulin Ratio 2.24 (1.60-3.17); Alkaline Phosphatase 67 U/L (41-126); Bilirubin, Conjugated <0.20 mg/dL (0.20-0.40); Globulin 2.1 g/dL (1.6-3.3); Iron 46 ug/dL (50-170); Total Bilirubin 0.4 mg/dL (0.3-1.2); Total Iron Binding Capacity 387 ug/dL (228-460); Total Protein 6.8 g/dL (6.2-8.2)
[2019-08-18 21:01] LABS: Ferritin 33.3 ng/mL (10.0-291.0)
== END | disposition home or self-care (01) ==
LOC: LABWHC1 10:54
PROVIDERS: ATTEND Nurse Practitioner
DX: D50.9 Iron deficiency anemia, unspecified (principal); K76.0 Fatty (change of) liver, not elsewhere classified
CPT/HCPCS: 36415; 80076; 82728; 83540; 83550; 85025

== ENCOUNTER → 2019-12-07 | Outpatient (CLI) | payer MEDICARE, BC ==
[2019-12-07 16:25] LABS: Basophils # (A) 0.1 k/uL (0-0.2); Basophils % (A) 1 %; Eosinophils # (A) 0.5 k/uL (0-0.7); Eosinophils % (A) 6 %; HCT 41.3 % (34.0-46.0); HGB 13.8 gm/dL (11.4-16.0); Lymphocytes # (A) 3.1 k/uL (1.0-4.8); Lymphocytes % (A) 34 %; MCH 29.1 pg (25.0-35.0); MCHC 33.4 g/dL (31.0-37.0); MCV 87.1 fL (80.0-100.0); Mean Platelet Volume 9.2; Monocytes # (A) 0.5 k/uL (0-1.0); Monocytes % (A) 6 %; Neutrophils # (A) 4.7 k/uL (1.3-7.7); Neutrophils % (A) 52 %; Platelet Count 197 k/uL (150-450); RBC 4.74 m/uL (3.80-5.40); RDW 12.8 % (11.5-15.5); WBC 9.1 k/uL (3.8-10.6)
[2019-12-08 01:57] LABS: % Iron Saturation 22.08 (12.00-45.00); Albumin 4.6 g/dL (3.80-4.90); Bilirubin, Conjugated 0.2 mg/dL (0.20-0.40); Bilirubin,Unconjugated 0.3 mg/dL; Globulin 2.3 g/dL (1.6-3.3); Total Bilirubin 0.5 mg/dL (0.2-1.2); Total Protein 6.9 g/dL (6.2-8.2)
== END | disposition home or self-care (01) ==
LOC: LABWHC1 14:56
PROVIDERS: ATTEND Nurse Practitioner
DX: D50.9 Iron deficiency anemia, unspecified (principal); K76.0 Fatty (change of) liver, not elsewhere classified
CPT/HCPCS: 36415; 80076; 82728; 83540; 83550; 85025

== ENCOUNTER → 2020-03-19 | Outpatient (CLI) | payer MEDICARE, BC ==
[2020-03-19 12:06] LABS: Basophils # (A) 0.1 k/uL (0-0.2); Basophils % (A) 1 %; Eosinophils # (A) 0.4 k/uL (0-0.7); Eosinophils % (A) 5 %; HCT 39.8 % (34.0-46.0); HGB 13.7 gm/dL (11.4-16.0); Lymphocytes # (A) 2.6 k/uL (1.0-4.8); Lymphocytes % (A) 33 %; MCH 30.1 pg (25.0-35.0); MCHC 34.3 g/dL (31.0-37.0); MCV 87.7 fL (80.0-100.0); Mean Platelet Volume 8.7; Monocytes # (A) 0.4 k/uL (0-1.0); Monocytes % (A) 5 %; Neutrophils # (A) 4.4 k/uL (1.3-7.7); Neutrophils % (A) 55 %; Platelet Count 192 k/uL (150-450); RBC 4.54 m/uL (3.80-5.40); RDW 12.9 % (11.5-15.5)
[2020-03-19 18:34] LABS: African American GFR (CKD) 105.4 (60.0-200.0); Albumin 4.6 g/dL (3.80-4.90); BUN/Creat Ratio 12.86 Ratio (12.00-20.00); Calcium 9.7 mg/dL (8.7-10.3); Chol/HDL Ratio 4.52; Globulin 2.3 g/dL (1.6-3.3); LDL Cholesterol,Calculated 128.8 mg/dL (0.0-131.0); Non-African American GFR(CKD) 90.9 (60.0-200.0); Potassium 4.4 mmol/L (3.5-5.5); Total Bilirubin 0.6 mg/dL (0.2-1.2); Total Protein 6.9 g/dL (6.2-8.2); VLDL Calculation 40.2 mg/dL (5.00-40.00)
[2020-03-19 22:29] LABS: Hemoglobin A1C 6.2 % (4.0-6.0)
== END ==
LOC: LABWHC1 10:51
PROVIDERS: ATTEND Family Medicine
DX: Z00.00 Encounter for general adult medical examination without abnormal findings (principal); E11.9 Type 2 diabetes mellitus without complications; E78.00 Pure hypercholesterolemia, unspecified
CPT/HCPCS: 36415; 80053; 80061; 82550; 83036; 85025

== ENCOUNTER → 2020-07-13 | Outpatient (CLI) | payer MEDICARE, BC ==
--- NOTE | 2020-07-13 17:45 | US ---
EXAMINATION TYPE: US thyroid st tissue head/neck DATE OF EXAM: 07/13/2020 COMPARISON: US CLINICAL HISTORY: E04.1 nontoxic single thyroid nodule GLAND SIZE: Right Lobe: 4.1 x 1.6 x 1.5 cm Overall Parenchyma: homogenous Left Lobe: 3.5 x 1.4 x 1.5 cm Overall Parenchyma: homogeneous Isthmus Thickness: 0.2 cm NODULES RIGHT: # of nodules measured on right: 1 1. 0.1 x 0.1 x 0.1cm hypoechoic mixed nodule at the mid pole with well-defined margins; present wit h microcalcifications. This nodule is wide as is tall and shows no intranodular vascularity. LEFT: # of nodules measured on left: 2 largest of multiple 1. 0.6 X 0.4 x 0.4 cm hypoechoic mixed nodule at the upper pole with well-defined margins; present with microcalcifications. This nodule is wide as is tall and shows no intranodular vascularity. Prior size: 0.6 x 0.4 x 0.4 cm 2. 0.4 X 0.3 x 0.2 cm hypoechoic mixed nodule at the lower pole with well-defined margins. This nod ule is wider than tall and shows no intranodular vascularity. ISTHMUS: # of nodules measured in the isthmus: 0 Bilateral neck scanned: inferior to right thyroid is hyperechoic oval nodule (possible lymph node) = 0.6 x 0.4 x 0.3cm. Compatible with shotty adenopathy. No pathologic adenopathy. IMPRESSION: Subcentimeter thyroid nodules bilaterally. No nodule greater than 1 cm.
[2020-07-13 18:17] LABS: T4, Free (Free Thyroxine) 1.18 ng/dL (0.78-2.19)
== END | disposition home or self-care (01) ==
LOC: RADUSWWP 16:07
PROVIDERS: ATTEND Internal Medicine Endocrinology, Diabetes & Metabolism
DX: E04.2 Nontoxic multinodular goiter (principal); E05.90 Thyrotoxicosis, unspecified without thyrotoxic crisis or storm
CPT/HCPCS: 76536; 84439; 84443; 84480

== ENCOUNTER → 2020-11-09 | Outpatient (CLI) | payer MEDICARE, BC ==
[2020-11-09 17:26] LABS: African American GFR (CKD) 89.7 (60.0-200.0); Albumin 4.6 g/dL (3.80-4.90); Albumin/Globulin Ratio 2.3 (1.60-3.17); Anion Gap 12.7 mmol/L (4.00-12.00); BUN/Creat Ratio 11.25 Ratio (12.00-20.00); Calcium 9.8 mg/dL (8.7-10.3); Carbon Dioxide 23.3 mmol/L (21.6-31.8); Chol/HDL Ratio 3.9; LDL Cholesterol,Calculated 116.4 mg/dL (0.0-131.0); Non-African American GFR(CKD) 77.4 (60.0-200.0); Potassium 4.6 mmol/L (3.5-5.5); Total Bilirubin 0.4 mg/dL (0.2-1.2); Total Protein 6.6 g/dL (6.2-8.2); VLDL Calculation 31.6 mg/dL (5.00-40.00)
[2020-11-09 17:34] LABS: T4, Free (Free Thyroxine) 1.3 ng/dL (0.80-1.80)
[2020-11-09 18:43] LABS: Urine Creatinine 53.1 mg/dL
[2020-11-09 19:20] LABS: Hemoglobin A1C 7.2 % (4.0-6.0)
== END | disposition home or self-care (01) ==
LOC: LABWHC1 10:17
PROVIDERS: ATTEND Internal Medicine Endocrinology, Diabetes & Metabolism
DX: E11.9 Type 2 diabetes mellitus without complications (principal); E04.2 Nontoxic multinodular goiter
CPT/HCPCS: 36415; 80053; 80061; 82043; 82570; 83036; 84439; 84443

== ENCOUNTER → 2021-03-13 | Outpatient (CLI) | payer MEDICARE, BC ==
--- NOTE | 2021-03-13 13:28 | US ---
EXAMINATION TYPE: US thyroid st tissue head/neck DATE OF EXAM: 03/13/2021 COMPARISON: Prior thyroid ultrasound July 13, 2020 CLINICAL HISTORY: E11.65 Type 2 diabetes mellitus with hyperglycemia. GLAND SIZE: Right Lobe: 4.9 x 1.3 x 1.8 cm Overall Parenchyma: homogenous Left Lobe: 4.1 x 1.3 x 1.2 cm Overall Parenchyma: homogeneous Isthmus Thickness: 0.1 cm NODULES RIGHT: # of nodules measured on right: 0 LEFT: # of nodules measured on left: 2 subcentimeter nodules seen ISTHMUS: # of nodules measured in the isthmus: 0 Bilateral neck scanned, inferior to right thyroid lobe is hyperechoic area measuring 0.7 x 0.4 x 0.5c m, possible lymph node. Persistent homogeneous normal-sized thyroid with small subcentimeter nodules bilaterally redemonstrat ed. Hyperechoic 7 x 5 x 4 mm oval structure posterior to the inferior margin right thyroid lobe could reflect normal parathyroid gland on the current study. IMPRESSION: As above. No new or enlarging greater than 1 cm nodules.
== END | disposition home or self-care (01) ==
LOC: RADUSWWP 12:24
PROVIDERS: ATTEND Internal Medicine Endocrinology, Diabetes & Metabolism
DX: E04.2 Nontoxic multinodular goiter (principal); E11.65 Type 2 diabetes mellitus with hyperglycemia
CPT/HCPCS: 76536

== ENCOUNTER → 2021-06-21 | Outpatient (CLI) | payer MEDICARE, BC ==
[2021-06-21 19:04] LABS: Basophils % (A) 1.2 %; Eosinophils # (A) 0.55 X 10*3/uL (0.04-0.35); Eosinophils % (A) 6.6 %; HCT 42.2 % (37.2-46.3); HGB 13.7 g/dL (12.0-15.0); Lymphocytes # (A) 2.89 X 10*3/uL (0.90-5.00); Lymphocytes % (A) 34.4 %; MCHC 32.5 g/dL (32.0-37.0); MCV 89.2 fL (80.0-97.0); Mean Platelet Volume 11.8 fL (9.5-12.2); Monocytes # (A) 0.59 X 10*3/uL (0.20-1.00); Neutrophils # (A) 4.23 X 10*3/uL (1.80-7.70); Neutrophils % (A) 50.4 %; Platelet Count 220 X 10*3/uL (140-440); RBC 4.73 X 10*6/uL (4.10-5.20); RDW 12.3 % (11.5-14.5); WBC 8.39 X 10*3/uL (4.50-10.00)
[2021-06-21 19:55] LABS: Hemoglobin A1C 7.2 % (4.0-6.0)
[2021-06-21 22:45] LABS: % Iron Saturation 18.66 (12.00-45.00); Albumin 4.9 g/dL (3.80-4.90); Albumin/Globulin Ratio 1.96 (1.60-3.17); Anion Gap 10.7 mmol/L (4.00-12.00); BUN/Creat Ratio 12.5 Ratio (12.00-20.00); Calcium 10.4 mg/dL (8.7-10.3); Carbon Dioxide 27.3 mmol/L (21.6-31.8); Chol/HDL Ratio 4.09; Globulin 2.5 g/dL (1.6-3.3); LDL Cholesterol,Calculated 122.8 mg/dL (0.0-131.0); Non-African American GFR(CKD) 76.8 (60.0-200.0); Potassium 4.6 mmol/L (3.5-5.5); Total Bilirubin 0.5 mg/dL (0.3-1.2); Total Protein 7.4 g/dL (6.2-8.2); VLDL Calculation 44.2 mg/dL (5.00-40.00)
[2021-06-21 22:54] LABS: T4, Free (Free Thyroxine) 1.2 ng/dL (0.80-1.80)
[2021-06-21 22:55] LABS: Ferritin 55.6 ng/mL (10.0-291.0)
[2021-06-22 00:32] LABS: Urine Creatinine 30.2 mg/dL
== END | disposition home or self-care (01) ==
LOC: LABWHC1 10:29
PROVIDERS: ATTEND Internal Medicine Endocrinology, Diabetes & Metabolism
DX: Z00.01 Encounter for general adult medical examination with abnormal findings (principal); D50.9 Iron deficiency anemia, unspecified; E11.65 Type 2 diabetes mellitus with hyperglycemia; I10 Essential (primary) hypertension; E78.2 Mixed hyperlipidemia; E04.1 Nontoxic single thyroid nodule; E05.90 Thyrotoxicosis, unspecified without thyrotoxic crisis or storm
CPT/HCPCS: 36415; 80053; 80061; 82043; 82570; 82607; 82728; 83036; 83540; 83550; 84439; 84443; 84480; 85025

== ENCOUNTER → 2021-10-23 | Outpatient (CLI) | payer MEDICARE, BC ==
[~2021-10-23] MED LIST changes: -LACTATED RINGERS 1,000 ML IV SCH; -LIDOCAINE 1% 20 ML VIAL (10MG/ML) FOR IV START INTRADERMA PRN; +SODIUM CHLORIDE 0.9% 50 ML IVPB ONE; +SODIUM CHLORIDE 0.9% 500 ML 500 ML in EMPTY BAG 1 BAG IV PRN; +SOTROVIMAB (EUA) 500 MG in SODIUM CHLORIDE 0.9% 100 ML IVPB ONE
[2021-10-23 14:18] VITALS: TEMP 98.4
[2021-10-23 15:01] VITALS: BP 109/67; PULSE 106; RESP 16
== END ==
LOC: PROCWHC3 13:51
PROVIDERS: ATTEND Family Medicine
DX: U07.1 COVID-19 (principal); E11.9 Type 2 diabetes mellitus without complications; Z88.5 Allergy status to narcotic agent; Z88.8 Allergy status to other drugs, medicaments and biological substances
CPT/HCPCS: 96360; Q0247; M0247

== ENCOUNTER → 2021-11-19 | Outpatient (CLI) | payer MEDICARE, BC ==
--- NOTE | 2021-11-20 17:20 | US ---
EXAMINATION TYPE: US thyroid st tissue head/neck DATE OF EXAM: 11/19/2021 COMPARISON: US 2020 CLINICAL HISTORY: E04.1 NONTOXIC SINGLE THYROID NODULE. Thyroid nodules GLAND SIZE: Right Lobe: 4.2 x 1.4 x 2.0 cm Overall Parenchyma: homogenous Left Lobe: 3.8 x 1.3 x 1.3 cm Overall Parenchyma: homogeneous Isthmus Thickness: 0.1 cm NODULES RIGHT: # of nodules measured on right: 0 LEFT: # of nodules measured on left: multiple subcentimeter nodules ISTHMUS: # of nodules measured in the isthmus: 0 Bilateral neck scanned, right neck 0.7 x 0.4 x 0.5cm hyperechoic area inferior to right lobe. Parathy roid could be considered within the differential. Follow-up can be performed. IMPRESSION: Subcentimeter nodules within the left lobe thyroid.
== END | disposition home or self-care (01) ==
LOC: RADUSWWP 16:00
PROVIDERS: ATTEND Family Medicine
DX: E04.2 Nontoxic multinodular goiter (principal)
CPT/HCPCS: 76536

== ENCOUNTER → 2022-08-25 | Outpatient (CLI) | payer MEDICARE, BC ==
[2022-08-25 18:03] LABS: Basophils # (A) 0.06 X 10*3/uL (0.00-0.10); Basophils % (A) 0.8 %; Eosinophils # (A) 1.21 X 10*3/uL (0.04-0.35); Eosinophils % (A) 15.9 %; HCT 39.6 % (37.2-46.3); HGB 12.9 g/dL (12.0-15.0); Immature Grans, Automated 0.3 %; Lymphocytes # (A) 2.61 X 10*3/uL (0.90-5.00); Lymphocytes % (A) 34.3 %; MCH 28.4 pg (27.0-32.0); MCHC 32.6 g/dL (32.0-37.0); Mean Platelet Volume 12.4 fL (9.5-12.2); Monocytes # (A) 0.55 X 10*3/uL (0.20-1.00); Monocytes % (A) 7.2 %; NRBC Per 100 WBC 0 /100 WBCS (0.0-0.0); Neutrophils # (A) 3.17 X 10*3/uL (1.80-7.70); Neutrophils % (A) 41.5 %; Platelet Count 176 X 10*3/uL (140-440); RBC 4.55 X 10*6/uL (4.10-5.20); RDW 12.2 % (11.5-14.5); WBC 7.62 X 10*3/uL (4.50-10.00)
[2022-08-25 18:44] LABS: BUN/Creat Ratio 8.42 Ratio (12.00-20.00)
[2022-08-25 18:45] LABS: African American GFR (CKD) 81.7 (60.0-200.0); Albumin 4.2 g/dL (3.8-4.9); Albumin/Globulin Ratio 1.69 (1.60-3.17); Anion Gap 11.5 mmol/L (10.00-18.00); Blood Urea Nitrogen 7.2 mg/dL (9.0-27.0); Calcium 9.7 mg/dL (8.7-10.3); Carbon Dioxide 24.6 mmol/L (20.0-27.5); Globulin 2.5 g/dL (1.6-3.3); Non-African American GFR(CKD) 70.5 (60.0-200.0); Potassium 4.6 mmol/L (3.5-5.5); Total Bilirubin 0.5 mg/dL (0.30-1.20); Total Protein 6.6 g/dL (6.2-8.2)
== END | disposition home or self-care (01) ==
LOC: LABWHC1 10:59
PROVIDERS: ATTEND Internal Medicine Gastroenterology
DX: K76.0 Fatty (change of) liver, not elsewhere classified (principal)
CPT/HCPCS: 36415; 80053; 85025

== ENCOUNTER → 2023-03-21 | Outpatient (CLI) | payer MEDICARE, BC | END | disposition home or self-care (01) | LOC: LABWHC1 10:24 | PROVIDERS: ATTEND Family Medicine | DX: E11.9 Type 2 diabetes mellitus without complications (principal) | CPT/HCPCS: 36415; 84681; 86337 ==

== ENCOUNTER → 2023-08-06 | Outpatient (CLI) | payer MEDICARE, BC ==
[2023-08-06 16:40] LABS: BUN/Creat Ratio 10.56 Ratio (12.00-20.00); Blood Urea Nitrogen 9.5 mg/dL (9.0-27.0); Chol/HDL Ratio 3.75 Ratio; Glucose 130 mg/dL (70-110); LDL Cholesterol,Calculated 129.8 mg/dL (0.0-131.0)
[2023-08-06 16:41] LABS: ALT 41 U/L (8-44); AST 34 U/L (13-35); Albumin 4.6 g/dL (3.8-4.9); Alkaline Phosphatase 81 U/L (41-126); Calcium 10.5 mg/dL (8.7-10.3); Carbon Dioxide 26.5 mmol/L (21.6-31.8); Chloride 102 mmol/L (96-109); Globulin 2.7 g/dL (1.6-3.3); Sodium 141 mmol/L (135-145); Total Bilirubin 0.5 mg/dL (0.3-1.2); Total Protein 7.3 g/dL (6.2-8.2)
[2023-08-06 16:50] LABS: Basophils # (A) 0.08 X 10*3/uL (0.00-0.10); Basophils % (A) 1.2 %; Eosinophils # (A) 0.33 X 10*3/uL (0.04-0.35); Eosinophils % (A) 4.8 %; HCT 42.6 % (37.2-46.3); HGB 13.9 g/dL (12.0-15.0); Lymphocytes % (A) 33.5 %; MCH 28.1 pg (27.0-32.0); MCHC 32.6 g/dL (32.0-37.0); MCV 86.2 FL (80.0-97.0); Mean Platelet Volume 12.4 FL (9.5-12.2); Monocytes # (A) 0.49 X 10*3/uL (0.20-1.00); Monocytes % (A) 7.1 %; NRBC Per 100 WBC 0 X 10*3/uL (0.00-0.01); Neutrophils # (A) 3.66 X 10*3/uL (1.80-7.70); Neutrophils % (A) 53.3 %; Platelet Count 205 X 10*3/uL (140-440); RBC 4.94 X 10*6/uL (4.10-5.20); RDW 12.9 % (11.5-14.5); WBC 6.87 X 10*3/uL (4.50-10.00)
== END | disposition home or self-care (01) ==
LOC: LABWHC1 10:38
PROVIDERS: ATTEND Family Medicine
DX: E78.5 Hyperlipidemia, unspecified (principal)
CPT/HCPCS: 36415; 80053; 80061; 85025

== ENCOUNTER → 2024-11-30 | Outpatient (CLI) | payer MEDICARE, BC ==
[2024-11-30 18:21] LABS: Basophils # (A) 0.12 X 10*3/uL (0.00-0.10); Basophils % (A) 1.4 %; Eosinophils # (A) 0.64 X 10*3/uL (0.04-0.35); Eosinophils % (A) 7.6 %; HCT 41.2 % (37.2-46.3); HGB 13.6 g/dL (12.0-15.0); Lymphocytes % (A) 32.1 %; MCH 27.4 pg (27.0-32.0); MCV 82.9 FL (80.0-97.0); Mean Platelet Volume 12.2 FL (9.5-12.2); Monocytes # (A) 0.62 X 10*3/uL (0.20-1.00); Monocytes % (A) 7.4 %; NRBC Per 100 WBC 0 X 10*3/uL (0.00-0.01); Neutrophils # (A) 4.31 X 10*3/uL (1.80-7.70); Neutrophils % (A) 51.4 %; Platelet Count 226 X 10*3/uL (140-440); RBC 4.97 X 10*6/uL (4.10-5.20); RDW 13.3 % (11.5-14.5)
[2024-11-30 18:34] LABS: ALT 45 U/L (8-44); AST 40 U/L (13-35); Albumin 4.5 g/dL (3.8-4.9); Albumin/Globulin Ratio 1.61 Ratio (1.60-3.17); Alkaline Phosphatase 70 U/L (41-126); BUN/Creat Ratio 10.89 Ratio (12.00-20.00); Blood Urea Nitrogen 9.8 mg/dL (9.0-27.0); Calcium 9.7 mg/dL (8.7-10.3); Carbon Dioxide 24.1 mmol/L (21.6-31.8); Chloride 102 mmol/L (96-109); Globulin 2.8 g/dL (1.6-3.3); Glucose 165 mg/dL (70-110); Potassium 4.4 mmol/L (3.5-5.5); Sodium 138 mmol/L (135-145); Total Bilirubin 0.4 mg/dL (0.3-1.2); Total Protein 7.3 g/dL (6.2-8.2)
== END | disposition home or self-care (01) ==
LOC: LABWHC1 14:26
PROVIDERS: ATTEND Internal Medicine Gastroenterology
DX: K76.0 Fatty (change of) liver, not elsewhere classified (principal); E04.1 Nontoxic single thyroid nodule; L40.0 Psoriasis vulgaris; L40.59 Other psoriatic arthropathy; Z79.899 Other long term (current) drug therapy
CPT/HCPCS: 36415; 80053; 81596; 84443; 84481; 85025

== ENCOUNTER → 2025-04-07 | Outpatient (CLI) | payer MEDICARE, BC ==
--- NOTE | 2025-04-07 14:54 | US ---
EXAMINATION TYPE: US thyroid st tissue head/neck DATE OF EXAM: 04/07/2025 COMPARISON: Multiple thyroid ultrasounds with most recent 11/06/2022 CLINICAL INDICATION: Female, 69 years old with history of E04.1 NONTOXIC SINGLE THYROID NODULE; Lyn ent denies any changes from prior TECHNIQUE: Grayscale and color Doppler imaging of the thyroid gland. FINDINGS: GLAND SIZE: Right Lobe: 4.9 x 1.6 x 1.5 cm Overall Parenchyma: homogeneous Left Lobe: 4.4 x 1.2 x 1.4 cm Overall Parenchyma: homogeneous Isthmus Thickness: 0.1 cm NODULES RIGHT: # of nodules measured on right: 0 LEFT: # of nodules measured on left: 0 Subcentimeter cyst noted. TR1. ISTHMUS: # of nodules measured in the isthmus: 0 Bilateral neck scanned, no evidence of lymphadenopathy. IMPRESSION: Stable subcentimeter left thyroid lobe TR 1 cystic nodule. No new or enlarging thyroid nodules. Highest TI-RADS level nodule reported: ACR TI-RADS LEVEL: TI-RADS 1 - BENIGN: No FNA TI-RADS assessment score and recommendation for follow-up based on appropriate scoring and treatment protocols. TR1 Benign No FNA TR2 Not suspicious No FNA TR3: If nodule size is ? 2.5 cm, FNA is recommended. If nodule size is ? 1.5 cm, follow-up imaging at 1, 3, and 5 years is recommended. TR4: If nodule size is ? 1.5 cm, FNA is recommended. If nodule size is ? 1.0 cm, follow-up imaging at 1, 2, 3, and 5 years is recommended. TR5: If nodule size is ? 1.0 cm, FNA is recommended. If nodule size is ? 0.5 cm, annual follow-up for up to 5 years is recommended. TR 1 thyroid nodules have a 0.3 % risk of malignancy. TR 2 thyroid nodules have a 1.5 % risk of malignancy. TR 3 thyroid nodules have a 4.8 % risk of malignancy. TR 4 thyroid nodules have a 9.1 % risk of malignancy. TR 5 thyroid nodules have a 35 % risk of malignancy. [facility], , 04/07/2025 2:52 PM
== END | disposition home or self-care (01) ==
LOC: RADUSWWP 14:31
PROVIDERS: ATTEND Family Medicine
DX: E04.1 Nontoxic single thyroid nodule (principal)
CPT/HCPCS: 76536